=== PATIENT | female | born 1970 | race Caucasian/White ===

== ENCOUNTER → 2019-09-20 | Outpatient (CLI) | payer SELFPAY | PROVIDERS: Family Provider Nurse Practitioner; Visit Provider Podiatrist Foot & Ankle Surgery | DX: Z46.89 Encounter for fitting and adjustment of other specified devices (principal); M21.42 Flat foot [pes planus] (acquired), left foot; M21.41 Flat foot [pes planus] (acquired), right foot | CPT/HCPCS: L3030 ==

== ENCOUNTER → 2019-11-22 07:59 | Outpatient (BNVA) | payer BC, SELFPAY | PROVIDERS: Family Provider Nurse Practitioner; PCP Nurse Practitioner; Visit Provider Specialist | DX: G62.9 Polyneuropathy, unspecified (principal) | CPT/HCPCS: 99213 ==

== ENCOUNTER 2020-02-06 21:32 | Emergency (ER) | payer BC, SELFPAY ==
[2020-02-06 21:44] VITALS: BP 141/89; PULSE 80; RESP 16; TEMP 36.8; O2SAT 96; BMI 34.7
--- NOTE | 2020-02-06 21:47 | ED_ITS ---
HPI - Female Genitourinary General: Chief complaint: Urogenital-Female Stated complaint: poss uti Time Seen by Provider: 02/06/20 21:46 History of Present Illness: HPI Narrative: Patient comes in today for complaints of suprapubic, pelvic pain. Patient states that she was on Macrobid about 3 weeks ago for similar symptoms with good results. But about 3 days after stopping the antibiotic she started having recurrence of symptoms. Patient does have a history of urinary tract infections and renal calculi. Patient appears well. Patient appears in no pain. Patient states that she is not much discomfort and does not think it similar to her previous renal calculi events. Review of Systems General: Reports: 10 or more systems reviewed and unremarkable except in HPI and below : Reports: dysuria PFSH ED PFSH: Family History (Updated 12/19/19 @ 16:42 by Alba Licea LPN) Mother Thyroid condition Father Heart disease Other CAD (coronary artery disease) Cancer Diabetes Gout, unspecified Hypertension Stroke Social History Smoking and tobacco status: never smoked Smoking risk assessment/counseling performed?: No Alcohol intake: never Desire information about alcohol rehabilitation?: No Counseling given: No Desire information about substance/drug rehabilitation?: No Counseling given: No Caregiver/support person: No Lives independently: Yes Household members: spouse Marital status: Number of children: 1 Current occupational status: disabled History of recent travel: No Physical Exam Const: COMMON NORMALS: no acute distress and patient oriented x3 GENERAL APPEARANCE: cooperative HENMT: COMMON NORMALS: normocephalic and Normal external nose present HEAD & SCALP: normal to inspection and normocephalic NOSE: Normal external nose present MOUTH: Normal oral and palatal mucosa present Eye: GENERAL EYE: appearance normal, both eyes and all related structures Neck/C-Spine: COMMON NORMALS: full ROM Chest: COMMONS NORMALS: normal inspection of the chest Resp: COMMON NORMALS: normal respiratory effort EFFORT & INSPECTION: Yes able to speak in complete sentences Cardio: COMMON NORMALS: regular rate and regular rhythm RATE: regular rate RHYTHM: regular rhythm GI: COMMON NORMALS: negative for non-tender (mild tenderness in suprapubic area) : COMMON NORMALS: Yes no CVA tenderness BLADDER/KIDNEY EXAM: Yes no CVA tenderness Back/Pelvis: COMMON NORMALS: no CVA tenderness and thoracic and lumbar spine normal to inspection Extremity: COMMON NORMALS: normal to inspection Neuro: COMMON NORMALS: patient oriented x3 and moves all extremities Psych: COMMON NORMALS: mental status grossly normal and cooperative Skin: COMMON NORMALS: no rashes or lesions noted GENERAL SKIN EXAM: no rashes or lesions noted Course Vital Signs: Vital signs: Vital Signs Temperature 98.2 F 02/06/20 21:44 Pulse Rate 63 02/06/20 22:35 Respiratory Rate 16 02/06/20 22:35 Blood Pressure 112/65 02/06/20 22:35 Pulse Oximetry 96 02/06/20 22:35 MDM - Female MDM Narrative: Medical decision making narrative: Patient comes in today for complaints of urinary difficulty. On exam patient has some suprapubic abdominal pain, no significant CVA tenderness. Vital signs are normal. Respirations are even lungs are clear to auscultation. Patient appears well. No signs of serious injury or illness. Differential diagnosis includes but not limited to urinary tract infection, pyelonephritis, cystitis, renal calculi. Urinalysis was positive for large amounts white blood cells. Patient was started on Keflex 500 mg for urinary tract infection. Patient reports understanding of care plan and need for follow-up. Lab Data: Labs: Lab Results 02/06/20 Range/Units 21:50 Urine Color [place]acle (Yellow) Urine Appearance Cloudy (CLEAR) Urine pH TNP Ur Specific Gravit y TNP Urine Protein TNP Urine Glucose (UA) TNP Urine Ketones TNP Urine Blood TNP Urine Nitrate TNP Urine Bilirubin TNP Urine Urobilinogen TNP Ur Leukocyte Yasmeen ase TNP Urine RBC 0-4 H (0-2) /hpf Urine WBC Too numerous to c nt H (0-5) /hpf Ur Squamous Epith Cells 0-4 H (0-5) Ur Transition Epit h Cell 0-4 /hpf Urine Bacteria 3+ H (NONE) Discharge Plan Discharge Patient Disposition: Home, Self-Care Clinical Impression: Urinary tract infection Qualifiers: Urinary tract infection type: acute cystitis Hematuria presence: without hematuria Qualified Code(s): N30.00 - Acute cystitis without hematuria Condition: Stable Prescriptions: New cephalexin 500 mg capsule 500 mg PO TID 7 Days Qty: 21 RF: 0 No Action Ozempic 1 mg/dose (2 mg/1.5 mL) pen injector 1 mg SUBCUT .weekly RF: 0 levothyroxine 75 mcg capsule 75 mcg PO QDAY RF: 0 pregabalin [Lyrica] 150 mg capsule 150 mg PO TID RF: 0 metformin 750 mg tablet extended release 24 hr 750 mg PO BID RF: 0 cetirizine 10 mg capsule 10 mg PO QDAY RF: 0 diltiazem HCl [Cardizem] 120 mg tablet 120 mg PO DAILY RF: 0 flecainide 50 mg tablet 50 mg PO BID RF: 0 Eliquis 5 mg tablet 5 mg PO BID RF: 0 metoprolol tartrate 50 mg tablet 50 mg PO BID RF: 0 cyclobenzaprine 10 mg tablet 10 mg PO TID PRNRF: 0 ergocalciferol (vitamin D2) 50,000 unit capsule 50,000 unit PO ONCE RF: 0 omeprazole 20 mg capsule,delayed release(DR/EC) 20 mg PO QDAY RF: 0 tramadol 50 mg tablet 50 mg PO BID PRNRF: 0 zonisamide [Zonegran] 100 mg capsule 400 mg PO QDAY Qty: 120 RF: 11 trazodone 50 mg tablet 150 mg PO DAILY Qty: 90 RF: 11 Referrals: Reggie Bennett, [facility] [Primary Care Provider] - Discharge Diet: Usual diet Discharge Activity: Increase activity as tolerated Patient Instructions: Urinary Tract Infection in Women (ED) Activity Restrictions/Additional Instructions: Drink plenty of water with medication. Take antibiotics as directed for the next 7 days. Follow-up with primary care in 1 week for recheck of urine. Return to the ER for high fever, nausea and vomiting, or new concerns. 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
[2020-02-06 21:57] VITALS: BP 107/58; PULSE 64; RESP 18; O2SAT 97
[2020-02-06 22:13] LABS: Urine Appearance Cloudy (CLEAR); Urine Color Orange (Yellow)
[2020-02-06 22:14] LABS: Add Urine Microscopic? YES
[2020-02-06 22:23] LABS: Add Urine Culture? Yes; Bacteria Urine 3+; RBC Urine 0-4 /hpf (0-2); Squamous Epithelial Cell Urine 0-4 (0-5); Transitional Epi Cells Urine 0-4 /hpf; WBC Urine TOO NUMEROUS TO CNT /hpf (0-5)
[2020-02-06 22:35] VITALS: BP 112/65; PULSE 63; RESP 16; O2SAT 96
[2020-02-06] MEDS: cephALEXin 500 mg Capsule PO (22:56)
--- NOTE | 2020-02-06 23:00 | PC.NURSE ---
pt. care and report given to Israel Mondragon RN
== END 2020-02-06 22:59 | disposition home or self-care (01) ==
PROVIDERS: Emergency Provider Nurse Practitioner Family; PCP Nurse Practitioner
DX: N30.00 Acute cystitis without hematuria (principal); Z79.01 Long term (current) use of anticoagulants; Z79.84 Long term (current) use of oral hypoglycemic drugs
CPT/HCPCS: 12345; 81001; 87077; 87086; 87186; 99282; 99283

== ENCOUNTER 2020-03-18 13:15 | Emergency (ER) | payer BC, SELFPAY ==
[2020-03-18 13:20] VITALS: BMI 36.1
[2020-03-18 13:25] VITALS: BP 166/118; PULSE 62; RESP 18; TEMP 36.6; O2SAT 98
--- NOTE | 2020-03-18 13:55 | CTR_ITS ---
PROCEDURE INFORMATION: Exam: CT Head Without Contrast Exam date and time: 03/18/2020 2:06 PM Age: 50 years old Clinical indication: Pain; Patient HX: C/O R earache, headache and dizziness; Additional info: Headache TECHNIQUE: Imaging protocol: Computed tomography of the head without contrast. Radiation optimization: All CT scans at this facility use at least one of these dose optimization techniques: automated exposure control; mA and/or kV adjustment per patient size (includes targeted exams where dose is matched to clinical indication); or iterative reconstruction. COMPARISON: No relevant prior studies available. RADIATION DOSE METRICS: Total DLP (mGy-cm): 809.89 FINDINGS: Brain: Normal. No hemorrhage. Unremarkable white matter. No mass effect. Ventricles: No hydrocephalus or evidence of increased intracranial pressure. Bones/joints: Unremarkable. No acute fracture. Sinuses: Visualized sinuses are unremarkable. No fluid levels. Mastoid air cells: Visualized mastoid air cells are well aerated. Soft tissues: Unremarkable. CT/CT head wo con* [id number] IMPRESSION: No acute intracranial abnormality identified. Radiation Dose CTDIVOL = (mGy): DLP = 809.89 (mGy-cm)
--- NOTE | 2020-03-18 13:56 | ED_ITS ---
HPI - General Adult General: Chief complaint: General Medical Stated complaint: earache Time Seen by Provider: 03/18/20 13:25 History of Present Illness: HPI narrative: Patient had a phone office visit for an earache 2 days ago and was prescribed Augmentin. Since that time she malaise and generalized weakness, severe headache, and also some atypical chest pain. Onset (ago): day(s) Associated symptoms: Reports no associated symptoms Review of Systems General: Reports: 10 or more systems reviewed and unremarkable except in HPI and below PFSH ED PFSH: Medical History Adult hypothyroidism Atrial fibrillation Controlled type 2 diabetes mellitus with hyperglycemia, without long-term current use of insulin HTN (hypertension) Hyperlipidemia Surgical History H/O cystoscopy 2014 History of cholecystectomy History of colonoscopy Endoscopy 2016 History of hysterectomy Family History Mother Thyroid condition Father Heart disease Other CAD (coronary artery disease) Cancer Diabetes Gout, unspecified Hypertension Stroke Social History Smoking and tobacco status: never smoked Smoking risk assessment/counseling performed?: No Alcohol intake: never Desire information about alcohol rehabilitation?: No Counseling given: No Desire information about substance/drug rehabilitation?: No Counseling given: No Caregiver/support person: No Lives independently: Yes Household members: spouse Marital status: Number of children: 1 Current occupational status: disabled History of recent travel: No Physical Exam Const: COMMON NORMALS: no acute distress, healthy appearing and well nourished GENERAL APPEARANCE: cooperative and well developed HENMT: COMMON NORMALS: normocephalic and atraumatic HEAD & SCALP: normal to inspection, normocephalic and atraumatic Eye: GENERAL EYE: appearance normal, both eyes and all related structures Neck/C-Spine: COMMON NORMALS: full ROM, no lymphadenopathy and no meningeal signs GENERAL: Yes normal visual inspection CERVICAL SPINE: Yes cervical ROM normal and Yes normal cervical lordosis Chest: COMMONS NORMALS: normal inspection of the chest and normal palpation of entire chest wall Resp: COMMON NORMALS: normal respiratory effort, clear to auscultation bilaterally and percussion normal AUSCULTATION: clear to auscultation bilaterally PERCUSSION: percussion normal Cardio: COMMON NORMALS: regular rate, regular rhythm, S1 normal heart sound present and S2 normal heart sound present JUGULAR VENOUS DISTENTION: no JVD PALPATION: normal PMI RATE: regular rate RHYTHM: regular rhythm HEART SOUNDS: S1 normal heart sound present and S2 normal heart sound present GI: COMMON NORMALS: Soft to palpation and No hepatosplenomegaly present INSPECTION: Yes normal to inspection PALPATION: Yes Soft to palpation and Yes No hepatosplenomegaly present PERCUSSION: normal to percussion : COMMON NORMALS: Yes no CVA tenderness BLADDER/KIDNEY EXAM: Yes no CVA tenderness Back/Pelvis: COMMON NORMALS: no CVA tenderness, thoracic and lumbar spine normal to inspection and thoraco-lumbar ROM normal Extremity: COMMON NORMALS: normal to inspection, full ROM and capillary refill normal Neuro: MENINGEAL SIGNS: Yes no meningeal signs Skin: COMMON NORMALS: no rashes or lesions noted, no wounds and turgor normal GENERAL SKIN EXAM: no rashes or lesions noted, elasticity normal and turgor normal LESIONS: no lesions RASHES: no rashes TRAUMA: no lacerations or abrasions HAIR: normal NAILS: normal Course Vital Signs: Vital signs: Vital Signs Temperature 97.9 F 03/18/20 13:25 Pulse Rate 62 03/18/20 13:25 Respiratory Rate 18 03/18/20 13:25 Blood Pressure 166/118 03/18/20 13:25 Pulse Oximetry 98 03/18/20 13:25 [facility] - General Adult Lab Data: Labs: Lab Results 03/18/20 03/18/20 03/18/20 Range/Units 14:04 14:04 14:04 WBC 9.0 (4.0-10.0) 10^3/ uL RBC 4.30 (4.1-5.3) 10^6/u L Hgb 12.4 (11.5-15.3) g/dL Hct 39.6 (37.0-47.0) % MCV 92.1 (81-99) fL MCH 28.8 (28.0-34.0) pg MCHC 31.3 (30.0-36.0) g/dL RDW 13.3 (12.1-15.1) % Plt Count 259 (130-400) 10^3/c mm MPV 10.1 (7.4-10.4) fL Neut % (Auto) 52.1 % Lymph % (Auto) 38.4 % Marin % (Auto) 5.5 % Eos % (Auto) 3.1 % Baso % (Auto) 0.8 % Neut # (Auto) 4.7 (1.8-7.7) 10^3/u L Lymph # (Auto) 3.5 (0.8-4.8) 10^3/u L Marin # (Auto) 0.5 (0.2-0.9) 10^3/u L Eos # (Auto) 0.3 (0.0-0.8) 10^3/u L Baso # (Auto) 0.1 (0.0-0.1) 10^3/u L Nucleated RBC % (a uto) 0 % Nucleated RBCs # 0.0 /100WBC Lactate 0.8 (0.5-2.2) mmol/L Troponin T Baselin e 7 (0-10) ng/L Discharge Plan Discharge Prescriptions: No Action Ozempic 1 mg/dose (2 mg/1.5 mL) pen injector 1 mg SUBCUT .weekly RF: 0 levothyroxine 75 mcg capsule 75 mcg PO DAILY RF: 0 cetirizine 10 mg capsule 10 mg PO DAILY RF: 0 diltiazem HCl [Cardizem] 120 mg tablet 60 mg PO BID RF: 0 Eliquis 5 mg tablet 5 mg PO BID RF: 0 metoprolol tartrate 50 mg tablet 50 mg PO BID RF: 0 cyclobenzaprine 10 mg tablet 10 mg PO TID PRN (Reason: Muscle Spasm) RF: 0 omeprazole 20 mg capsule,delayed release(DR/EC) 20 mg PO DAILY RF: 0 amoxicillin-pot clavulanate [Augmentin] 875-125 mg Tablet 1 tab PO Q12H RF: 0 aspirin 325 mg Tablet 325 mg PO PRN RF: 0 Tylenol Extra Strength 500 mg Tablet 500 - 1,000 mg PO PRN RF: 0 potassium citrate 10 mEq (1,080 mg) tablet extended release 10 meq PO TID RF: 0 Vitamin D3 50 mcg (2,000 unit) Tablet 50 mcg PO DAILY RF: 0 trazodone 50 mg tablet 150 mg PO BEDTIME PRN (Reason: Sleep) RF: 0 Zonegran 100 mg capsule 400 mg PO DAILY RF: 0 Coding Level of Care Code 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
[2020-03-18 14:14] LABS: Basophils # 0.1 10^3/uL (0.0-0.1); Basophils % 0.8 %; Eosinophils # 0.3 10^3/uL (0.0-0.8); Eosinophils % 3.1 %; Hematocrit 39.6 % (37.0-47.0); Hemoglobin 12.4 g/dL (11.5-15.3); Lymphocytes # 3.5 10^3/uL (0.8-4.8); Lymphocytes % 38.4 %; Mean Corpuscular HGB Conc 31.3 g/dL (30.0-36.0); Mean Corpuscular Hemoglobin 28.8 pg (28.0-34.0); Mean Corpuscular Volume 92.1 fL (81-99); Mean Platelet Volume 10.1 fL (7.4-10.4); Monocytes # 0.5 10^3/uL (0.2-0.9); Monocytes % 5.5 %; Neutrophils # 4.7 10^3/uL (1.8-7.7); Neutrophils % 52.1 %; Nucleated Red Blood Cells % 0 %; Platelet Count 259 10^3/cmm (130-400); Red Cell Distribution Width 13.3 % (12.1-15.1)
--- NOTE | 2020-03-18 14:14 | PC.NURSE ---
TO CT SCAN PER CART
[2020-03-18 14:33] LABS: Lactate (Lactic Acid level) 0.8 mmol/L (0.5-2.2); Troponin(5th) Baseline 7 ng/L (0-10)
[2020-03-18 14:43] LABS: Alanine Aminotransferase 13 U/L (0-33); Albumin Level 3.9 g/dL (3.5-5.2); Alkaline Phosphatase 72 IU/L (35-105); Anion Gap 14.2 (5-19); Aspartate Amino Transferase 12 U/L (0-32); Blood Urea Nitrogen 25 mg/dL (6-20); Calcium 9.4 mg/dL (8.5-10.5); Carbon Dioxide 25 mmol/L (22-29); Chloride 105 mmol/L (98-107); Globulin 2.3 g/dL (1.3-4.6); Glomerular Filtration Rate 58.5 mL/min (90-130); Glucose 155 mg/dL (65-115); Magnesium 1.8 mg/dL (1.7-2.3); Osmolality Calculated 290 mOsm/kg (285-295); Phosphorus 3.7 mg/dL (2.5-4.5); Potassium 4.2 mmol/L (3.5-5.1); Sodium 140 mmol/L (136-145); Thyroid Stimulating Hormone 0.94 uIU/mL (0.27-4.20); Total Bilirubin 0.2 mg/dL (0.15-1.2); Total Protein 6.2 g/dL (6.6-8.7)
[2020-03-18 15:01] LABS: Add Urine Microscopic? NO
[2020-03-18 15:09] LABS: Bilirubin Urine Neg (NEGATIVE); Blood Urine Neg (Negative); Glucose Urine UA Norm (Normal); Ketones Urine Negative (Negative); Nitrate Urine Negative (Negative); Protein Urine Neg (Negative); Urine Appearance Clear (CLEAR); Urine Color Yellow (Yellow); pH Urine 5 (5-7)
[2020-03-18 15:10] LABS: Leukocyte Esterase Urine Negative (Negative); Urobilinogen Urine Norm (Negative)
[2020-03-18] MEDS: acetaminophen 500 mg Tablet 1000 MG PO (15:38)
[2020-03-18 16:16] LABS: Troponin 5 2HR 6.95 ng/L (0-10)
[2020-03-18 16:41] LABS: Troponin 5 2HR Delta -0.05 ABS# (0-10)
--- NOTE | 2020-03-18 19:56 | ECG_ITS ---
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 Measurements Intervals [place] Rate: 53 P: 19 MN: 177 QRS: 30 QRSD: 89 T: 37 QT: 409 QTc: 387 Interpretive Statements SINUS BRADYCARDIA WITH SINUS ARRHYTHMIA Compared to ECG 02/15/2019 17:46:30 Sinus rhythm no longer present Myocardial infarct finding no longer present Electronically Signed On 03-18-2020 15:16:24 CDT by Cezar Sanchez M.D. [id number]
== END 2020-03-18 16:43 | disposition home or self-care (01) ==
PROVIDERS: Emergency Provider Family Medicine; Family Provider Nurse Practitioner; PCP Nurse Practitioner Family
DX: H92.09 Otalgia, unspecified ear (principal); Z79.01 Long term (current) use of anticoagulants; Z79.82 Long term (current) use of aspirin; I48.91 Unspecified atrial fibrillation; E11.9 Type 2 diabetes mellitus without complications; I10 Essential (primary) hypertension; E78.5 Hyperlipidemia, unspecified
CPT/HCPCS: 12345; 36415; 70450; 80053; 81003; 83605; 83735; 84100; 84443; 84484; 85025; 93005; 99283

== ENCOUNTER → 2020-04-24 13:41 | Outpatient (BNVA) | payer BC, SELFPAY | PROVIDERS: Family Provider Nurse Practitioner; PCP Nurse Practitioner Family; Referring Provider Nurse Practitioner Family; Visit Provider Dermatology | DX: D22.9 Melanocytic nevi, unspecified (principal); L90.5 Scar conditions and fibrosis of skin; Z12.83 Encounter for screening for malignant neoplasm of skin | CPT/HCPCS: 99203 ==

== ENCOUNTER 2020-08-20 06:39 | Emergency (ER) | payer BC, SELFPAY ==
[2020-08-20 06:43] VITALS: BP 162/101; PULSE 68; RESP 15; TEMP 36.7; O2SAT 98; BMI 36.1
[2020-08-20 07:47] LABS: Blood Urine 2+ (Negative); Glucose Urine UA Norm (Normal); Ketones Urine Negative (Negative); Protein Urine 1+ (Negative); Specific Gravity, Urine 1.015 (1.005-1.030); Urine Appearance Clear (CLEAR); Urine Color Orange (Yellow); pH Urine 5 (5-7)
[2020-08-20 07:48] LABS: Add Urine Microscopic? YES; Bilirubin Urine 1+ (Negative); Leukocyte Esterase Urine Trace (Negative); Nitrate Urine Positive (Negative); Urobilinogen Urine 4 mg/dL (Negative)
[2020-08-20 07:52] LABS: Add Urine Culture? Yes; Bacteria Urine 1+ /hpf; RBC Urine 0-4 /hpf (0-2); WBC Urine 25-40 /hpf (0-5)
--- NOTE | 2020-08-20 07:53 | ED_ITS ---
HPI - Female Genitourinary General: Chief complaint: Urogenital-Female Stated complaint: lower abd pain/troubling urinating Time Seen by Provider: 08/20/20 06:47 History of Present Illness: HPI Narrative: 50-year-old female comes in complaining of dysuria urgency and frequency. She was treated last month for UTI and then again within the last week. She had a telehealth visit where she was prescribed a 5-day course of Bactrim and she is completed that and still having symptoms. She denies any flank pain she still has some dysuria initially had some hematuria that seem to resolved with the Bactrim. She not had any vomiting or diarrhea. MD elicited complaint: dysuria and UTI Pertinent past history: recurrent UTIs Onset (ago): day(s) Severity: moderate Female Urogenital Radiation: Non-Radiating Quality of pain: cramping Consistency: intermittent Vaginal discharge: none Vaginal bleeding: none Urinary symptoms: Dysuria, Frequency and Urgency Exacerbating factors: none Relieving factors: none Associated symptoms: Deny abdominal pain, short of breath, fevers/chills, headache(s), nausea, rash, seizures, syncope, vaginal discharge or weakness Review of Systems Const: Denies: fever(s), chills, body aches, change in appetite, fatigue or malaise ENMT: Denies: throat pain, ear or mastoid pain, nasal discharge or nasal congestion Card: Denies: syncope Resp: Denies: dyspnea, productive cough or non-productive cough GI: Denies: abdominal pain or nausea : Denies: vaginal discharge Skin/Breast: Denies: rash or pruritus Neuro: Denies: headache(s) [facility] ED PFSH: Medical History (Updated 08/20/20 @ 07:56 by Nico Sanchez DO) Adult hypothyroidism Atrial fibrillation Controlled type 2 diabetes mellitus with hyperglycemia, without long-term current use of insulin HTN (hypertension) Hyperlipidemia Surgical History H/O cystoscopy 2014 History of cholecystectomy History of colonoscopy Endoscopy 2016 History of hysterectomy Family History Mother Thyroid condition Father Heart disease Other CAD (coronary artery disease) Cancer Diabetes Gout, unspecified Hypertension Stroke Social History Smoking and tobacco status: never smoked Smoking risk assessment/counseling performed?: No Alcohol intake: never Desire information about alcohol rehabilitation?: No Counseling given: No Desire information about substance/drug rehabilitation?: No Counseling given: No Caregiver/support person: No Lives independently: Yes Household members: spouse Marital status: Number of children: 1 Current occupational status: disabled History of recent travel: No Physical Exam Const: COMMON NORMALS: no acute distress GENERAL APPEARANCE: cooperative and comfortable ORIENTATION/CONSCIOUSNESS: Yes awake, Yes oriented to person, Yes oriented to place and Yes oriented to time HENMT: COMMON NORMALS: normocephalic, atraumatic and hearing grossly normal bilaterally HEAD & SCALP: normocephalic and atraumatic Neck/C-Spine: COMMON NORMALS: no JVD Resp: COMMON NORMALS: normal respiratory effort, No retractions, No use of accessory muscles and clear to auscultation bilaterally AUSCULTATION: clear to auscultation bilaterally Cardio: COMMON NORMALS: no JVD, regular rate, regular rhythm and No murmurs present (Cardio) RATE: regular rate RHYTHM: regular rhythm GI: COMMON NORMALS: Soft to palpation and No hepatosplenomegaly present AUSCULTATION: Yes normoactive bowel sounds PALPATION: Yes Soft to palpation, No Tenderness to palpation present (GI), No Guarding due to palpation present (GI) and Yes No hepatosplenomegaly present Extremity: COMMON NORMALS: normal to inspection, capillary refill normal, no clubbing, cyanosis or edema, no calf tenderness and no pedal edema Neuro: SENSORIUM/ORIENTATION: Yes oriented to person, Yes oriented to place and Yes oriented to time Skin: COMMON NORMALS: no rashes or lesions noted GENERAL SKIN EXAM: no rashes or lesions noted Course Vital Signs: Vital signs: Vital Signs Temperature 98.1 F 08/20/20 06:43 Pulse Rate 68 08/20/20 06:43 Respiratory Rate 15 08/20/20 06:43 Blood Pressure 162/101 08/20/20 06:43 Pulse Oximetry 98 08/20/20 06:43 MDM - Female MDM Narrative: Medical decision making narrative: UA positive. Will culture. Started on Cipro for 5 days Lab Data: Labs: Lab Results 08/20/20 Range/Units 06:59 Urine Color [place] (Yellow) Urine Appearance Clear (CLEAR) Urine pH 5 (5-7) Ur Specific Gravit y 1.015 (1.005-1.030) Urine Protein 1+ H (Negative) Urine Glucose (UA) Norm (Normal) Urine Ketones Negative (Negative) Urine Blood 2+ H (Negative) Urine Nitrate Positive H (Negative) Urine Bilirubin 1+ H (Negative) Urine Urobilinogen 4 H (Negative) mg/dL Ur Leukocyte Yasmeen ase Trace H (Negative) Urine RBC 0-4 H (0-2) /hpf Urine WBC 25-40 H (0-5) /hpf Ur Squamous Epith Cells 5-10 H (0-5) /hpf Amorphous Sediment Not Reportable Urine Bacteria 1+ H (NONE) /hpf Discharge Plan Discharge Patient Disposition: Home Clinical Impression: Urinary tract infection Condition: Stable Prescriptions: New ciprofloxacin HCl 500 mg tablet 500 mg PO BID 7 Days Qty: 14 RF: 0 No Action levothyroxine 75 mcg capsule 75 mcg PO DAILY RF: 0 cetirizine 10 mg capsule 10 mg PO DAILY RF: 0 diltiazem HCl [Cardizem] 120 mg tablet 60 mg PO BID RF: 0 Eliquis 5 mg tablet 5 mg PO BID RF: 0 metoprolol tartrate 50 mg tablet 50 mg PO BID RF: 0 cyclobenzaprine 10 mg tablet 10 mg PO TID PRN (Reason: Muscle Spasm) RF: 0 omeprazole 20 mg capsule,delayed release(DR/EC) 20 mg PO DAILY RF: 0 Tylenol Extra Strength 500 mg Tablet 500 - 1,000 mg PO PRN RF: 0 potassium citrate 10 mEq (1,080 mg) tablet extended release 10 meq PO TID RF: 0 Vitamin D3 50 mcg (2,000 unit) Tablet 50 mcg PO DAILY RF: 0 Zonegran 100 mg capsule 400 mg PO DAILY RF: 0 Discharge Orders: Discharge Order (Routine); Ordered 08/20/20 Ordered By: Nico Sanchez Referrals: Zohra Leary NP [Primary Care Provider] - Discharge Diet: Usual diet Discharge Activity: Resume usual activity Coding Level of Care Code 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
[2020-08-20 08:06] VITALS: BP 186/98; PULSE 51; O2SAT 96
== END 2020-08-20 08:05 | disposition home or self-care (01) ==
PROVIDERS: Emergency Provider Family Medicine; PCP Nurse Practitioner Family
DX: N39.0 Urinary tract infection, site not specified (principal); Z79.01 Long term (current) use of anticoagulants; I48.91 Unspecified atrial fibrillation; E11.9 Type 2 diabetes mellitus without complications; I10 Essential (primary) hypertension; E78.5 Hyperlipidemia, unspecified
CPT/HCPCS: 12345; 81001; 87086; 99281; 99282

== ENCOUNTER 2020-09-09 03:42 | Observation (INO) | payer BC, SELFPAY ==
[2020-09-09] VITALS (47 sets, daily range): BP systolic 103–159; BP diastolic 62–104; PULSE 40–82; RESP 15–24; TEMP 36.5–37.2; O2SAT 92–100; BMI 34.2
--- NOTE | 2020-09-09 04:07 | XRR_ITS ---
PROCEDURE INFORMATION: Exam: XR Chest, 1 View Exam date and time: 09/09/2020 4:23 AM Age: 50 years old Clinical indication: Shortness of breath; Additional info: SOB TECHNIQUE: Imaging protocol: XR of the chest Views: 1 view. COMPARISON: CR Chest 2 views* [id number] 02/15/2019 12:17 PM FINDINGS: Lung volumes are somewhat low. Otherwise no focal right pulmonary consolidation is demonstrated on this single frontal image. Mild ill-defined opacification in left perihilar region is most compatible with atelectasis/infiltrate. No significant obscuration of the lateral costophrenic angles is demonstrated. No significant vascular congestion is demonstrated. Visualized cardiac silhouette size appears within normal limits. XR/XR chest 1V portable [id number] IMPRESSION: Mild ill-defined opacification in left perihilar region is most compatible with atelectasis/infiltrate.
[2020-09-09 04:13] LABS: Basophils % 0.4 %; Eosinophils # 0.1 10^3/uL (0.0-0.8); Eosinophils % 0.6 %; Hematocrit 39.5 % (37.0-47.0); Hemoglobin 12.5 g/dL (11.5-15.3); Lymphocytes # 1.4 10^3/uL (0.8-4.8); Lymphocytes % 17.2 %; Mean Corpuscular HGB Conc 31.6 g/dL (30.0-36.0); Mean Corpuscular Hemoglobin 28.7 pg (28.0-34.0); Mean Corpuscular Volume 90.6 fL (81-99); Mean Platelet Volume 10.4 fL (7.4-10.4); Monocytes # 0.4 10^3/uL (0.2-0.9); Monocytes % 4.6 %; Neutrophils # 6.16 10^3/uL (1.8-7.7); Neutrophils % 76.7 %; Nucleated Red Blood Cells % 0 %; Platelet Count 201 10^3/cmm (130-400); Red Blood Count 4.36 10^6/uL (4.1-5.3); Red Cell Distribution Width 13.8 % (12.1-15.1)
[2020-09-09 04:25] LABS: Lactate (Lactic Acid level) 1.9 mmol/L (0.5-2.2)
[2020-09-09 04:27] LABS: INR 1.28 (0.8-1.2)
[2020-09-09 04:28] LABS: Partial Thromboplastin Time 29.1 SECONDS (23.9-36.7); Troponin(5th) Baseline 11 ng/L (0-10)
[2020-09-09 04:35] LABS: Alanine Aminotransferase 16 U/L (0-33); Albumin Level 3.9 g/dL (3.5-5.2); Alkaline Phosphatase 95 IU/L (35-105); Anion Gap 13.5 (5-19); Aspartate Amino Transferase 14 U/L (0-32); Blood Urea Nitrogen 22 mg/dL (6-20); Calcium 8.9 mg/dL (8.5-10.5); Carbon Dioxide 25 mmol/L (22-29); Chloride 98 mmol/L (98-107); Creatine Phosphokinase 74 U/L (26-192); Globulin 2.7 g/dL (1.3-4.6); Glomerular Filtration Rate 43.2 mL/min (90-130); Glucose 327 mg/dL (65-115); Magnesium 1.8 mg/dL (1.7-2.3); NT Pro B Type Natriuretic Pept 134 pg/mL (0-125); Osmolality Calculated 290 mOsm/kg (285-295); Potassium 4.5 mmol/L (3.5-5.1); Sodium 132 mmol/L (136-145); Total Bilirubin 0.3 mg/dL (0.15-1.2); Total Protein 6.6 g/dL (6.6-8.7)
--- NOTE | 2020-09-09 05:15 | W.ED.CHESTPA ---
HPI - Chest Pain General: Chief Complaint: Chest Pain Stated Complaint: SOB Time Seen by Provider: 09/09/20 03:58 History of Present Illness: HPI narrative: 50-year-old female with a history of atrial fibrillation. She presents with shortness of breath and some chest discomfort developing over the last 2 days or so. She denies any fever or significant cough. She notes her legs are a bit more swollen than usual. She denies any coronary disease. She is anticoagulated. She also notes that her heart rate feels slow, and skips . She states that it races when she exerts herself. MD complaint: chest pain Pertinent past history: other Onset (ago): day(s) Timing of current episode: constant Prior episodes: Yes Onset: during rest Pain location: substernal Pain radiation: none Quality: heaviness Relieving factors: nothing Exacerbating factors: nothing Associated symptoms: Reports dyspnea, leg edema and palpitations; Deny diaphoresis, fever(s) or vomiting Review of Systems Const: Denies: fever(s) or diaphoresis Eyes: Denies: change in vision or blurry vision ENMT: Denies: odynophagia, swelling of lips/tongue, bleeding gums, dental pain, change in hearing, epistaxis, post nasal drip or sinus pain Card: Reports: palpitations Resp: Reports: dyspnea GI: Denies: vomiting : Denies: dysuria, urinary urgency or hematuria Musc: Denies: neck pain or joint warmth Skin/Breast: Denies: rash, pruritus or erythema Neuro: Denies: headache(s), dizziness or vertigo Psych: Denies: anxiety PFSH ED PFSH: Medical History (Updated 08/28/20 @ 00:00 by ) Adult hypothyroidism Atrial fibrillation Controlled type 2 diabetes mellitus with hyperglycemia, without long-term current use of insulin HTN (hypertension) Hyperlipidemia Surgical History H/O cystoscopy 2014 History of cholecystectomy History of colonoscopy Endoscopy 2016 History of hysterectomy Family History Mother Thyroid condition Father Heart disease Other CAD (coronary artery disease) Cancer Diabetes Gout, unspecified Hypertension Stroke Social History Smoking and tobacco status: never smoked Smoking risk assessment/counseling performed?: No Alcohol intake: never Desire information about alcohol rehabilitation?: No Counseling given: No Desire information about substance/drug rehabilitation?: No Counseling given: No Caregiver/support person: No Lives independently: Yes Household members: spouse Marital status: Number of children: 1 Current occupational status: disabled History of recent travel: No Physical Exam Const: GENERAL APPEARANCE: well developed ORIENTATION/CONSCIOUSNESS: Yes oriented to person, Yes oriented to place and Yes oriented to time HENMT: COMMON NORMALS: normocephalic, external ears normal and Normal external nose present HEAD & SCALP: normocephalic FACE & SINUS: normal facial exam NOSE: Normal external nose present and No nasal discharge present EXTERNAL EAR: Yes external ears normal Eye: COMMON NORMALS: Equal, round and reactive pupils present, EOMs intact bilaterally and conjunctivae normal EYELID: eyelids normal CONJUNCTIVA: Yes conjunctivae normal PUPIL: Yes Equal, round and reactive pupils present Neck/C-Spine: COMMON NORMALS: full ROM GENERAL: No tracheal deviation CERVICAL SPINE: Yes normal cervical lordosis and No Cervical spine tenderness Chest: COMMONS NORMALS: normal inspection of the chest CHEST: No tenderness Resp: COMMON NORMALS: clear to auscultation bilaterally EFFORT & INSPECTION: No tachypneic, No respiratory distress, No retractions, No uses accessory muscles and No tracheal deviation AUSCULTATION: clear to auscultation bilaterally, no rhonchi, no wheezes and lung sounds not diminished Cardio: COMMON NORMALS: regular rhythm RHYTHM: regular rhythm HEART SOUNDS: no murmurs PERIPHERAL PULSES: radial pulses present GI: INSPECTION: No abdominal distension AUSCULTATION: No Hyperactive bowel sounds present and No Hypoactive bowel sounds present PALPATION: No Guarding due to palpation present (GI) and No Rigid due to palpation PERCUSSION: no dullness to percussion and no tympanic to percussion : COMMON NORMALS: Yes no CVA tenderness BLADDER/KIDNEY EXAM: Yes no CVA tenderness Back/Pelvis: COMMON NORMALS: no CVA tenderness Neuro: SENSORIUM/ORIENTATION: Yes oriented to person, Yes oriented to place and Yes oriented to time Psych: COMMON NORMALS: mental status grossly normal Course Consultations: Consultation #1: anthony Time: 07:28 Vital Signs: Vital signs: Vital Signs Temperature 97.7 F 09/09/20 04:01 Pulse Rate 54 L 09/09/20 07:26 Respiratory Rate 18 09/09/20 07:26 Blood Pressure 133/77 09/09/20 07:26 Pulse Oximetry 96 09/09/20 07:26 MDM - Chest Pain MDM Narrative: Medical decision making narrative: 50-year-old female with a history of atrial fibrillation on 2 different antiarrhythmics. She presents with generalized weakness, and significant shortness of breath. No history of fever. Her creatinine is up at 1.3. Her baseline is 1. Her heart rate has been 42-52. She in the beginning was mildly hypotensive, but improved after fluid. Her saturations have been adequate on room air. She has a left lower lobe infiltrate on chest x-ray. Her COVID-19 rapid test is pending. She will go to the ICU. If her Covid antigen is positive, she will go to the viral ICU. Lab Data: Labs: Lab Results 09/09/20 09/09/20 09/09/20 Range/Units 03:59 03:59 03:59 WBC 8.0 (4.0-10.0) 10^3/ uL RBC 4.36 (4.1-5.3) 10^6/u L Hgb 12.5 (11.5-15.3) g/dL Hct 39.5 (37.0-47.0) % MCV 90.6 (81-99) fL MCH 28.7 (28.0-34.0) pg MCHC 31.6 (30.0-36.0) g/dL RDW 13.8 (12.1-15.1) % Plt Count 201 (130-400) 10^3/c mm MPV 10.4 (7.4-10.4) fL Neut % (Auto) 76.7 % Lymph % (Auto) 17.2 % Costilla % (Auto) 4.6 % Eos % (Auto) 0.6 % Baso % (Auto) 0.4 % Neut # (Auto) 6.16 (1.8-7.7) 10^3/u L Lymph # (Auto) 1.4 (0.8-4.8) 10^3/u L Cost[place] # (Auto) 0.4 (0.2-0.9) 10^3/u L Eos # (Auto) 0.1 (0.0-0.8) 10^3/u L Baso # (Auto) 0.0 (0.0-0.1) 10^3/u L Nucleated RBC % (a uto) 0 % Nucleated RBCs # 0.0 /100WBC PT 16.50 H (12.1-14.9) SECO NDS INR 1.28 H (0.8-1.2) APTT 29.1 (23.9-36.7) SECO NDS Sodium 132 L (136-145) mmol/L Potassium 4.5 (3.5-5.1) mmol/L Chloride 98 (98-107) mmol/L Carbon Dioxide 25 (22-29) mmol/L Anion Gap 13.5 (5-19) BUN 22 H (6-20) mg/dL Creatinine 1.3 H (0.5-0.9) mg/dL GFR Calculation 43.2 L (90-130) mL/min Glucose 327 H (65-115) mg/dL Calculated Osmolal ity 290 (285-295) mOsm/k g Lactate (0.5-2.2) mmol/L Calcium 8.9 (8.5-10.5) mg/dL Phosphorus 3.0 (2.5-4.5) mg/dL Magnesium 1.8 (1.7-2.3) mg/dL Total Bilirubin 0.3 (0.15-1.2) mg/dL AST 14 (0-32) U/L ALT 16 (0-33) U/L Alkaline Phosphata se 95 (35-105) IU/L Creatine Kinase 74 (26-192) U/L Troponin T Baselin e (0-10) ng/L Troponin T 120 Min taty (0-10) ng/L Delta Troponin T (0-10) ABS# NT-Pro-B Natriuret Pep 134 H (0-125) pg/mL Total Protein 6.6 (6.6-8.7) g/dL Albumin 3.9 (3.5-5.2) g/dL Globulin 2.7 (1.3-4.6) g/dL Urine Color (Yellow) Urine Appearance (CLEAR) Urine pH (5-7) Ur Specific Gravit y (1.005-1.030) Urine Protein (Negative) Urine Glucose (UA) (Normal) Urine Ketones (Negative) Urine Blood (Negative) Urine Nitrate (Negative) Urine Bilirubin (Negative) Urine Urobilinogen (Negative) mg/dL Ur Leukocyte Yasmeen ase (Negative) 09/09/20 09/09/20 09/09/20 Range/Units 03:59 03:59 06:05 WBC (4.0-10.0) 10^3/ uL RBC (4.1-5.3) 10^6/u L Hgb (11.5-15.3) g/dL Hct (37.0-47.0) % MCV (81-99) fL MCH (28.0-34.0) pg MCHC (30.0-36.0) g/dL RDW (12.1-15.1) % Plt Count (130-400) 10^3/c mm MPV (7.4-10.4) fL Neut % (Auto) % Lymph % (Auto) % Costilla % (Auto) % Eos % (Auto) % Baso % (Auto) % Neut # (Auto) (1.8-7.7) 10^3/u L Lymph # (Auto) (0.8-4.8) 10^3/u L Costilla # (Auto) (0.2-0.9) 10^3/u L Eos # (Auto) (0.0-0.8) 10^3/u L Baso # (Auto) (0.0-0.1) 10^3/u L Nucleated RBC % (a uto) % Nucleated RBCs # /100WBC PT (12.1-14.9) SECO NDS INR (0.8-1.2) APTT (23.9-36.7) SECO NDS Sodium (136-145) mmol/L Potassium (3.5-5.1) mmol/L Chloride (98-107) mmol/L Carbon Dioxide (22-29) mmol/L Anion Gap (5-19) BUN (6-20) mg/dL Creatinine (0.5-0.9) mg/dL GFR Calculation (90-130) mL/min Glucose (65-115) mg/dL Calculated Osmolal ity (285-295) mOsm/k g Lactate 1.9 (0.5-2.2) mmol/L Calcium (8.5-10.5) mg/dL Phosphorus (2.5-4.5) mg/dL Magnesium (1.7-2.3) mg/dL Total Bilirubin (0.15-1.2) mg/dL AST (0-32) U/L ALT (0-33) U/L Alkaline Phosphata se (35-105) IU/L Creatine Kinase (26-192) U/L Troponin T Baselin e 11 H (0-10) ng/L Troponin T 120 Min taty 10.30 H (0-10) ng/L Delta Troponin T -0.70 L (0-10) ABS# NT-Pro-B Natriuret Pep (0-125) pg/mL Total Protein (6.6-8.7) g/dL Albumin (3.5-5.2) g/dL Globulin (1.3-4.6) g/dL Urine Color (Yellow) Urine Appearance (CLEAR) Urine pH (5-7) Ur Specific Gravit y (1.005-1.030) Urine Protein (Negative) Urine Glucose (UA) (Normal) Urine Ketones (Negative) Urine Blood (Negative) Urine Nitrate (Negative) Urine Bilirubin (Negative) Urine Urobilinogen (Negative) mg/dL Ur Leukocyte Yasmeen ase (Negative) 09/09/20 Range/Units 06:13 WBC (4.0-10.0) 10^3/ uL RBC (4.1-5.3) 10^6/u L Hgb (11.5-15.3) g/dL Hct (37.0-47.0) % MCV (81-99) fL MCH (28.0-34.0) pg MCHC (30.0-36.0) g/dL RDW (12.1-15.1) % Plt Count (130-400) 10^3/c mm MPV (7.4-10.4) fL Neut % (Auto) % Lymph % (Auto) % Cost[place] % (Auto) % Eos % (Auto) % Baso % (Auto) % Neut # (Auto) (1.8-7.7) 10^3/u L Lymph # (Auto) (0.8-4.8) 10^3/u L Cost[place] # (Auto) (0.2-0.9) 10^3/u L Eos # (Auto) (0.0-0.8) 10^3/u L Baso # (Auto) (0.0-0.1) 10^3/u L Nucleated RBC % (a uto) % Nucleated RBCs # /100WBC PT (12.1-14.9) SECO NDS INR (0.8-1.2) APTT (23.9-36.7) SECO NDS Sodium (136-145) mmol/L Potassium (3.5-5.1) mmol/L Chloride (98-107) mmol/L Carbon Dioxide (22-29) mmol/L Anion Gap (5-19) BUN (6-20) mg/dL Creatinine (0.5-0.9) mg/dL GFR Calculation (90-130) mL/min Glucose (65-115) mg/dL Calculated Osmolal ity (285-295) mOsm/k g Lactate (0.5-2.2) mmol/L Calcium (8.5-10.5) mg/dL Phosphorus (2.5-4.5) mg/dL Magnesium (1.7-2.3) mg/dL Total Bilirubin (0.15-1.2) mg/dL AST (0-32) U/L ALT (0-33) U/L Alkaline Phosphata se (35-105) IU/L Creatine Kinase (26-192) U/L Troponin T Baselin e (0-10) ng/L Troponin T 120 Min taty (0-10) ng/L Delta Troponin T (0-10) ABS# NT-Pro-B Natriuret Pep (0-125) pg/mL Total Protein (6.6-8.7) g/dL Albumin (3.5-5.2) g/dL Globulin (1.3-4.6) g/dL Urine Color Dark yellow (Yellow) Urine Appearance Clear (CLEAR) Urine pH 5 (5-7) Ur Specific Gravit y 1.020 (1.005-1.030) Urine Protein Neg (Negative) Urine Glucose (UA) Norm (Normal) Urine Ketones Negative (Negative) Urine Blood Neg (Negative) Urine Nitrate Negative (Negative) Urine Bilirubin Neg (Negative) Urine Urobilinogen Norm (Negative) mg/dL Ur Leukocyte Yasmeen ase Negative (Negative) Discharge Plan Discharge Prescriptions: No Action levothyroxine 75 mcg capsule 75 mcg PO DAILY RF: 0 cetirizine 10 mg capsule 10 mg PO DAILY RF: 0 cyclobenzaprine 10 mg tablet 10 mg PO TID PRN (Reason: Muscle Spasm) RF: 0 omeprazole 20 mg capsule,delayed release(DR/EC) 20 mg PO DAILY RF: 0 metoprolol tartrate 50 mg tablet 50 mg PO BID Qty: 30 RF: 0 Eliquis 5 mg tablet 5 mg PO BID Qty: 60 RF: 0 diltiazem HCl [Cardizem] 120 mg tablet 60 mg PO BID Qty: 60 RF: 0 Tylenol Extra Strength 500 mg Tablet 500 - 1,000 mg PO PRN RF: 0 potassium citrate 10 mEq (1,080 mg) tablet extended release 10 meq PO TID RF: 0 Vitamin D3 50 mcg (2,000 unit) Tablet 50 mcg PO DAILY RF: 0 Zonegran 100 mg capsule 400 mg PO DAILY RF: 0 Coding Level of Care Code ED Stem Roller Operator for Chg Fwd Exam Comprehensive
--- NOTE | 2020-09-09 06:07 | ECG_ITS ---
[facility] Test Date: 2020-09-09 Pat Name: Nyasia Elkins Department: Room: Gender: Female News Director: : 1970 Requested By: Sharad Mehta Order Number: [id number] Kandi MD: Rosa Isela Chapman M.D. Measurements Intervals Russell Rate: 42 P: 35 NC: 176 QRS: 53 QRSD: 86 T: 51 QT: 485 QTc: 408 Interpretive Statements SINUS BRADYCARDIA Compared to ECG 03/18/2020 14:19:46 Sinus arrhythmia no longer present Electronically Signed On 09-10-2020 21:13:06 [employer] TEAM MEMBER by Rosa Isela Chapman M.D. [email or web address]
[2020-09-09 06:24] LABS: Add Urine Microscopic? NO
[2020-09-09 06:49] LABS: Bilirubin Urine Neg (Negative); Blood Urine Neg (Negative); Glucose Urine UA Norm (Normal); Ketones Urine Negative (Negative); Leukocyte Esterase Urine Negative (Negative); Nitrate Urine Negative (Negative); Protein Urine Neg (Negative); Urine Appearance Clear (CLEAR); Urine Color Dark Yellow (Yellow); Urobilinogen Urine Norm (Negative); pH Urine 5 (5-7)
[2020-09-09] MEDS: azithromycin 500 MG in sodium chloride 0.9% 250 ML 250 MG IV (07:19)
[2020-09-09] MEDS: sodium chloride 0.9% 1,000 ML 999 ML IV (07:19)
[2020-09-09] MEDS: cefTRIAXone 1,000 MG in sodium chloride 0.9% (plus) 50 ML 100 MG IV (07:19)
--- NOTE | 2020-09-09 07:27 | PC.NURSE ---
0700- Received report assumed care. No changes noted from report. Pt stable. Alert and oriented.
[2020-09-09 07:43] LABS: SARS Covid-2 Antigen Positive (Negative)
--- NOTE | 2020-09-09 07:55 | P.HP_ITS ---
Providers/Chief Complaint Primary Care Provider: Zohra Leary NP Chief Complaint: SOB History of Present Illness Nyasia Elkins is a 50 year old female presents to emergency department after she nearly passed out. Reports that for the last 3 days she has been more tired and having dry cough and some dyspnea on exertion. She has been working Thursday night and reports that she was sleeping whole day Thursday. She was not eating much yesterday. Reports some left precordial 2 out of 10 nonradiating pressure-like discomfort without associated nausea, diaphoresis or shortness of breath at rest. Denies any alleviating or aggravating factors. She follows with Dr. Chapman for atrial fibrillation and denies previous history of coronary artery disease. She is on metoprolol and diltiazem for long period of time and never had issues until today when she was found to have bradycardia with heart rate in the 50s. Reports her baseline heart rate is in the 80s. In ER she was tested positive for COVID-19 and had evidence of pneumonia on chest x-ray involving left perihilar region. She is anticoagulated with Eliquis and was saturating 96% on room air in ER. Her troponin was slightly elevated likely due to kidney disease and showed no concerning delta. EKG showed sinus bradycardia with no specific ST-T changes. Reports that she frequently gets lower extremity swelling if she is driving car or on her feet for prolonged period of time. Review of Systems Const: Denies: fever(s) or chills Eyes: Denies: change in vision ENMT: Denies: throat pain or change in hearing Card: Reports: chest pain; Denies: edema or lightheadedness Resp: Denies: dyspnea or productive cough GI: Denies: abdominal pain, nausea, vomiting, dysphagia, diarrhea, constipation, hematochezia or melena : Denies: difficulty voiding Musc: Denies: joint pain or joint swelling Skin/Breast: Denies: rash or erythema Neuro: Reports: headache(s) (Very mild frontal and back of her head); Denies: weakness in extremities Psych: Denies: depression Endo: Denies: excessive sweating Christopher/Lymph: Denies: easy bleeding or tender lymph nodes All/Imm: Denies: throat swelling Medications/Allergies Home Medications Medication Instructions Recorded Confirmed Last Taken Type cetirizine 10 mg capsule 10 mg PO DAILY 10/14/19 04/24/20 03/18/20 History cyclobenzaprine 10 mg tablet 10 mg PO TID PRN 10/14/19 04/24/20 Unknown History levothyroxine 75 mcg capsule 75 mcg PO DAILY 10/14/19 04/24/20 03/18/20 History omeprazole 20 mg capsule,delayed 20 mg PO DAILY 10/14/19 04/24/20 Unknown History release Zonegran 400 mg PO DAILY 03/18/20 04/24/20 03/17/20 History acetaminophen [Tylenol Extra 500 - 1,000 mg PO PRN 03/18/20 04/24/20 Unknown History Strength] cholecalciferol (vitamin D3) 50 mcg PO DAILY 03/18/20 04/24/20 Unknown History [Vitamin D3] potassium citrate 10 meq PO TID 03/18/20 04/24/20 Unknown History apixaban 5 mg tablet 5 mg PO BID #60 tab 08/24/20 Unknown Rx diltiazem HCl 120 mg tablet 60 mg PO BID #60 tab 08/24/20 Unknown Rx metoprolol tartrate 50 mg tablet 50 mg PO BID #30 tab 08/24/20 Unknown Rx Allergies Allergy/AdvReac Type Severity Reaction Status Date / Time iodine Allergy Unknown Unknown Verified 08/20/20 06:47 tizanidine Allergy Unknown Unknown Verified 08/20/20 06:47 fluoxetine [From Prozac] Allergy rash Verified 08/20/20 06:47 povidone-iodine Allergy rash Verified 08/20/20 06:47 [From Betadine] soap [From Betadine] Allergy rash Verified 08/20/20 06:47 PFSH Acute PFSH: Medical History (Updated 09/09/20 @ 08:08 by Sarwat Low MD) Adult hypothyroidism Afib Atrial fibrillation Controlled type 2 diabetes mellitus with hyperglycemia, without long-term current use of insulin HTN (hypertension) Hyperlipidemia Hypothyroidism Obesity (BMI 30.0-34.9) Type 2 diabetes mellitus Surgical History H/O cystoscopy 2014 History of cholecystectomy History of colonoscopy Endoscopy 2016 History of hysterectomy Family History Mother Thyroid condition Father Heart disease Other CAD (coronary artery disease) Cancer Diabetes Gout, unspecified Hypertension Stroke Social History Smoking and tobacco status: never smoked Smoking risk assessment/counseling performed?: No Alcohol intake: never Desire information about alcohol rehabilitation?: No Counseling given: No Desire information about substance/drug rehabilitation?: No Counseling given: No Caregiver/support person: No Lives independently: Yes Household members: spouse Marital status: Number of children: 1 Current occupational status: disabled History of recent travel: No Vitals/I&O/Wt Last Vital Signs Temp 97.7 F 09/09/20 04:01 Pulse 54 L 09/09/20 07:26 Resp 18 09/09/20 07:26 BP 133/77 09/09/20 07:26 Pulse Ox 96 09/09/20 07:26 Weight last 48 hrs Weight 111.13 kg Physical Exam Const: COMMON NORMALS: no acute distress, patient oriented x3 and alert HENMT: COMMON NORMALS: normocephalic and atraumatic HEAD & SCALP: normocephalic and atraumatic Eye: COMMON NORMALS: EOMs intact bilaterally, conjunctivae normal and no scleral icterus CONJUNCTIVA: Yes conjunctivae normal Neck/C-Spine: COMMON NORMALS: no lymphadenopathy and no meningeal signs Lymph: LYMPHATIC: no lymphadenopathy noted Chest: COMMONS NORMALS: normal palpation of entire chest wall Resp: COMMON NORMALS: No use of accessory muscles and clear to auscultation bilaterally AUSCULTATION: clear to auscultation bilaterally Cardio: COMMON NORMALS: regular rate, regular rhythm and No murmurs present (Cardio) RATE: regular rate RHYTHM: regular rhythm OTHER: No lower extremity edema GI: COMMON NORMALS: Soft to palpation and non-tender PALPATION: Yes Soft to palpation RECTAL EXAM: deferred : COMMON NORMALS: Yes no CVA tenderness BLADDER/KIDNEY EXAM: Yes no CVA tenderness Back/Pelvis: COMMON NORMALS: no CVA tenderness and thoracic and lumbar spine normal to inspection (She had very mild discomfort on palpation of thoracic p araspinal region) Extremity: COMMON NORMALS: normal to inspection and capillary refill normal Neuro: COMMON NORMALS: patient oriented x3 and no focal motor deficits SENSORIUM/ORIENTATION: Yes alert MENINGEAL SIGNS: Yes no meningeal signs Psych: COMMON NORMALS: mental status grossly normal, Normal thought process present and cooperative THOUGHT PROCESS: Normal thought process present Skin: COMMON NORMALS: no rashes or lesions noted GENERAL SKIN EXAM: no rashes or lesions noted Data : 09/09/20 03:59 09/09/20 03:59 Micro: Microbiology 09/09/20 07:24 Blood Culture - Preliminary Blood SPECIMEN COLLECTED A&P Assessment and plan (1) Pre-syncope: Likely related to dehydration and bradycardia Status: Acute (2) Sinus bradycardia: Appears to be related to medications and possibly COVID-19 infection Status: Acute (3) COVID-19 virus infection: Status: Acute (4) Community acquired pneumonia: Viral and/or bacterial. Status: Acute (5) Hypothyroidism: Status: Acute (6) Obesity (BMI 30.0-34.9): Status: Acute (7) Dehydration with hyponatremia: Status: Acute (8) Acute renal insufficiency: Status: Acute (9) Atypical chest pain: This is likely musculoskeletal secondary to cough. Does not meet criteria for non-ST elevation DC. Status: Acute Additional A&P Information PLAN: IV hydration with normal saline with close monitoring of cardiorespiratory status. Hold brian blocking agents and gradually restart if heart rate starts going up. Start patient on dexamethasone, ceftriaxone and azithromycin. Will not initiate remdesivir at this point. We will monitor closely in vital ICU. Obtain echocardiogram for further evaluation of chest pain and bradycardia. Consider outpatient follow-up with Dr. Chapman upon discharge. Attestations Medical Necessity Statement*: Patient with sinus bradycardia and COVID-19 infection and pneumonia presenting with presyncopal episodes and complaining of chest pain requires close ICU monitoring and treatment. I expect patient will require more than 2 midnights. Coding Level of Care Code Acute Talent Acquisition Administrator for [facility] Fwd Diagnoses Pre-syncope R55 Sinus bradycardia R00.1 COVID-19 virus infection U07.1 Community acquired pneumonia J18.9 Hypothyroidism E03.9 Obesity (BMI 30.0-34.9) E66.9 Dehydration with hyponatremia E86.0; E87.1 Acute renal insufficiency N28.9 Atypical chest pain R07.89
[2020-09-09] MEDS: sodium chloride 0.9% 1,000 ML 75 ML IV (08:59)
[2020-09-09] MEDS: sodium chloride 0.9% 1,000 ML 100 ML IV (09:30)
--- NOTE | 2020-09-09 10:00 | USCV_ITS ---
Nyasia Elkins Age: 50 Gender: F : 1970 Exam Date: 09/09/2020 15:33 Ordering Phys: Sarwat Low MD Technologist: Caryn Turcios [place]am [place] [facility] [place]: Bradycardia, chest pain BP: 103 / 68 HR: 56 Rhythm: Sinus bradycardia Technical Quality: Fair MEASUREMENTS (Male / Female) Normal Values 2D ECHO LV Diastolic Diameter PLAX 3.5 cm 4.2 - 5.9 / 3.9 - 5.3 cm LV Systolic Diameter PLAX 2.5 cm LV Chamber Size 3.5 cm IVS Diastolic Thickness 1.2 cm 0.6 - 1.0 / 0.6 - 0.9 cm IVS Systolic Thickness 1.7 cm LVPW Diastolic Thickness 1.0 cm 0.6 - 1.0 / 0.6 - 0.9 cm LVPW Systolic Thickness 1.2 cm RV Chamber Size 3.0 cm LVOT Diameter 1.9 cm LV Ejection Fraction 2D Teich 57.4 % LA Diameter 3.3 cm LA Width 2.8 cm LA Height 4.1 cm RA Width 2.3 cm RA Height 3.9 cm Aorta at Sinotubular Diameter 2.6 cm M-MODE LV Diastolic Diameter MM 3.9 cm 4.2 - 5.9 / 3.9 - 5.3 cm LV Systolic Diameter MM 2.2 cm LV Ejection Fraction MM Teich 75.5 % IVS Diastolic Thickness MM 1.9 cm 0.6 - 1.0 / 0.6 - 0.9 cm IVS Systolic Thickness MM 2.1 cm LVPW Diastolic Thickness MM 1.4 cm 0.6 - 1.0 / 0.6 - 0.9 cm LVPW Systolic Thickness MM 1.8 cm Aortic Annulus Diameter 3.0 cm LA Ao Ratio MM 1.3 MV E Point Septal Separation 0.3 cm DOPPLER AV Peak Velocity 137.0 cm/s LVOT Peak Velocity 134.0 cm/s AV Area Cont Eq vti 3.0 cm squared AV Area Cont Eq pk 2.8 cm squared MV Area PHT 3.0 cm squared Mitral E to A Ratio 1.2 MV E' Velocity 55.5 cm/s Mitral E to MV E' Ratio 10.4 Mitral E to LV E' Lateral Ratio 9.1 Mitral E to LV E' Septal Ratio 12.2 TV Peak E Velocity 71.0 cm/s Right Atrial Pressure 3.0 mmHg PV Peak Velocity 80.0 cm/s RV Acceleration Time 0.1 s RV Ejection Time 0.3 s RV AcT/ET 0.3 FINDINGS Left Ventricle Normal left ventricular size, systolic function and wall thickness, with no regional wall motion abnormalities. Left ventricular ejection fraction is estimated at 72 %. Normal diastolic function. Right Ventricle Normal right ventricular size and systolic function. Normal pulmonary artery pressure. Right Atrium Left Atrium Normal left atrial size. Mitral Valve Structurally normal mitral valve. No mitral valve stenosis. Trace mitral valve regurgitation. Aortic Valve Structurally normal trileaflet aortic valve. No aortic valve stenosis. No aortic valve regurgitation. Tricuspid Valve Structurally normal tricuspid valve. No tricuspid valve stenosis. Trace tricuspid valve regurgitation. Pulmonic Valve Structurally normal pulmonic valve. No pulmonary valve stenosis. Trace pulmonary valve regurgitation. Pericardium No pericardial effusion. Aorta Normal-sized aortic root. Normal-sized inferior vena cava with normal respiratory variation. CONCLUSIONS 1. Normal left ventricular size, systolic function and wall thickness, with no regional wall motion abnormalities. Left ventricular ejection fraction is estimated at 72 %. Normal diastolic function. 2. Normal right ventricular size and systolic function. 3. No significant valvular abnormality. 4. Right atrial pressure estimated at 3 m mercury. 5. No pericardial effusion. 6. When compared to echocardiogram dated 02/17/20 1 9, there has been no significant change. Rosa Isela Chapman MD (Electronically Signed) Final Date: 10 September 2020 18:17 S
--- NOTE | 2020-09-09 10:07 | ECG_ITS ---
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 Measurements Intervals [place] Rate: 45 P: 35 ID: [id number] QRS: 56 QRSD: 85 T: 55 QT: 468 QTc: 406 Interpretive Statements SINUS BRADYCARDIA Compared to ECG 03/18/2020 14:19:46 Sinus arrhythmia no longer present Electronically Signed On 09-10-2020 21:13:48 DIRECTOR OF PUPIL PERSONNEL PROGRAM by Rosa Isela Chapman M.D. [email or web address] adult care [id number] f
[2020-09-09] MEDS: levothyroxine 150 mcg Tablet 75 MCG PO (11:31)
[2020-09-09] MEDS: pantoprazole DR 40 mg Tablet PO (11:39)
[2020-09-09] MEDS: apixaban 5 mg Tablet PO ×2 (11:40→17:08)
[2020-09-09] MEDS: dexamethasone 4 mg/mL INJ 6 MG IVP (11:40)
[2020-09-09 13:51] LABS: Glucose Point of Care 229 mg/dL (70-110)
[2020-09-09 17:03] LABS: Glucose Point of Care 271 mg/dL (70-110)
[2020-09-09] MEDS: potassium chloride ER 20 mEq Tablet 10 MEQ PO ×2 (17:06→21:07)
[2020-09-09 21:03] LABS: Glucose Point of Care 302 mg/dL (70-110)
[2020-09-09 23:07] LABS: Troponin 5 6HR 6.61 ng/L (0-10)
[2020-09-10] VITALS (12 sets, daily range): BP systolic 150–202; BP diastolic 78–125; PULSE 52–79; RESP 18–28; TEMP 36.7–37.1; O2SAT 91–96; BMI 34.2
[2020-09-10 04:27] LABS: Hematocrit 37.9 % (37.0-47.0); Lymphocytes # 0.9 10^3/uL (0.8-4.8); Lymphocytes % 18.4 %; Mean Corpuscular HGB Conc 31.7 g/dL (30.0-36.0); Mean Corpuscular Hemoglobin 28.3 pg (28.0-34.0); Mean Corpuscular Volume 89.4 fL (81-99); Mean Platelet Volume 10.7 fL (7.4-10.4); Monocytes # 0.2 10^3/uL (0.2-0.9); Monocytes % 3.9 %; Neutrophils # 3.79 10^3/uL (1.8-7.7); Neutrophils % 77.3 %; Nucleated Red Blood Cells % 0 %; Platelet Count 176 10^3/cmm (130-400); Red Blood Count 4.24 10^6/uL (4.1-5.3); Red Cell Distribution Width 13.3 % (12.1-15.1); White Blood Count 4.9 10^3/uL (4.0-10.0)
[2020-09-10] MEDS: sodium chloride 0.9% 1,000 ML 75 ML IV (04:33)
[2020-09-10 04:48] LABS: Alanine Aminotransferase 15 U/L (0-33); Albumin Level 3.6 g/dL (3.5-5.2); Alkaline Phosphatase 80 IU/L (35-105); Anion Gap 13.5 (5-19); Aspartate Amino Transferase 10 U/L (0-32); Blood Urea Nitrogen 20 mg/dL (6-20); Calcium 8.6 mg/dL (8.5-10.5); Carbon Dioxide 23 mmol/L (22-29); Chloride 106 mmol/L (98-107); Globulin 2.5 g/dL (1.3-4.6); Glucose 270 mg/dL (65-115); Magnesium 1.8 mg/dL (1.7-2.3); Osmolality Calculated 298 mOsm/kg (285-295); Potassium 4.5 mmol/L (3.5-5.1); Sodium 138 mmol/L (136-145); Total Bilirubin 0.2 mg/dL (0.15-1.2); Total Protein 6.1 g/dL (6.6-8.7)
[2020-09-10] MEDS: azithromycin 500 MG in sodium chloride 0.9% 250 ML 250 MG IV (05:39)
[2020-09-10] MEDS: cefTRIAXone 1,000 MG in sodium chloride 0.9% (plus) 50 ML 100 MG IV (07:58)
[2020-09-10] MEDS: dexamethasone 4 mg/mL INJ 6 MG IVP (09:41)
[2020-09-10] MEDS: apixaban 5 mg Tablet PO ×2 (09:43→17:19)
[2020-09-10] MEDS: potassium chloride ER 20 mEq Tablet 10 MEQ PO ×3 (09:43→21:18)
[2020-09-10] MEDS: pantoprazole DR 40 mg Tablet PO (09:43)
[2020-09-10] MEDS: levothyroxine 150 mcg Tablet 75 MCG PO (09:44)
[2020-09-10] MEDS: hyDRALAzine 20 mg/mL INJ 1 mL 10 MG IVP (11:50)
--- NOTE | 2020-09-10 12:39 | P.PN_ITS ---
Subjective Subjective: Interval history: No respiratory distress. No fever, chils. Noted to be hypertensive. Medications: Reviewed: Yes Vitals/I&O/Wt Last Vital Signs Temp 98.2 F 09/10/20 04:00 Pulse 69 09/10/20 09:05 Resp 18 09/10/20 09:05 BP 173/85 09/10/20 04:39 Pulse Ox 96 09/10/20 09:05 09/09/20 09/10/20 09/10/20 22:59 06:59 14:59 Intake Total 1920 / 4280 300 / 4580 120 / 120 Output Total 700 / 2700 1300 / 4000 300 / 300 Balance 1220 / 1580 -1000 / 580 -180 / -180 Weight last 48 hrs Weight 111.13 kg Weight 111.13 kg Physical Exam Const: COMMON NORMALS: no acute distress, patient oriented x3 and alert HENMT: COMMON NORMALS: normocephalic and atraumatic HEAD & SCALP: normocephalic and atraumatic Eye: COMMON NORMALS: EOMs intact bilaterally, conjunctivae normal and no scleral icterus CONJUNCTIVA: Yes conjunctivae normal Neck/C-Spine: COMMON NORMALS: no lymphadenopathy and no meningeal signs Lymph: LYMPHATIC: no lymphadenopathy noted Chest: COMMONS NORMALS: normal palpation of entire chest wall Resp: COMMON NORMALS: No use of accessory muscles and clear to auscultation bilaterally AUSCULTATION: clear to auscultation bilaterally Cardio: COMMON NORMALS: regular rate, regular rhythm and No murmurs present (Cardio) RATE: regular rate RHYTHM: regular rhythm OTHER: No lower extremity edema GI: COMMON NORMALS: Soft to palpation and non-tender PALPATION: Yes Soft to palpation RECTAL EXAM: deferred : COMMON NORMALS: Yes no CVA tenderness BLADDER/KIDNEY EXAM: Yes no CVA tenderness Back/Pelvis: COMMON NORMALS: no CVA tenderness and thoracic and lumbar spine n ormal to inspection (She had very mild discomfort on palpation of thoracic paraspinal region) Extremity: COMMON NORMALS: normal to inspection and capillary refill normal Neuro: COMMON NORMALS: patient oriented x3 and no focal motor deficits SENSORIUM/ORIENTATION: Yes alert MENINGEAL SIGNS: Yes no meningeal signs Psych: COMMON NORMALS: mental status grossly normal, Normal thought process present and cooperative THOUGHT PROCESS: Normal thought process present Skin: COMMON NORMALS: no rashes or lesions noted GENERAL SKIN EXAM: no rashes or lesions noted Data : 09/10/20 03:30 09/10/20 03:30 Micro: Microbiology 09/09/20 07:24 Blood Culture - Preliminary Blood NEGATIVE TO DATE 09/09/20 22:00 Blood Culture - Preliminary Blood SPECIMEN COLLECTED A&P Assessment and plan (1) Pre-syncope: Likely related to dehydration and bradycardia Status: Acute (2) Sinus bradycardia: Appears to be related to medications and possibly COVID-19 infection Status: Acute (3) COVID-19 virus infection: Status: Acute (4) Community acquired pneumonia: Viral and/or bacterial. Status: Acute (5) Hypothyroidism: Status: Acute (6) Obesity (BMI 30.0-34.9): Status: Acute (7) Dehydration with hyponatremia: Status: Acute (8) Acute renal insufficiency: Status: Acute (9) Atypical chest pain: This is likely musculoskeletal secondary to cough. Does not meet criteria for non-ST elevation OR. Status: Acute Additional A&P Information PLAN: Continue to hold av-brian blocking agents Started on hydralazine 25 mg PO Q8hr Imdur 30 mg PO daily added Bp improving No fever, respiratory distress Will stop decadron - making patient anxious and hyperglycemic Follow up on echo D/w Cardiology Attestations Medical Necessity Statement*: will require continued hospitalization for management of bradycardia, hypertension and chest pain Time Spent in Patient Care: Greater than 35 minutes (>than 50% of time spent in counselling and/or direct pt care on unit) . Coding Level of Care Code Acute Armature [employer] for [facility] Fwd Diagnoses Pre-syncope R55 Sinus bradycardia R00.1 COVID-19 virus infection U07.1 Community acquired pneumonia J18.9 Hypothyroidism E03.9 Obesity (BMI 30.0-34.9) E66.9 Dehydration with hyponatremia E86.0; E87.1 Acute renal insufficiency N28.9 Atypical chest pain R07.89
[2020-09-10] MEDS: isosorbide mononitrate ER 30 mg Tablet PO (13:51)
[2020-09-10] MEDS: hyDRALAzine 25 mg Tablet PO ×2 (14:14→21:18)
[2020-09-10 15:12] LABS: Coronavirus Test Green County DETECTED
--- NOTE | 2020-09-10 18:09 | PC.NURSE ---
patient has been intermittently hypertensive this shift. Updated physician throughout the day of patients hypertension with orders received, noted, and implemented. Patient has not had any complaints of feelings of hypertension or headache. Patient did have infrequent one time episode of chest pain at 1315 of which patient was not symptomatic and denied any nausea or diaphoresis. Patient stated her pain was a 2 dull achy pain that was prominent with inspiration and located central chest radiating through to back. No changes noted on patients telemetry. Dr. Vang notified and orders for anginal medication to be administered. Patient was given IV Hydralzine for HTN of which patient stated she felt better. Dr. Vang updated throughout the day of patients BP. Continue to monitor.
[2020-09-10 21:03] LABS: Glucose Point of Care 374 mg/dL (70-110)
[2020-09-11] VITALS (60 sets, daily range): BP systolic 122–204; BP diastolic 60–122; PULSE 40–87; RESP 7–30; TEMP 36.6–36.9; O2SAT 93–99; BMI 34.2
[2020-09-11] MEDS: azithromycin 500 MG in sodium chloride 0.9% 250 ML 250 MG IV (06:21)
[2020-09-11 07:42] LABS: Glucose Point of Care 188 mg/dL (70-110)
[2020-09-11] MEDS: cefTRIAXone 1,000 MG in sodium chloride 0.9% (plus) 50 ML 100 MG IV (07:45)
[2020-09-11] MEDS: hyDRALAzine 25 mg Tablet PO ×3 (08:57→21:05)
[2020-09-11] MEDS: levothyroxine 150 mcg Tablet 75 MCG PO (08:57)
[2020-09-11] MEDS: pantoprazole DR 40 mg Tablet PO (08:58)
[2020-09-11] MEDS: isosorbide mononitrate ER 30 mg Tablet PO (08:58)
[2020-09-11] MEDS: apixaban 5 mg Tablet PO ×2 (08:58→17:28)
[2020-09-11] MEDS: potassium chloride ER 20 mEq Tablet 10 MEQ PO ×3 (08:58→21:04)
[2020-09-11 11:44] LABS: Glucose Point of Care 231 mg/dL (70-110)
[2020-09-11] MEDS: acetaminophen 325 mg Tablet 650 MG PO (12:37)
[2020-09-11 17:21] LABS: Glucose Point of Care 236 mg/dL (70-110)
[2020-09-11 17:21] LABS: Glucose Point of Care 373 mg/dL (70-110)
[2020-09-11 17:21] LABS: Glucose Point of Care 288 mg/dL (70-110)
[2020-09-11 17:24] LABS: Glucose Point of Care 174 mg/dL (70-110)
--- NOTE | 2020-09-11 17:30 | P.PN_ITS ---
Subjective Subjective: Interval history: patient denies any chest pain, shortness of breath, palpitation this, fever, nausea, vomiting overnight. Medications: Reviewed: Yes Vitals/I&O/Wt Last Vital Signs Temp 98 F 09/11/20 20:00 Pulse 57 L 09/11/20 21:55 Resp 16 09/11/20 20:00 BP 134/67 09/11/20 20:00 Pulse Ox 95 09/11/20 20:00 09/11/20 09/11/20 09/11/20 06:59 14:59 22:59 Intake Total 480 / 2266.25 1050 / 1050 300 / 1350 Output Total 1000 / 3850 900 / 900 250 / 1150 Balance -520 / -1583.75 150 / 150 50 / 200 Weight last 48 hrs Weight 111.13 kg Weight 111.13 kg Physical Exam Const: COMMON NORMALS: no acute distress, patient oriented x3 and alert HENMT: COMMON NORMALS: normocephalic and atraumatic HEAD & SCALP: normocephalic and atraumatic Eye: COMMON NORMALS: EOMs intact bilaterally, conjunctivae normal and no scleral icterus CONJUNCTIVA: Yes conjunctivae normal Neck/C-Spine: COMMON NORMALS: no lymphadenopathy and no meningeal signs Lymph: LYMPHATIC: no lymphadenopathy noted Chest: COMMONS NORMALS: normal palpation of entire chest wall Resp: COMMON NORMALS: No use of accessory muscles and clear to auscultation bilaterally AUSCULTATION: clear to auscultation bilaterally Cardio: COMMON NORMALS: regular rate, regular rhythm and No murmurs present (Cardio) RATE: regular rate RHYTHM: regular rhythm OTHER: No lower extremity edema GI: COMMON NORMALS: Soft to palpation and non-tender PALPATION: Yes Soft to palpation RECTAL EXAM: deferred : COMMON NORMALS: Yes no CVA tenderness BLADDER/KIDNEY EXAM: Yes no CVA tenderness Back/Pelvis: COMMON NORMALS: no CVA tenderness and thoracic and lumbar spine normal to inspection (She had very mild discomfort on palpation of thoracic paraspinal region) Extremity: COMMON NORMALS: normal to inspection and capillary refill normal Neuro: COMMON NORMALS: patient oriented x3 and no focal motor deficits SENSORIUM/ORIENTATION: Yes alert MENINGEAL SIGNS: Yes no meningeal signs Psych: COMMON NORMALS: mental status grossly normal, Normal thought process present and cooperative THOUGHT PROCESS: Normal thought process present Skin: COMMON NORMALS: no rashes or lesions noted GENERAL SKIN EXAM: no rashes or lesions noted Data : 09/10/20 03:30 09/10/20 03:30 Micro: Microbiology 09/09/20 22:00 Blood Culture - Preliminary Blood NEGATIVE TO DATE A&P Assessment and plan (1) Pre-syncope: Likely related to dehydration and bradycardia Status: Acute (2) Sinus bradycardia: Appears to be related to medications and possibly COVID-19 infection Status: Acute (3) COVID-19 virus infection: Status: Acute (4) Community acquired pneumonia: Viral and/or bacterial. Status: Acute (5) Hypothyroidism: Status: Acute (6) Obesity (BMI 30.0-34.9): Status: Acute (7) Dehydration with hyponatremia: Status: Acute (8) Acute renal insufficiency: Status: Acute (9) Atypical chest pain: This is likely musculoskeletal secondary to cough. Does not meet criteria for non-ST elevation [place]. Status: Acute Additional A&P Information PLAN: Continue to hold av-brian blocking agents Continue hydralazine 25 mg PO Q8hr Imdur 30 mg PO daily added No further chest pain- may consider stress test prior to discharge Bp improving , intermittent sinus sabina Follow up on echo Repeat cbc/cmp in am Attestations 2 Medical Necessity Statement*: will require continued hospitalization for management of bradycardia, hypertension, chest pain. Time Spent in Patient Care: Greater than 35 minutes (>than 50% of time spent in counselling and/or direct pt care on unit) . 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
[2020-09-11 20:43] LABS: Glucose Point of Care 224 mg/dL (70-110)
[2020-09-12] VITALS (12 sets, daily range): BP systolic 127–167; BP diastolic 75–92; PULSE 54–89; RESP 12–31; TEMP 36.8–36.9; O2SAT 91–97; BMI 34.2
[2020-09-12] MEDS: acetaminophen 325 mg Tablet 650 MG PO (02:58)
[2020-09-12] MEDS: azithromycin 500 MG in sodium chloride 0.9% 250 ML 250 MG IV (05:08)
[2020-09-12 07:29] LABS: Glucose Point of Care 144 mg/dL (70-110)
[2020-09-12] MEDS: cefTRIAXone 1,000 MG in sodium chloride 0.9% (plus) 50 ML 100 MG IV (07:41)
[2020-09-12] MEDS: apixaban 5 mg Tablet PO (08:51)
[2020-09-12] MEDS: levothyroxine 150 mcg Tablet 75 MCG PO (08:52)
[2020-09-12] MEDS: isosorbide mononitrate ER 30 mg Tablet PO (08:52)
[2020-09-12] MEDS: potassium chloride ER 20 mEq Tablet 10 MEQ PO (08:52)
[2020-09-12] MEDS: hyDRALAzine 25 mg Tablet PO (08:52)
[2020-09-12] MEDS: pantoprazole DR 40 mg Tablet PO (08:52)
[2020-09-12 11:29] LABS: Glucose Point of Care 152 mg/dL (70-110)
--- NOTE | 2020-09-12 11:32 | PC.NURSE ---
Patient ambulated approximately 300 feet this morning under her own power. Heart Rate got to 107 at its highest point. Patient had no issues and tolerated the walk just fine.
--- NOTE | 2020-09-12 16:33 | P.DS_ITS ---
Discharge Providers Date of Admission: 09/09/20 07:27 Date of Discharge: September 12, 2020 Attending Provider at Admission: Sarwat Low MD Attending Provider at Discharge: Deanna Vang Primary Care Provider: Zohra Leary NP Diagnoses at Discharge Discharge Diagnosis (1) Pre-syncope: Status: Acute (2) Sinus bradycardia: Status: Acute (3) COVID-19 virus infection: Status: Acute (4) Community acquired pneumonia: Status: Acute (5) Hypothyroidism: Status: Acute (6) Obesity (BMI 30.0-34.9): Status: Acute (7) Dehydration with hyponatremia: Status: Resolved (8) Acute renal insufficiency: Status: Resolved (9) Atypical chest pain: Status: Resolved Reason for Visit Reason for Visit: SOB Hospital Course Hospital Course 50 year old female presents to emergency department after she nearly passed out. Reports that for the last 3 days she has been more tired and having dry cough and some dyspnea on exertion. She has been working Thursday night and reports that she was sleeping whole day Thursday. She was not eating much yesterday. Reports some left precordial 2 out of 10 nonradiating pressure-like discomfort w ithout associated nausea, diaphoresis or shortness of breath at rest. Denies any alleviating or aggravating factors. She follows with Dr. Chapman for atrial fibrillation and denies previous history of coronary artery disease. She is on metoprolol and diltiazem for long period of time and never had issues until today when she was found to have bradycardia with heart rate in the 50s. Reports her baseline heart rate is in the 80s. In ER she was tested positive for COVID-19 and had evidence of pneumonia on chest x-ray involving left perihilar region. She is anticoagulated with Eliquis and was saturating 96% on room air in ER. Her troponin was slightly elevated likely due to kidney disease and showed no concerning delta. EKG showed sinus bradycardia with no specific ST-T changes. Reports that she frequently gets lower extremity swelling if she is driving car or on her feet for prolonged period of time. Upon admission to the hospital patients bradycardia improved. Was not renewed on AV brian blocking drugs. Was noted to be hypertensive however and thus was started on hydralazing 25 mg PO Q8hr in addition to Imdur 30 mg po daily after which her BP improved. ECHO was performed which showed pEF. D/w patient that she may likely need to resume low dose b-megha due to p. atrial fibrillation. Advised to monitor at home and d/w Cardiology on follow up visit. In addition she was initially started on decadron however her dyspnea with exertion was unlikely due to COVID -19. This was leading patient to feel anxious and exacerbate her hyperglycemia and thus was stopped. Could not entirely rule out underlying bacterial component and thus was started on Ceftriaxone and azithromycin. This was transitioned to PO ceftin at the time of discharge. Was not hypoxic and did not require supplemental o2. Did not qualify for o2 on day of discharge. Physical Exam Const: COMMON NORMALS: no acute distress, patient oriented x3 and alert HENMT: COMMON NORMALS: normocephalic and atraumatic HEAD & SCALP: normocephalic and atraumatic Eye: COMMON NORMALS: EOMs intact bilaterally, conjunctivae normal and no scleral icterus CONJUNCTIVA: Yes conjunctivae normal Neck/C-Spine: COMMON NORMALS: no lymphadenopathy and no meningeal signs Lymph: LYMPHATIC: no lymphadenopathy noted Chest: COMMONS NORMALS: normal palpation of entire chest wall Resp: COMMON NORMALS: No use of accessory muscles and clear to auscultation bilaterally AUSCULTATION: clear to auscultation bilaterally Cardio: COMMON NORMALS: regular rate, regular rhythm and No murmurs present (Cardio) RATE: regular rate RHYTHM: regular rhythm OTHER: No lower extremity edema GI: COMMON NORMALS: Soft to palpation and non-tender PALPATION: Yes Soft to palpation RECTAL EXAM: deferred : COMMON NORMALS: Yes no CVA tenderness BLADDER/KIDNEY EXAM: Yes no CVA tenderness Back/Pelvis: COMMON NORMALS: no CVA tenderness and thoracic and lumbar spine normal to inspection (She had very mild discomfort on palpation of thoracic paraspinal region) Extremity: COMMON NORMALS: normal to inspection and capillary refill normal Neuro: COMMON NORMALS: patient oriented x3 and no focal motor deficits SENSORIUM/ORIENTATION: Yes alert MENINGEAL SIGNS: Yes no meningeal signs Psych: COMMON NORMALS: mental status grossly normal, Normal thought process present and cooperative THOUGHT PROCESS: Normal thought process present Skin: COMMON NORMALS: no rashes or lesions noted GENERAL SKIN EXAM: no rashes or lesions noted Discharge Data Data Completed and Pending: Completed Studies During Hospitalization Category Date Time Status XR chest 1V luis daniel ble [id number] Stat Exams 09/09/20 04:07 Completed CV echo complete* [id number] Routine Ultrasound 09/09/20 10:00 Completed Vitals: Last Vital Signs Temp 98.4 F 09/12/20 11:33 Pulse 55 L 09/12/20 11:33 Resp 14 09/12/20 11:33 BP 160/85 09/12/20 11:33 Pulse Ox 97 09/12/20 11:33 Discharge Plan Discharge Patient Disposition: Home Condition: Stable Prescriptions: New zonisamide 100 mg Capsule 400 mg PO DAILY Qty: 30 RF: 0 isosorbide mononitrate 30 mg Tablet Extended Release 24 Hr 30 mg PO DAILY Qty: 30 RF: 0 hydralazine 25 mg Tablet 25 mg PO TID Qty: 90 RF: 0 cefuroxime axetil 500 mg tablet 500 mg PO BID 5 Days Qty: 10 RF: 0 Continued levothyroxine 75 mcg capsule 75 mcg PO DAILY@0800 RF: 0 cetirizine 10 mg capsule 10 mg PO DAILY@0800 RF: 0 cyclobenzaprine 10 mg tablet 10 mg PO TID PRN (Reason: Muscle Spasm) RF: 0 omeprazole 20 mg capsule,delayed release(DR/EC) 20 mg PO DAILY@0800 RF: 0 acetaminophen [Tylenol Extra Strength] 500 mg Tablet 500 - 1,000 mg PO PRN RF: 0 potassium citrate 10 mEq (1,080 mg) tablet extended release 10 meq PO TID@08,, RF: 0 cholecalciferol (vitamin D3) [Vitamin D3] 50 mcg (2,000 unit) Tablet 50 mcg PO DAILY@0800 RF: 0 pregabalin 50 mg capsule 50 mg PO BID@0800,1999 RF: 0 Probiotic 1 tab PO DAILY@0800 RF: 0 cranberry 1 tab PO DAILY@0800 RF: 0 Eliquis 5 mg tablet 5 mg PO BID@0800,2100 RF: 0 Discontinued diltiazem HCl [Cardizem] 120 mg tablet 60 mg PO BID@0800,2100 RF: 0 metoprolol tartrate 50 mg tablet 50 mg PO Q12H RF: 0 Discharge Orders: Discharge Order (Routine); Ordered 09/12/20 Ordered By: Deanna Vang Referrals: Zohra Leary NP [Primary Care Provider] - 1 week Rosa Isela Chapman MD [Physician] - 1-3 days (For management of atrial fibrillation, possible arrangement of stress test) Discharge Diet: Diabetic Discharge Activity: Increase activity as tolerated Activity Restrictions/Additional Instructions: Monitor blood pressure and heart rate at home. Call cardiology office or return to emergency room have blood pressure persistently above 180 or heart rate decreasing below 50. Also monitor for any chest pain fever or respiratory distress. Discharge Attestations Time Spent in Discharge Care*: greater than 30 min Specific Discharge Activities: educating patient, discussing with pcp/other providers, discussing with rn case manager hospice/social workers/dc planners, documenting/other paperwork and evaluating patient/reviewing data Status at Discharge: Cognitive status at discharge: cognitively intact , Behavioral status at discharge: cooperative , Functional status at discharge: independent ambulation Overall status at discharge: patient is back to baseline Quality Metrics Clinical Quality Measures During this hospital stay, did patient experience: None Coding Level 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
== END 2020-09-12 12:27 | disposition home or self-care (01) ==
LOC: ER 03:58 → ICU 09:04
PROVIDERS: Admitting Provider Internal Medicine; Emergency Provider Emergency Medicine; PCP Nurse Practitioner Family; Visit Provider Hospitalist
DX: U07.1 COVID-19 (principal); R55 Syncope and collapse; R00.1 Bradycardia, unspecified; J18.9 Pneumonia, unspecified organism; E03.9 Hypothyroidism, unspecified; E66.9 Obesity, unspecified; Z68.34 Body mass index [BMI] 34.0-34.9, adult; I48.91 Unspecified atrial fibrillation; I10 Essential (primary) hypertension; E78.5 Hyperlipidemia, unspecified; E11.9 Type 2 diabetes mellitus without complications; N28.9 Disorder of kidney and ureter, unspecified; E87.1 Hypo-osmolality and hyponatremia; E86.0 Dehydration
CPT/HCPCS: 12345; 36415; 36416; 71045; 80053; 81003; 82550; 82962; 83605; 83735; 83880; 84100; 84484; 85025; 85610; 85730; 87040; 87426; 87635; 93005; 93306; 96365; 96366; 96367; 96372; 96375; 99283; 99285; G0378; J0360; J0456; J0696; J1100; J1815; J7030; J7050

== ENCOUNTER → 2021-12-23 11:18 | Outpatient (BNVA) | payer MEDICAID, SELFPAY | PROVIDERS: PCP Family Medicine; Visit Provider Family Medicine | DX: I10 Essential (primary) hypertension (principal); E03.9 Hypothyroidism, unspecified; E11.65 Type 2 diabetes mellitus with hyperglycemia; E08.40 Diabetes mellitus due to underlying condition with diabetic neuropathy, unspecified; M10.9 Gout, unspecified; N20.0 Calculus of kidney | CPT/HCPCS: 80053; 80061; 83036; 84439; 84443; 85025 ==

== ENCOUNTER 2022-04-17 01:56 | Observation (INO) | payer MEDICAID, SELFPAY ==
[2022-04-17] VITALS (17 sets, daily range): BP systolic 97–181; BP diastolic 54–127; PULSE 53–128; RESP 15–23; TEMP 36.6–36.9; O2SAT 95–98; BMI 36.2
--- NOTE | 2022-04-17 02:04 | XRR_ITS ---
PROCEDURE INFORMATION: Exam: XR Chest Exam date and time: 04/17/2022 2:16 AM Age: 52 years old Clinical indication: Chest pressure; Prior surgery; Surgery type: Gb; Patient HX: C/O chest pain. History of afib. ; Additional info: Cp TECHNIQUE: Imaging protocol: Radiologic exam of the chest. Views: 1 view. COMPARISON: CR XR chest 1V portable [id number] 09/09/2020 5:02 AM FINDINGS: Lungs: No focal airspace disease. Pleural spaces: Unremarkable. No pleural effusion. No pneumothorax. Heart/Mediastinum: Cardiomediastinal silhouette is within normal limits. Bones/joints: Unremarkable. XR/XR chest 1V portable [id number] IMPRESSION: No acute cardiopulmonary abnormality.
--- NOTE | 2022-04-17 02:04 | ECG_ITS ---
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 Measurements Intervals [place] Rate: 115 P: ND: QRS: 28 QRSD: 79 T: 32 QT: 317 QTc: 439 Interpretive Statements ATRIAL FIBRILLATION WITH RAPID VENTRICULAR RESPONSE MODERATE ST DEPRESSION [0.05+ mV ST DEPRESSION] Compared to ECG 09/09/2020 06:14:40 ST (T wave) deviation now present Sinus bradycardia no longer present Electronically Signed On 04-17-2022 21:28:07 CDT by Last Fulton M.D. [id number]
--- NOTE | 2022-04-17 02:05 | ED_ITS ---
HPI - Chest Pain General: Chief Complaint: Chest Pain Stated Complaint: cp,irregular hr Time Seen by Provider: 04/17/22 02:00 Source: patient Mode of arrival: ambulatory Limitations: no limitations History of Present Illness: 52-year-old female states that she has a history of A. fib she states she has not been taking her meds she states that tonight she started having chest pain as a sharp type chest pain along with increased rate her heart rate here is in the 150s currently. She denies any worsening proving factors denies any shortness of breath denies any cough or fever. Associated symptoms: Reports palpitations; Deny abdominal pain, dyspnea, fever(s), nausea or vomiting Review of Systems Const: Denies: fever(s), chills, body aches or change in appetite Eyes: Denies: blurry vision or eye discomfort ENMT: Denies: throat pain or dental pain Card: Reports: chest pain, palpitations and irregular heart rhythm Resp: Denies: dyspnea GI: Denies: abdominal pain, nausea, vomiting or diarrhea : Denies: dysuria Musc: Denies: neck pain or back pain Skin/Breast: Denies: rash Neuro: Denies: headache(s) Psych: Denies: depression Christopher/Lymph: Denies: easy bruising All/Imm: Denies: urticaria PFSH ED PFSH: Medical History Adult hypothyroidism Afib Atrial fibrillation Controlled type 2 diabetes mellitus with hyperglycemia, without long-term current use of insulin Gout, unspecified HTN (hypertension) Hyperlipidemia Hypothyroidism Obesity (BMI 30.0-34.9) Renal calculi Type 2 diabetes mellitus Surgical History H/O cystoscopy 2014 History of cholecystectomy History of colonoscopy Endoscopy 2016 History of hysterectomy Family History Mother Thyroid condition Father Heart disease Other CAD (coronary artery disease) Cancer Diabetes Gout, unspecified Hypertension Stroke Social History Smoking and tobacco status: never smoked Smoking risk assessment/counseling performed?: No Alcohol intake: never Desire information about alcohol rehabilitation?: No Counseling given: No Desire information about substance/drug rehabilitation?: No Counseling given: No Caregiver/support person: No Lives independently: Yes Household members: spouse Marital status: Number of children: 1 Current occupational status: disabled History of recent travel: No Female Reproductive History: Date of last menstrual period: 08/21/99 Physical Exam Const: COMMON NORMALS: patient oriented x3 HENMT: COMMON NORMALS: normocephalic and atraumatic HEAD & SCALP: normocephalic and atraumatic Eye: COMMON NORMALS: Equal, round and reactive pupils present and EOMs intact bilaterally PUPIL: Yes Equal, round and reactive pupils present Neck/C-Spine: COMMON NORMALS: full ROM and supple Chest: COMMONS NORMALS: normal inspection of the chest and normal palpation of entire chest wall Resp: COMMON NORMALS: normal respiratory effort, No retractions, No use of accessory muscles and clear to auscultation bilaterally AUSCULTATION: clear to auscultation bilaterally Cardio: COMMON NORMALS: No murmurs present (Cardio) RATE: tachycardic RHYTHM: abnormal rhythm irregularly irregular GI: COMMON NORMALS: Normal to inspection, nondistended, normoactive bowel sounds present, Soft to palpation, non-tender and no masses PALPATION: Yes Soft to palpation Extremity: COMMON NORMALS: normal to inspection and full ROM Neuro: COMMON NORMALS: patient oriented x3, moves all extremities and no focal motor deficits Psych: COMMON NORMALS: mental status grossly normal, Normal thought process present and cooperative THOUGHT PROCESS: Normal thought process present Skin: COMMON NORMALS: no rashes or lesions noted and no wounds GENERAL SKIN EXAM: no rashes or lesions noted Course Vital Signs: Vital signs: Vital Signs Pulse Rate 91 04/17/22 03:01 Respiratory Rate 23 H 04/17/22 03:01 Blood Pressure 103/83 04/17/22 03:01 Pulse Oximetry 95 04/17/22 03:01 Oxygen Delivery Me thod 04/17/22 02:09 MDM - Chest Pain Medical Decision Making Patient presents here with chest pain and was found to be in A. fib with RVR her initial troponin here is negative patient had to be started on a Cardizem drip for rate control spoke to hospitalist will admit to cardiac stepdown she been stable while here. Lab Data : 04/17/22 02:12 04/17/22 02:12 Laboratory Results WBC 10.0 10^3/uL (4.0-10.0) 04/17/22 02:12 RBC 4.75 10^6/uL (4.1-5.3) 04/17/22 02:12 Hgb 13.9 g/dL (11.5-15.3) 04/17/22 02:12 Hct 43.2 % (37.0-47.0) 04/17/22 02:12 MCV 90.9 fl (81-99) 04/17/22 02:12 MCH 29.3 pg (28.0-34.0) 04/17/22 02:12 MCHC 32.2 g/dL (30.0-36.0) 04/17/22 02:12 RDW 13.9 % (12.1-15.1) 04/17/22 02:12 Plt Count 222 10^3/cmm (130-400) 04/17/22 02:12 MPV 10.4 fL (7.4-10.4) 04/17/22 02:12 Neut % (Auto) 53.8 % 04/17/22 02:12 Lymph % (Auto) 35.4 % 04/17/22 02:12 [place] % (Auto) 5.9 % 04/17/22 02:12 Eos % (Auto) 3.8 % 04/17/22 02:12 Baso % (Auto) 0.8 % 04/17/22 02:12 Neut # (Auto) 5.41 10^3/uL (1.8-7.7) 04/17/22 02:12 Lymph # (Auto) 3.6 10^3/uL (0.8-4.8) 04/17/22 02:12 [place] # (Auto) 0.6 10^3/uL (0.2-0.9) 04/17/22 02:12 Eos # (Auto) 0.4 10^3/uL (0.0-0.8) 04/17/22 02:12 Baso # (Auto) 0.1 10^3/uL (0.0-0.1) 04/17/22 02:12 Nucleated RBC % (auto) 0 % 04/17/22 02:12 Nucleated RBCs # 0.0 /100WBC 04/17/22 02:12 PT 13.90 SECONDS (12.1-14.9) 04/17/22 02:12 INR 1.04 (0.8-1.2) 04/17/22 02:12 Sodium 142 mmol/L (136-145) 04/17/22 02:12 Potassium 3.7 mmol/L (3.5-5.1) 04/17/22 02:12 Chloride 107 mmol/L (98-107) 04/17/22 02:12 Carbon Dioxide 22 mmol/L (22-29) 04/17/22 02:12 Anion Gap 16.7 (5-19) 04/17/22 02:12 BUN 26 mg/dL (6-20) H 04/17/22 02:12 Creatinine 1.7 mg/dL (0.5-0.9) H 04/17/22 02:12 GFR Calculation 31.4 mL/min (90-130) L 04/17/22 02:12 Glucose 175 mg/dL (65-115) H 04/17/22 02:12 Calculated Osmolality 303 mOsm/kg (285-295) H 04/17/22 02:12 Calcium 9.4 mg/dL (8.5-10.5) 04/17/22 02:12 Total Bilirubin 0.3 mg/dL (0.15-1.2) 04/17/22 02:12 AST 68 U/L (0-32) H 04/17/22 02:12 ALT 56 U/L (0-33) H 04/17/22 02:12 Alkaline Phosphatase 110 IU/L (35-105) H 04/17/22 02:12 Troponin T Baseline 14 ng/L (0-10) H 04/17/22 02:12 NT-Pro-B Natriuret Pep 74 pg/mL (0-125) 04/17/22 02:12 Total Protein 6.6 g/dL (6.6-8.7) 04/17/22 02:12 Albumin 4.1 g/dL (3.5-5.2) 04/17/22 02:12 Globulin 2.5 g/dL (1.3-4.6) 04/17/22 02:12 EKG Data EKG 1: I personally reviewed and interpreted this EKG as follows: EKG interpretation date: 04/17/22 EKG interpretation time: 02:04 Interpretation: afib with rvr hr [address] or t wave abnormalities qrs 79 qtc 385 Critical Care Time Critical Care Time: Critical Care Time: Yes Total Critical Care Time: 35 Attestation: The high probability of a clinically significant, sudden or life threatening deterioration of the patient's cv system(s) required my full and direct attention, intervention and personal management. The critical care time is as shown. 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
[2022-04-17 02:17] LABS: Basophils # 0.1 10^3/uL (0.0-0.1); Basophils % 0.8 %; Eosinophils # 0.4 10^3/uL (0.0-0.8); Eosinophils % 3.8 %; Hematocrit 43.2 % (37.0-47.0); Hemoglobin 13.9 g/dL (11.5-15.3); Lymphocytes # 3.6 10^3/uL (0.8-4.8); Lymphocytes % 35.4 %; Mean Corpuscular HGB Conc 32.2 g/dL (30.0-36.0); Mean Corpuscular Hemoglobin 29.3 pg (28.0-34.0); Mean Corpuscular Volume 90.9 fl (81-99); Mean Platelet Volume 10.4 fL (7.4-10.4); Monocytes # 0.6 10^3/uL (0.2-0.9); Monocytes % 5.9 %; Neutrophils # 5.41 10^3/uL (1.8-7.7); Neutrophils % 53.8 %; Nucleated Red Blood Cells % 0 %; Platelet Count 222 10^3/cmm (130-400); Red Blood Count 4.75 10^6/uL (4.1-5.3); Red Cell Distribution Width 13.9 % (12.1-15.1)
[2022-04-17] MEDS: dilTIAZem 5 mg/mL SDV 5 mL 20 MG IVP (02:27)
[2022-04-17 02:40] LABS: INR 1.04 (0.8-1.2)
[2022-04-17] MEDS: sodium chloride 0.9% 500 ML 999 ML IV (02:43)
[2022-04-17 02:51] LABS: Alanine Aminotransferase 56 U/L (0-33); Albumin Level 4.1 g/dL (3.5-5.2); Alkaline Phosphatase 110 IU/L (35-105); Aspartate Amino Transferase 68 U/L (0-32); Blood Urea Nitrogen 26 mg/dL (6-20); Calcium 9.4 mg/dL (8.5-10.5); Carbon Dioxide 22 mmol/L (22-29); Chloride 107 mmol/L (98-107); Globulin 2.5 g/dL (1.3-4.6); Glomerular Filtration Rate 31.4 mL/min (90-130); Glucose 175 mg/dL (65-115); Osmolality Calculated 303 mOsm/kg (285-295); Sodium 142 mmol/L (136-145); Total Bilirubin 0.3 mg/dL (0.15-1.2); Total Protein 6.6 g/dL (6.6-8.7); Troponin(5th) Baseline 14 ng/L (0-10)
[2022-04-17 02:56] LABS: Anion Gap 16.7 (5-19); Potassium 3.7 mmol/L (3.5-5.1)
[2022-04-17 03:01] LABS: NT Pro B Type Natriuretic Pept 74 pg/mL (0-125)
--- NOTE | 2022-04-17 04:04 | ECG_ITS ---
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 Measurements Intervals [place] Rate: 97 P: LA: QRS: 22 QRSD: 88 T: 29 QT: 346 QTc: 441 Interpretive Statements ATRIAL FIBRILLATION ABNORMAL RHYTHM ECG Compared to ECG 09/09/2020 06:14:40 Sinus bradycardia no longer present Electronically Signed On 04-17-2022 21:35:29 CDT by Last Fulton M.D. [id number]
[2022-04-17 04:24] LABS: Troponin 5 2HR 16.42 ng/L (0-10)
[2022-04-17 04:28] LABS: Troponin 5 2HR Delta 2.42 ABS# (0-10)
--- NOTE | 2022-04-17 06:24 | P.HP_ITS ---
Providers/Chief Complaint Admitting Physician: Yuliana Danielle MD Primary Care Provider: Tc Camacho DO Chief Complaint: cp,irregular hr History of Present Illness Nyasia Elkins is a 52 year old female with a past medical history of atrial fibrillation, hypothyroidism, hypertension, who has been off medications since she was unable to afford them. She presents today with complaints of palpitations and chest pain that started last night. Upon presentation to the ER she was found to be in A. fib with RVR with heart rate in the 150s. She received Cardizem push and was thereafter started on a drip. Reports that chest pain is improved since heart rate has been better controlled. Currently she is A. fib with heart rate at 97/min. Denies any recent dyspnea palpitations syncope. Review of Systems General: Reports: 10 or more systems reviewed and unremarkable except in HPI and below Const: Denies: fever(s), chills or body aches Eyes: Denies: change in vision, blurry vision or photophobia ENMT: Reports: hoarseness; Denies: throat pain, enlarged tonsils, odynophagia or nasal congestion Card: Denies: chest pain, palpitations, irregular heart rhythm, edema, swell ing of feet/ankles, lightheadedness, pre-syncope, dyspnea on exertion or orthopnea Resp: Denies: dyspnea, productive cough, non-productive cough, wheezing, stridor, pain on inspiration, change in phlegm color, hemoptysis or chest congestion GI: Denies: abdominal pain, nausea, vomiting, hematemesis, coffee ground emesis, dysphagia, heartburn, diarrhea, constipation, GI cramping, change in stool character, hematochezia or melena : Denies: flank pain, difficulty voiding, dysuria, urinary frequency, urinary urgency, urinary hesitancy or hematuria Musc: Denies: neck pain, back pain, extremity pain, joint swelling, joint warmth or deformity Neuro: Denies: headache(s), numbness in extremities, weakness in extremities, sensory changes, difficulty walking, frequent falls, dizziness, vertigo, behavioral changes, Slurred speech present or seizure-like activity Psych: Denies: anxiety, depression, suicidal ideation or homicidal ideation Endo: Denies: polyuria, polydipsia, tired all the time, cold intolerance or hot flashes Christopher/Lymph: Denies: easy bruising or easy bleeding Medications/Allergies Home Medications Medication Instructions Recorded Confirmed Last Taken Type levothyroxine 75 mcg tablet 75 mcg PO DAILY #90 tabs 12/23/21 01/20/22 Unknown Rx lisinopril 40 mg tablet 40 mg PO DAILY #90 tabs 12/23/21 01/20/22 Unknown Rx potassium citrate 10 mEq (1,080 10 meq PO TID #90 tabs 12/23/21 01/20/22 Unknown Rx mg) tablet,extended release pregabalin 50 mg capsule (Lyrica) 50 mg PO BID #60 caps 12/23/21 01/20/22 Unknown Rx glipizide 10 mg tablet 10 mg PO BID #60 tabs 01/20/22 01/20/22 Unknown Rx aspirin 81 mg capsule 81 mg PO DAILY 04/17/22 04/17/22 Unknown History loratadine 10 mg tablet 10 mg PO DAILY 04/17/22 04/17/22 Unknown History magnesium 200 mg tablet 400 mg PO DAILY 04/17/22 04/17/22 Unknown History Allergies Allergy/AdvReac Type Severity Reaction Status Date / Time iodine Allergy Unknown Unknown Verified 01/20/22 14:09 tizanidine Allergy Unknown Unknown Verified 01/20/22 14:09 fluoxetine [From Prozac] Allergy rash Verified 01/20/22 14:09 povidone-iodine Allergy rash Verified 01/20/22 14:09 [From Betadine] soap [From Betadine] Allergy rash Verified 01/20/22 14:09 PFSH Acute PFSH: Medical History Adult hypothyroidism Afib Atrial fibrillation Controlled type 2 diabetes mellitus with hyperglycemia, without long-term current use of insulin Gout, unspecified HTN (hypertension) Hyperlipidemia Hypothyroidism Obesity (BMI 30.0-34.9) Renal calculi Type 2 diabetes mellitus Surgical History H/O cystoscopy 2014 History of cholecystectomy History of colonoscopy Endoscopy 2016 History of hysterectomy Family History Mother Thyroid condition Father Heart disease Other CAD (coronary artery disease) Cancer Diabetes Gout, unspecified Hypertension Stroke Social History Smoking and tobacco status: never smoked Smoking risk assessment/counseling performed?: No Alcohol intake: never Desire information about alcohol rehabilitation?: No Counseling given: No Desire information about substance/drug rehabilitation?: No Counseling given: No Caregiver/support person: No Lives independently: Yes Household members: spouse Marital status: Number of children: 1 Current occupational status: disabled History of recent travel: No Female Reproductive History: Date of last menstrual period: 08/21/99 Vitals/I&O/Wt Last Vital Signs Pulse 87 04/17/22 05:34 Resp 20 H 04/17/22 04:23 BP 97/70 04/17/22 04:23 Pulse Ox 97 04/17/22 05:34 O2 Del Method 04/17/22 05:34 04/16/22 04/16/22 04/17/22 14:59 22:59 06:59 Intake Total 550 / 550 Balance 550 / 550 Weight last 48 hrs Weight 117.934 kg Physical Exam Narrative: General: No acute distress, AO x3 HEENT: PERRLA, pupils bilaterally equal and reactive, pallors not present Chest: Normal vesicular breath sounds, no added sounds, equal good air entry bilaterally CVS: S1-S2 regular, no murmurs, no tachycardia, no gallops, no rubs Abdomen: Soft, nontender, no organomegaly, bowel sounds present Neuro: No focal deficits, no facial deformity, AO x3, power 5/5 in all limbs Data : 04/17/22 02:12 04/17/22 02:12 A&P Assessment and plan (1) Atrial fibrillation with RVR: Presenting today with A. fib with RVR with heart rate 150bpm currently on a Cardizem infusion which we will continue, at the time of assessment heart rate is at 97/min, irregular. Patient has previously been noted to have paroxysmal A. fib for which she was on metoprolol 25 twice daily however patient has not recently been taking these medications. Also previously on anticoagulation but is not currently taking it. Will resume metoprolol 25 mg p.o. twice daily today. Monitor closely on telemetry, patient does have a past history of sinus bradycardia with heart rate going down to 50s. hours echo from 08/2020 with normal left ventricular size and systolic function. LVEF at 72%. Status: Acute Plan This documentation was created by Sojern automatic pinsetter adjuster software. Every effort was made to ensure accuracy of automatic pinsetter adjuster. Any obvious errors or omissions should be clarified with the author of the document. Attestations Medical Necessity Statement*: Anticipate less than 2 midnight admission for management of A. fib with RVR Coding Level of Care Code Acute Solvent Plant Operator for Chg Fwd Diagnoses Atrial fibrillation with RVR I48.91
[2022-04-17 06:37] LABS: Glucose Point of Care 171 mg/dL (70-110)
--- NOTE | 2022-04-17 07:33 | PC.NURSE ---
Pt converted to sinus rhythm. Cardizem drip stopped at 0615. Dr. Danielle notified.
--- NOTE | 2022-04-17 08:04 | ECG_ITS ---
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 Measurements Intervals [place] Rate: 51 P: 31 SC: 167 QRS: 42 QRSD: 85 T: 46 QT: 446 QTc: 413 Interpretive Statements SINUS BRADYCARDIA Compared to ECG 04/17/2022 03:58:03 Atrial fibrillation no longer present Electronically Signed On 04-17-2022 21:36:15 CDT by Last Fulton M.D. [email or web address] flower [email or web address] [email or web address]/store/[id number]
[2022-04-17] MEDS: insulin lispro 100 unit/1 mL SUBCUT ×4 (08:16→21:18)
[2022-04-17 09:16] LABS: Troponin 5 6HR 16.04 ng/L (0-10)
[2022-04-17 09:44] LABS: Troponin 5 6HR Delta 2.04 ng/L (0-12)
[2022-04-17] MEDS: pantoprazole DR 40 mg Tablet PO (09:57)
[2022-04-17] MEDS: pregabalin 50 mg Capsule PO (09:57)
[2022-04-17] MEDS: levothyroxine 75 mcg Tablet PO (09:57)
[2022-04-17] MEDS: apixaban 5 mg Tablet PO ×2 (09:57→20:34)
--- NOTE | 2022-04-17 10:59 | US_ITS ---
WS: [id number] RENAL ULTRASOUND HISTORY: divya COMPARISON: None available. TECHNIQUE: 2-D and color Doppler imaging of the kidney submitted. Right kidney: 8.8 cm x 4.0 cm x 5.5 cm. Normal echogenicity with no hydronephrosis or mass. Left kidney: 9.1 cm x 4.0 cm x 4.7 cm. Normal echogenicity with no hydronephrosis or mass. Aorta: Normal. Urinary Bladder: Normal distention. US/US renal BI* [id number] IMPRESSION: Normal renal ultrasound.
[2022-04-17 11:34] LABS: Glucose Point of Care 147 mg/dL (70-110)
[2022-04-17] MEDS: sodium chloride 0.9% 1,000 ML 75 ML IV (11:40)
[2022-04-17 12:19] LABS: Iron 49 ug/dL (37-145); Percent Saturation 18.9 % (20-50); Thyroid Stimulating Hormone 3.32 uIU/mL (0.27-4.20); Total Iron Binding Capacity 258 mcg/dl; Unsaturated Iron Binding 209 ug/dL (112-347); Vitamin B12 583 pg/mL (232-1245)
[2022-04-17 12:21] LABS: Folate Level 16.8 ng/mL (4.8-37.3)
--- NOTE | 2022-04-17 15:46 | PM.MISC ---
Miscellaneous Note Purpose of Documentation: Cross coverage note Note: Patient reevaluated in the morning today. Laying comfortably in bed. Back in normal sinus rhythm. Having heart rate running in high 50s to low 60s. Remains asymptomatic. Denies any nausea, vomiting, headache. States she is feeling sleepy as she did not sleep well last night. Does complain of feeling sleepy during the day and nighttime at home as well. Has never had a sleep study. Plan: IV fluid with normal saline 75 cc/h. Check urine lites, urine creatinine, urinalysis, urine eosinophils. Renal ultrasound. Strict input output charting, daily weights. Check iron panel, lipid panel, A1c. Patient would benefit with sleep study as an outpatient. Given EDELMIRA will decrease dose of Lyrica to 25 mg twice daily. Started on Eliquis 5 mg twice daily. We will confirm with patient regarding anticoagulation. Nyasia Elkins is being changed to inpatient status as stay will now exceed 2 midnights. Ongoing hospital care is necessary for acute kidney injury most likely secondary dehydration
[2022-04-17 16:23] LABS: Glucose Point of Care 190 mg/dL (70-110)
[2022-04-17 17:42] LABS: Add Urine Microscopic? NO; Charge for UA Resulting for Rev
[2022-04-17 17:54] LABS: Bilirubin Urine Neg (Negative); Blood Urine Neg (Negative); Glucose Urine UA Norm (Normal); Ketones Urine Negative (Negative); Leukocyte Esterase Urine Negative (Negative); Nitrate Urine Negative (Negative); Protein Urine Neg (Negative); Urine Appearance Clear (CLEAR); Urine Color Yellow (Yellow); Urobilinogen Urine Norm (Negative); pH Urine 5 (5-7)
[2022-04-17 18:18] LABS: Potassium, Radom Urine 42 mmol/L; Urine Random Chloride 76 mmol/L; Urine Random Sodium 100 mmol/L
[2022-04-17 18:57] LABS: Blood Urea Nitrogen 25 mg/dL (6-20); Calcium 8.6 mg/dL (8.5-10.5); Carbon Dioxide 23 mmol/L (22-29); Chloride 106 mmol/L (98-107); Glucose 156 mg/dL (65-115); Osmolality Calculated 298 mOsm/kg (285-295); Sodium 140 mmol/L (136-145)
[2022-04-17 18:58] LABS: Anion Gap 15.1 (5-19); Potassium 4.1 mmol/L (3.5-5.1)
[2022-04-17] MEDS: pregabalin 25 mg Capsule PO (19:17)
--- NOTE | 2022-04-17 20:01 | PC.NURSE ---
i reported low pulse 59 to nurse
[2022-04-17 20:26] LABS: Glucose Point of Care 204 mg/dL (70-110)
[2022-04-18] VITALS (8 sets, daily range): BP systolic 116–154; BP diastolic 72–85; PULSE 47–67; RESP 17–25; TEMP 36.6–36.8; O2SAT 96–99
[2022-04-18] MEDS: sodium chloride 0.9% 1,000 ML 75 ML IV (00:24)
[2022-04-18 00:48] LABS: Urine Creatinine 190 mg/dL (28-217)
--- NOTE | 2022-04-18 04:16 | PC.NURSE ---
i reported low pulse 47 to nurse
[2022-04-18 06:00] LABS: Basophils # 0.1 10^3/uL (0.0-0.1); Basophils % 0.7 %; Eosinophils # 0.4 10^3/uL (0.0-0.8); Eosinophils % 5.9 %; Hematocrit 33.3 % (37.0-47.0); Hemoglobin 11.1 g/dL (11.5-15.3); Lymphocytes # 2.8 10^3/uL (0.8-4.8); Lymphocytes % 40.1 %; Mean Corpuscular HGB Conc 33.3 g/dL (30.0-36.0); Mean Corpuscular Hemoglobin 29.5 pg (28.0-34.0); Mean Corpuscular Volume 88.6 fl (81-99); Mean Platelet Volume 10.6 fL (7.4-10.4); Monocytes # 0.4 10^3/uL (0.2-0.9); Monocytes % 5.4 %; Neutrophils # 3.39 10^3/uL (1.8-7.7); Neutrophils % 47.9 %; Nucleated Red Blood Cells % 0 %; Platelet Count 180 10^3/cmm (130-400); Red Blood Count 3.76 10^6/uL (4.1-5.3); Red Cell Distribution Width 13.6 % (12.1-15.1); White Blood Count 7.1 10^3/uL (4.0-10.0)
[2022-04-18 06:11] LABS: Estmated Average Glucose 174; Hemoglobin A1C 7.7 % (4.0-6.0)
[2022-04-18 06:19] LABS: Glucose Point of Care 123 mg/dL (70-110)
[2022-04-18 06:23] LABS: Alanine Aminotransferase 44 U/L (0-33); Albumin Level 3.2 g/dL (3.5-5.2); Alkaline Phosphatase 84 IU/L (35-105); Anion Gap 11.2 (5-19); Aspartate Amino Transferase 46 U/L (0-32); Blood Urea Nitrogen 24 mg/dL (6-20); Calcium 8.4 mg/dL (8.5-10.5); Carbon Dioxide 24 mmol/L (22-29); Chloride 111 mmol/L (98-107); Globulin 2.4 g/dL (1.3-4.6); Glucose 133 mg/dL (65-115); Osmolality Calculated 300 mOsm/kg (285-295); Potassium 4.2 mmol/L (3.5-5.1); Sodium 142 mmol/L (136-145); Total Bilirubin 0.3 mg/dL (0.15-1.2); Total Protein 5.6 g/dL (6.6-8.7)
[2022-04-18 06:25] LABS: Chol HDL Ratio 4.67 mg/dL (0.0-4.40); Cholesterol 154 mg/dL (0-200); HDL Cholesterol 33 mg/dL (60-100); LDL Cholesterol Calculated 102 mg/dL (50-129); Triglycerides 95 mg/dL (0-150); VLDL Cholestrol Calculation 19 mg/dL (0-30)
[2022-04-18] MEDS: apixaban 5 mg Tablet PO (09:03)
[2022-04-18] MEDS: pregabalin 25 mg Capsule PO (09:03)
[2022-04-18] MEDS: levothyroxine 75 mcg Tablet PO (09:04)
[2022-04-18] MEDS: pantoprazole DR 40 mg Tablet PO (09:04)
--- NOTE | 2022-04-18 10:24 | PC.CHAP ---
Pastoral Care Encounter/Spiritual Assessment Type of Contact [] Declined product safety technician visit [] Patient/Family/Request visit [] Outpatient visit [] Follow-up visit [] Physician referral [] Code/Alert [x] Routine visit [] Staff referral [] Actively dying [x] Patient sleeping [] Family support [] [] Out of room [] Palliative care [] [] Receiving care in room [] Pre-surgical visit [] Trauma [] Long length of stay [] ICU visit [] Other: Relational/Emotional Strength [] Patient feels connected with others/family/visitors/staff [] Distress [] Loneliness/isolation [] Abandonment Spirituality of Patient [] Person of Nancy [] Attends Yarsanism of their Nancy [] Believes in Prayer [] Reads Bible or Anabaptism materials [] There are Spiritual issues to be addressed Acquisition Manager Interventions [] Prayer [] Active listening [] Non-anxious presence [] Spiritual/emotional support [] Crisis/trauma care [] Spiritual counseling [] Bereavement support [] Provided bereavement packet [] Provided Bible/devotional materials [] Provided toy/stuffed animal, coloring book to patient or family member [] Provided Communion [] Anointing/[place] [] Salvation [] Completed spiritual assessment [] Other: Impact on Illness or Injury [] Angry [] Fearful [] Anxious [] Often cries [] Exhaustion [] Unable to work [] Unable to attend evangelical [] Unable to walk/stand [] Unable to read [] Unable to drive [] Unable to eat/drink [] Unable to sleep [] Unable to be with family [] Patient intubated [] Other: Summary Time spent with patient
--- NOTE | 2022-04-18 10:56 | P.DS_ITS ---
Discharge Providers Date of Admission: 04/17/22 03:03 Date of Discharge: April 18, 2022 Attending Provider at Admission: Yuliana Danielle MD Attending Provider at Discharge: Patrick Ozuna MD Primary Care Provider: Tc Camacho DO Diagnoses at Discharge Discharge Diagnosis (1) Atrial fibrillation with RVR: Status: Acute Reason for Visit Reason for Visit: cp,irregular hr Hospital Course Hospital Course Nyasia Elkins is a 52 year old female with a past medical history of atrial fibrillation, hypothyroidism, hypertension, who has been off medications since she was unable to afford them.? She presents today with complaints of palpitations and chest pain that started last night.? Upon presentation to the ER she was found to be in A. fib with RVR with heart rate in the 150s.? She received Cardizem push and was thereafter started on a drip. After being on Cardizem drip patient converted to normal sinus rhythm but had bradycardia with heart rate running in 50s. Patient did not have any dizziness, nausea vomiting, headache. During hospitalization patient was initially found to be in acute kidney injury secondary dehydration. Later patient stated that she is taking a new pill for losing weight which makes her eat and drink less. She is started on IV fluids and by the next day her creatinine came back to her baseline. She has been discharged hemodynamically stable condition with advised to drink at least 2 to 3 L of fluid daily. She is being sent home on metoprolol 12.5 mg twice daily as needed for heart rate of more than 100 bpm. Given history of paroxysmal A. fib she is being sent home with an event monitor. Further need of anticoagulation for stroke prevention was also discussed in detail with the patient and patient's family at bedside and they were both agreeable. She is been discharged on Eliquis 5 mg twice daily. Physical Exam Narrative: General: No acute distress, AO x3 HEENT: PERRLA, pupils bilaterally equal and reactive, pallors not present Chest: Normal vesicular breath sounds, no added sounds, equal good air entry bilaterally CVS: S1-S2 regular, no murmurs, no tachycardia, no gallops, no rubs Abdomen: Soft, nontender, no organomegaly, bowel sounds present Neuro: No focal deficits, no facial deformity, AO x3, power 5/5 in all limbs Discharge Data Studies Completed and Pending Completed Studies During Hospitalization Category Date Time Status XR chest 1V portable [id number] Stat Exams 04/17/22 02:04 Completed US renal BI* [id number] Routine Ultrasound 04/17/22 10:59 Completed Radiology Impressions Chest X-Ray 04/17/22 02:04 IMPRESSION: No acute cardiopulmonary abnormality. Renal Ultrasound 04/17/22 10:59 IMPRESSION: Normal renal ultrasound. Laboratory Results WBC 7.1 10^3/uL (4.0-10.0) 04/18/22 05:41 RBC 3.76 10^6/uL (4.1-5.3) L 04/18/22 05:41 Hgb 11.1 g/dL (11.5-15.3) L 04/18/22 05:41 Hct 33.3 % (37.0-47.0) L 04/18/22 05:41 MCV 88.6 fl (81-99) 04/18/22 05:41 MCH 29.5 pg (28.0-34.0) 04/18/22 05:41 MCHC 33.3 g/dL (30.0-36.0) 04/18/22 05:41 RDW 13.6 % (12.1-15.1) 04/18/22 05:41 Plt Count 180 10^3/cmm (130-400) 04/18/22 05:41 MPV 10.6 fL (7.4-10.4) H 04/18/22 05:41 Neut % (Auto) 47.9 % 04/18/22 05:41 Lymph % (Auto) 40.1 % 04/18/22 05:41 O'Brien % (Auto) 5.4 % 04/18/22 05:41 Eos % (Auto) 5.9 % 04/18/22 05:41 Baso % (Auto) 0.7 % 04/18/22 05:41 Neut # (Auto) 3.39 10^3/uL (1.8-7.7) 04/18/22 05:41 Lymph # (Auto) 2.8 10^3/uL (0.8-4.8) 04/18/22 05:41 O'Brien # (Auto) 0.4 10^3/uL (0.2-0.9) 04/18/22 05:41 Eos # (Auto) 0.4 10^3/uL (0.0-0.8) 04/18/22 05:41 Baso # (Auto) 0.1 10^3/uL (0.0-0.1) 04/18/22 05:41 Nucleated RBC % (auto) 0 % 04/18/22 05:41 Nucleated RBCs # 0.0 /100WBC 04/18/22 05:41 PT 13.90 SECONDS (12.1-14.9) 04/17/22 02:12 INR 1.04 (0.8-1.2) 04/17/22 02:12 Sodium 142 mmol/L (136-145) 04/18/22 05:41 Potassium 4.2 mmol/L (3.5-5.1) 04/18/22 05:41 Chloride 111 mmol/L (98-107) H 04/18/22 05:41 Carbon Dioxide 24 mmol/L (22-29) 04/18/22 05:41 Anion Gap 11.2 (5-19) 04/18/22 05:41 BUN 24 mg/dL (6-20) H 04/18/22 05:41 Creatinine 1.1 mg/dL (0.5-0.9) H 04/18/22 05:41 GFR Calculation 52.0 mL/min (90-130) L 04/18/22 05:41 Glucose 133 mg/dL (65-115) H 04/18/22 05:41 POC Glucose 123 mg/dL (70-110) H 04/18/22 06:08 Estimat Average Glucose 174 04/18/22 05:41 Hemoglobin A1c 7.7 % (4.0-6.0) H 04/18/22 05:41 Calculated Osmolality 300 mOsm/kg (285-295) H 04/18/22 05:41 Calcium 8.4 mg/dL (8.5-10.5) L 04/18/22 05:41 Iron 49 ug/dL (37-145) 04/17/22 08:20 Iron Cancelled 04/17/22 08:20 TIBC 258 mcg/dl 04/17/22 08:20 TIBC Cancelled 04/17/22 08:20 % Saturation 18.9 % (20-50) L 04/17/22 08:20 % Saturation Cancelled 04/17/22 08:20 Unsat Iron Binding 209 ug/dL (112-347) 04/17/22 08:20 Unsat Iron Binding Cancelled 04/17/22 08:20 Total Bilirubin 0.3 mg/dL (0.15-1.2) 04/18/22 05:41 AST 46 U/L (0-32) H 04/18/22 05:41 ALT 44 U/L (0-33) H 04/18/22 05:41 Alkaline Phosphatase 84 IU/L (35-105) 04/18/22 05:41 Troponin T Baseline 14 ng/L (0-10) H 04/17/22 02:12 Troponin T 120 Minute 16.42 ng/L (0-10) H 04/17/22 04:00 Delta Troponin T 2.42 ABS# (0-10) 04/17/22 04:00 Troponin T Hi Sens 6Hr 16.04 ng/L (0-10) H 04/17/22 08:20 Troponin T Hi Sens 6Hr Delta 2.04 ng/L (0-12) 04/17/22 08:20 NT-Pro-B Natriuret Pep 74 pg/mL (0-125) 04/17/22 02:12 Total Protein 5.6 g/dL (6.6-8.7) L 04/18/22 05:41 Albumin 3.2 g/dL (3.5-5.2) L 04/18/22 05:41 Globulin 2.4 g/dL (1.3-4.6) 04/18/22 05:41 Triglycerides 95 mg/dL (0-150) 04/18/22 05:41 Cholesterol 154 mg/dL (0-200) 04/18/22 05:41 LDL Cholesterol, Calc 102 mg/dL (50-129) 04/18/22 05:41 Total VLDL Cholesterol 19 mg/dL (0-30) 04/18/22 05:41 HDL Cholesterol 33 mg/dL (60-100) L 04/18/22 05:41 Cholesterol/HDL Ratio 4.67 mg/dL (0.0-4.40) H 04/18/22 05:41 Vitamin B12 583 pg/mL (232-1245) 04/17/22 08:20 Folate 16.8 ng/mL (4.8-37.3) 04/17/22 02:12 TSH 3.32 uIU/mL (0.27-4.20) 04/17/22 08:20 Urine Color Yellow (Yellow) 04/17/22 17:20 Urine Appearance Clear (CLEAR) 04/17/22 17:20 Urine pH 5 (5-7) 04/17/22 17:20 Ur Specific [place] 1.020 (1.005-1.030) 04/17/22 17:20 Urine Protein Neg (Negative) 04/17/22 17:20 Urine Glucose (UA) Norm (Normal) 04/17/22 17:20 Urine Ketones Negative (Negative) 04/17/22 17:20 Urine Blood Neg (Negative) 04/17/22 17:20 Urine Nitrate Negative (Negative) 04/17/22 17:20 Urine Bilirubin Neg (Negative) 04/17/22 17:20 Urine Urobilinogen Norm mg/dL (Negative) 04/17/22 17:20 Ur Leukocyte Esterase Negative (Negative) 04/17/22 17:20 Ur Random Sodium 100 mmol/L 04/17/22 17:20 Ur Random Potassium 42 mmol/L 04/17/22 17:20 Ur Random Chloride 76 mmol/L 04/17/22 17:20 Urine Creatinine 190 mg/dL () 04/17/22 17:20 Vitals Last Vital Signs Temp 98.3 F 04/18/22 08:00 Pulse 67 04/18/22 09:15 Resp 25 H 04/18/22 08:00 BP 154/85 04/18/22 08:00 Pulse Ox 96 04/18/22 09:15 O2 Del Method 04/18/22 09:15 Discharge Plan Discharge Patient Disposition: Home Condition: Stable Prescriptions: New metoprolol tartrate 25 mg tablet 12.5 mg PO BID PRN (Reason: HR more than 100 bpm) Qty: 30 0RF Eliquis 5 mg Tablet 5 mg PO BID@0900,2100 Qty: 60 0RF Continued levothyroxine 75 mcg tablet 75 mcg PO DAILY Qty: 90 1RF lisinopril 40 mg tablet 40 mg PO DAILY Qty: 90 1RF potassium citrate 10 mEq (1,080 mg) tablet extended release 10 meq PO TID Qty: 90 2RF pregabalin [Lyrica] 50 mg capsule 50 mg PO BID Qty: 60 2RF glipizide 10 mg tablet 10 mg PO BID Qty: 60 2RF loratadine 10 mg Tablet 10 mg PO DAILY magnesium 200 mg Tablet 400 mg PO DAILY aspirin 81 mg Capsule 81 mg PO DAILY Discharge Orders: Discharge Order (Routine); Ordered 04/18/22 Ordered By: Patrick Ozuna Other Ambulatory Orders: MCT/Event Monitor 21 Days (Routine) Timeframe: 1 Week Facility: [facility] - Location: Radiology Ordered By: Patrick Ozuna Referrals: Tc Camacho DO [Primary Care Provider] - Rosa Isela Chapman MD [Physician] - 1 month Discharge Diet: Cardiac and Diabetic Discharge Activity: Resume usual activity and Increase activity as tolerated Patient Instructions: Opioid Safety Activity Restrictions/Additional Instructions: Patient will benefit from outpatient stress test for ischemic work-up. Take metoprolol 12.5 mg twice daily on as-needed basis for heart rate of more than 100 bpm. Eliquis is a blood thinner. Takes 1 tablet morning, 1 tablet evening going forward as discussed in detail. Please follow-up with quality systems engineer within next 1 month on set appointment Discharge Attestations Time Spent in Discharge Care*: greater than 30 min Specific Discharge Activities: educating patient, educating and/or supporting family/caregiver, discussing with shoe parts caser/social workers/dc planners, documenting/other paperwork and evaluating patient/reviewing data Status at Discharge: Cognitive status at discharge: cognitively intact , Behavioral status at discharge: cooperative , Functional status at discharge: independent ambulation , Overall status at discharge: patient is back to baseline Quality Metrics Clinical Quality Measures [ No reported AMI, CVA or VTE this stay] Coding Level of Care Code Acute Chg FW DC note Diagnoses Atrial fibrillation with RVR I48.91
--- NOTE | 2022-04-18 10:56 | PC.NURSE ---
pt refused to be attached back to tele monitor after her shower she stated the doctor in room and told her she is going home today.
--- NOTE | 2022-04-18 10:59 | USCV_ITS ---
Nyasia Elkins Age: 52 Gender: F : 1970 Exam Date: 04/18/2022 13:00 Ordering Phys: Patrick zOuna MD Technologist: Corbin Quinonez Exam Location: [facility] [place] Indication: chest pain BP: 115 / 75 HR: 58 Rhythm: Sinus Technical Quality: Adequate MEASUREMENTS (Male / Female) Normal Values 2D ECHO LV Diastolic Diameter PLAX 3.1 cm 4.2 - 5.9 / 3.9 - 5.3 cm LV Systolic Diameter PLAX 2.0 cm IVS Diastolic Thickness 0.9 cm 0.6 - 1.0 / 0.6 - 0.9 cm IVS Systolic Thickness 1.0 cm LVPW Diastolic Thickness 0.9 cm 0.6 - 1.0 / 0.6 - 0.9 cm LVPW Systolic Thickness 0.9 cm LVOT Diameter 2.1 cm LV Ejection Fraction 2D Teich 56.1 % LV Ejection Fraction MOD 2C 55.8 % LV Ejection Fraction 2C AL 55.7 % LA Diameter 3.5 cm M-MODE Aortic Annulus Diameter 3.5 cm LA Ao Ratio MM 1.0 MV E Point Septal Separation 0.8 cm DOPPLER AV Peak Velocity 135.0 cm/s LVOT Peak Velocity 102.0 cm/s AV Area Cont Eq vti 3.2 cm squared AV Area Cont Eq pk 2.5 cm squared MV Area PHT 5.0 cm squared Mitral E to A Ratio 1.3 MV E' Velocity 49.0 cm/s Mitral E to MV E' Ratio 8.9 Mitral E to LV E' Lateral Ratio 7.8 Mitral E to LV E' Septal Ratio 10.5 TR Peak Velocity 151.7 cm/s TR Peak Gradient 9.2 mmHg Right Atrial Pressure 3.0 mmHg Pulmonary Artery Systolic Pressu 12.2 mmHg PV Peak Velocity 100.0 cm/s FINDINGS Left Ventricle Normal left ventricular size, systolic function and wall thickness, with no regional wall motion abnormalities. Normal left ventricular wall thickness. Normal diastolic filling pattern. Left ventricular ejection fraction is estimated at 55 %. Right Ventricle The right ventricle is normal in size and function. Right Atrium The right atrium is normal in size. Left Atrium The left atrium is normal in size. Mitral Valve Structurally normal mitral valve without significant stenosis or prolapse. There is no mitral regurgitation. Aortic Valve Structurally normal aortic valve without significant sclerosis or stenosis. There is no aortic regurgitation. Tricuspid Valve Structurally normal tricuspid valve without significant stenosis or regurgitation. Pulmonary artery systolic pressure is normal. Pulmonic Valve Structurally normal pulmonic valve without significant stenosis. There is no pulmonic regurgitation. Pericardium Normal pericardium without effusion. Aorta Normal ascending aorta dimension. IVC The inferior vena cava pulmonary and hepatic veins appear normal. CONCLUSIONS Normal transthoracic echocardiogram. Dr. Cezar Sanchez MD (Electronically Signed) Final Date: 19 April 2022 08:59 S
[2022-04-18 11:52] LABS: Glucose Point of Care 243 mg/dL (70-110)
--- NOTE | 2022-04-18 17:20 | PC.SOCIAL ---
Social Service per patient care nurse Myles request patient provided w/ [facility] financial assistance application and information on how to apply for CINDY. Patient reports that someone has already called her to start the CINDY application.
== END 2022-04-18 14:40 | disposition home or self-care (01) ==
LOC: ER 03:04 → MEDSURG 07:51
PROVIDERS: Admitting Provider Student in an Organized Health Care Education/Training Program; Emergency Provider Emergency Medicine; PCP Family Medicine; Visit Provider Student in an Organized Health Care Education/Training Program
DX: I48.91 Unspecified atrial fibrillation (principal); E03.9 Hypothyroidism, unspecified; I10 Essential (primary) hypertension; Z79.82 Long term (current) use of aspirin; E78.5 Hyperlipidemia, unspecified; E11.9 Type 2 diabetes mellitus without complications; Z79.4 Long term (current) use of insulin; E66.9 Obesity, unspecified; Z68.36 Body mass index [BMI] 36.0-36.9, adult
CPT/HCPCS: 36415; 36416; 71045; 76770; 80048; 80053; 80061; 81003; 82436; 82570; 82607; 82746; 82962; 83036; 83540; 83550; 83880; 84133; 84300; 84443; 84484; 85025; 85610; 86403; 87449; 93005; 93306; 94760; 96372; 96374; 99285; G0378; J1815; J3490; J7030; J7040

== ENCOUNTER → 2022-04-29 12:14 | Outpatient (BNVA) | payer BC, SELFPAY | PROVIDERS: PCP Family Medicine; Visit Provider Family Medicine | DX: N17.9 Acute kidney failure, unspecified (principal); E08.40 Diabetes mellitus due to underlying condition with diabetic neuropathy, unspecified | CPT/HCPCS: 80048 ==

== ENCOUNTER 2022-07-28 14:00 | Outpatient (CLI) | payer BC, MEDICAID, SELFPAY | END 2022-07-28 14:01 | disposition home or self-care (01) | LOC: SLEEP 07-29 12:51 | PROVIDERS: PCP Family Medicine; Visit Provider Internal Medicine Cardiovascular Disease | DX: R06.00 Dyspnea, unspecified (principal); G47.10 Hypersomnia, unspecified | CPT/HCPCS: G0399 ==

== ENCOUNTER 2022-07-29 08:19 | Emergency (ER) | payer BC, MEDICAID, SELFPAY ==
[2022-07-29] VITALS (7 sets, daily range): BP systolic 104–154; BP diastolic 65–100; PULSE 63–91; RESP 16–18; TEMP 36; O2SAT 95–98
--- NOTE | 2022-07-29 08:36 | ECG_ITS ---
[facility] Test Date: 2022-07-29 Pat Name: Nyasia Elkins Department: Room: Gender: Female Legal Intern: : 1970 Requested By: Tyson Field Order Number: [id number] Kandi MD: Last Fulton M.D. Measurements Intervals [place] Rate: 81 P: 29 TX: 153 QRS: 30 QRSD: 85 T: 40 QT: 360 QTc: 420 Interpretive Statements SINUS RHYTHM INTERPRETATION BASED ON A DEFAULT AGE OF 40 YEARS Compared to ECG 04/17/2022 08:06:38 Sinus bradycardia no longer present Electronically Signed On 07-29-2022 20:57:53 BAND LINING BANDER by Last Fulton M.D. [email or web address] [id number] f
--- NOTE | 2022-07-29 08:37 | XRR_ITS ---
PROCEDURE INFORMATION: Exam: XR Chest Exam date and time: 07/29/2022 9:49 AM Age: 52 years old Clinical indication: Angina pectoris and right-sided; Prior surgery; Surgery type: Cholecystecomty hysterectomy; Patient HX: Chest pain that started this morning in the center of chest along sternum. PT states that it radiated down her RT arm just for a little bit but that her hands and feet have been swollen for 2 days; Additional info: Cp TECHNIQUE: Imaging protocol: Radiologic exam of the chest. Views: 1 view. COMPARISON: CR (CHEST, ) 04/17/2022 2:16 AM FINDINGS: Lungs: The lung parenchyma is clear. Pleural spaces: No pneumothorax. No pleural effusion. Heart/Mediastinum: The cardiomediastinal silhouette is within normal limits. Bones/joints: Unremarkable. XR/XR chest 1V portable [id number] IMPRESSION: No acute cardiopulmonary abnormality.
--- NOTE | 2022-07-29 09:03 | W.ED.CHESTPA ---
Documented by User: ANNETTE Barone 07/30/22 07:19 HPI - Chest Pain General: Chief Complaint: Chest Pain Stated Complaint: heart racing,low back pain Time Seen by Provider: 07/29/22 08:37 History of Present Illness: Patient is a 52-year-old female comes to the ED with chest pain. Past medical history of A. fib, type 2 diabetes, hypertension and hyperlipidemia. Her chest pain started at around 330 this morning while she was up and moving around. Chest pain improves with rest. She is also complaining of having a fever last night with dysuria and bladder tenderness and pain. She also endorses increased urine frequency. Denies any nausea or vomiting. Associated symptoms: Reports fever(s); Deny abdominal pain, dyspnea, nausea, palpitations or vomiting Review of Systems Const: Reports: fever(s); Denies: chills or fatigue Eyes: Denies: change in vision or eye discomfort ENMT: Denies: throat pain, odynophagia, nasal discharge or nasal congestion Card: Reports: chest pain; Denies: palpitations, edema, swelling of feet/ankles, dyspnea on exertion or orthopnea Resp: Denies: dyspnea, productive cough or non-productive cough GI: Denies: abdominal pain, nausea, vomiting, diarrhea, constipation or hematochezia : Reports: dysuria and other (Bladder pain/tenderness); Denies: flank pain or hematuria Musc: Denies: neck pain, back pain or extremity swelling Skin/Breast: Denies: rash or new lesions Neuro: Denies: headache(s), numbness in extremities or weakness in extremities PFS ED PFSH: Medical History Adult hypothyroidism Afib Arthritis Atrial fibrillation Controlled type 2 diabetes mellitus with hyperglycemia, without long-term current use of insulin Gout, unspecified HTN (hypertension) Hyperlipidemia Hypothyroidism Myalgia Obesity (BMI 30.0-34.9) PVD (peripheral vascular disease) Renal calculi Type 2 diabetes mellitus Ureterolithiasis Surgical History H/O cystoscopy 2014 History of cholecystectomy History of colonoscopy Endoscopy 2016 History of hysterectomy S/P cystoscopy with ureteral stent placement Family History Mother Thyroid condition Father Heart disease Other CAD (coronary artery disease) Cancer Diabetes Gout, unspecified Hypertension Stroke Social History Smoking and tobacco status: never smoked Smoking risk assessment/counseling performed?: No Alcohol intake: never Desire information about alcohol rehabilitation?: No Counseling given: No Desire information about substance/drug rehabilitation?: No Counseling given: No Caregiver/support person: No Lives independently: Yes Household members: spouse Marital status: Number of children: 1 Current occupational status: disabled History of recent travel: No Female Reproductive History: Date of last menstrual period: 08/21/99 Spontaneous abortions: No Physical Exam Const: COMMON NORMALS: patient oriented x3 and alert HENMT: COMMON NORMALS: normocephalic HEAD & SCALP: normocephalic MOUTH: Normal oral and palatal mucosa present THROAT: posterior oropharynx normal and uvula midline Neck/C-Spine: COMMON NORMALS: supple GENERAL: Yes normal visual inspection Resp: COMMON NORMALS: normal respiratory effort, No retractions, No use of accessory muscles and clear to auscultation bilaterally AUSCULTATION: clear to auscultation bilaterally Cardio: COMMON NORMALS: regular rate, regular rhythm, S1 normal heart sound present, S2 normal heart sound present, No gallops present (Cardio), No clicks present (Cardio), No murmurs present (Cardio) and Peripheral pulses 2+ throughout RATE: regular rate RHYTHM: regular rhythm HEART SOUNDS: S1 normal heart sound present and S2 normal heart sound present PERIPHERAL PULSES: Peripheral pulses 2+ throughout GI: COMMON NORMALS: Normal to inspection, nondistended, normoactive bowel sounds present, Soft to palpation, non-tender and no masses PALPATION: Yes Soft to palpation and Yes Bladder palpation abnormal : COMMON NORMALS: Yes no CVA tenderness BLADDER/KIDNEY EXAM: Yes no CVA tenderness and Yes Bladder palpation abnormal Bladder abnormal details: tender Back/Pelvis: COMMON NORMALS: no CVA tenderness Neuro: COMMON NORMALS: patient oriented x3 SENSORIUM/ORIENTATION: Yes alert GAIT: Yes Normal gait present Skin: GENERAL SKIN EXAM: dry skin Course Vital Signs: Vital signs: Vital Signs Temperature 96.8 F L 07/29/22 08:28 Pulse Rate 63 07/29/22 12:04 Respiratory Rate 17 07/29/22 09:41 Blood Pressure 105/65 07/29/22 12:04 Pulse Oximetry 98 07/29/22 12:04 Oxygen Delivery Me thod 07/29/22 11:37 MDM - Chest Pain Medical Decision Making Patient is a 52-year-old female comes to the ED with chest pain. Chest pain occurred earlier this morning while up and ambulating. Chest pain improves when resting. She is also complaining of having a fever, dysuria and bladder tenderness. Vitals are stable. Patient appears nontoxic in no acute distress or pain. She has some palpable bladder tenderness but rest of exam is benign. White blood cell count 13.7. CMP unremarkable. UA shows UTI. Troponins negative. EKG showed normal sinus rhythm with no ST segment elevation or depression seen. Chest x-ray shows no acute findings. Patient was diagnosed with UTI and noncardiac chest pain. She was given a dose of IV antibiotics here in the ED and was discharged home. She was sent home with a prescription for antibiotic and told to follow-up with her PCP within the next week for reevaluation. Strict return to ED precautions given. Patient understood and agreed with plan. Lab Data I reviewed the patient's lab results. : 07/29/22 09:25 07/29/22 09:25 Radiology Impressions Chest X-Ray 07/29/22 08:37 IMPRESSION: No acute cardiopulmonary abnormality. Laboratory Results WBC 13.7 10^3/uL (4.0-10.0) H 07/29/22 09:25 RBC 4.58 10^6/uL (4.1-5.3) 07/29/22 09:25 Hgb 13.2 g/dL (11.5-15.3) 07/29/22 09:25 Hct 41.2 % (37.0-47.0) 07/29/22 09:25 MCV 90.0 fl (81-99) 07/29/22 09:25 MCH 28.8 pg (28.0-34.0) 07/29/22 09:25 MCHC 32.0 g/dL (30.0-36.0) 07/29/22 09:25 RDW 13.1 % (12.1-15.1) 07/29/22 09:25 Plt Count 157 10^3/cmm (130-400) 07/29/22 09:25 MPV 10.0 fL (7.4-10.4) 07/29/22 09:25 Neut % (Auto) 85.4 % 07/29/22 09:25 Lymph % (Auto) 6.6 % 07/29/22 09:25 Fountain % (Auto) 6.3 % 07/29/22 09:25 Eos % (Auto) 0.7 % 07/29/22 09:25 Baso % (Auto) 0.4 % 07/29/22 09:25 Neut # (Auto) 11.74 10^3/uL (1.8-7.7) H 07/29/22 09:25 Lymph # (Auto) 0.9 10^3/uL (0.8-4.8) 07/29/22 09:25 [place] # (Auto) 0.9 10^3/uL (0.2-0.9) 07/29/22 09:25 Eos # (Auto) 0.1 10^3/uL (0.0-0.8) 07/29/22 09:25 Baso # (Auto) 0.1 10^3/uL (0.0-0.1) 07/29/22 09:25 Nucleated RBC % (auto) 0 % 07/29/22 09:25 Nucleated RBCs # 0.0 /100WBC 07/29/22 09:25 Sodium 136 mmol/L (136-145) 07/29/22 09:25 Potassium 3.9 mmol/L (3.5-5.1) 07/29/22 09:25 Chloride 101 mmol/L (98-107) 07/29/22 09:25 Carbon Dioxide 25 mmol/L (22-29) 07/29/22 09:25 Anion Gap 13.9 (5-19) 07/29/22 09:25 BUN 20 mg/dL (6-20) 07/29/22 09:25 Creatinine 1.2 mg/dL (0.5-0.9) H 07/29/22 09:25 GFR Calculation 47.0 mL/min (90-130) L 07/29/22 09:25 Glucose 136 mg/dL (65-115) H 07/29/22 09:25 Calculated Osmolality 287 mOsm/kg (285-295) 07/29/22 09:25 Calcium 9.1 mg/dL (8.5-10.5) 07/29/22 09:25 Total Bilirubin 0.5 mg/dL (0.15-1.2) 07/29/22 09:25 AST 23 U/L (0-32) 07/29/22 09:25 ALT 36 U/L (0-33) H 07/29/22 09:25 Alkaline Phosphatase 107 U/L (35-105) H 07/29/22 09:25 Troponin T Baseline 16 ng/L (0-10) H 07/29/22 09:25 Troponin T 120 Minute 12.36 ng/L (0-10) H 07/29/22 10:58 Delta Troponin T -3.64 ABS# (0-10) L 07/29/22 10:58 NT-Pro-B Natriuret Pep 173 pg/mL (0-125) H 07/29/22 09:25 Total Protein 6.5 g/dL (6.6-8.7) L 07/29/22 09:25 Albumin 3.7 g/dL (3.5-5.2) 07/29/22 09:25 Globulin 2.8 g/dL (1.3-4.6) 07/29/22 09:25 Lipase 8 U/L (13-60) L 07/29/22 09:25 Urine Color Yellow (Yellow) 07/29/22 Unknown Urine Appearance Clear (CLEAR) 07/29/22 Unknown Urine pH 5 (5-7) 07/29/22 Unknown Ur Specific [place] 1.015 (1.005-1.030) 07/29/22 Unknown Urine Protein 1+ (Negative) H 07/29/22 Unknown Urine Glucose (UA) Norm (Normal) 07/29/22 Unknown Urine Ketones Negative (Negative) 07/29/22 Unknown Urine Blood 3+ (Negative) H 07/29/22 Unknown Urine Nitrate Positive (Negative) H 07/29/22 Unknown Urine Bilirubin Neg (Negative) 07/29/22 Unknown Urine Urobilinogen Norm mg/dL (Negative) 07/29/22 Unknown Ur Leukocyte Esterase 2+ (Negative) H 07/29/22 Unknown Urine RBC 10-15 /hpf (0-2) H 07/29/22 Unknown Urine WBC 25-40 /hpf (0-5) H 07/29/22 Unknown Ur Squamous Epith Cells 5-10 /hpf (0-5) H 07/29/22 Unknown Amorphous Sediment Not Reportable 07/29/22 Unknown Urine Bacteria 3+ /hpf (NONE) H 07/29/22 Unknown EKG Data EKG 1: EKG interpretation date: 07/29/22 Interpretation: Sinus rhythm, 64 bpm, no ST segment elevation or depression seen. Discharge Plan Discharge Patient Disposition: Home Clinical Impression: Non-cardiac chest pain UTI (urinary tract infection) Qualifiers: Urinary tract infection type: acute cystitis Hematuria presence: with hematuria Qualified Code(s): N30.01 - Acute cystitis with hematuria Condition: Stable Prescriptions: New cefdinir 300 mg capsule 300 mg PO BID 10 Days Qty: 20 0RF No Action pregabalin 100 mg capsule 100 mg PO BID Qty: 60 2RF Eliquis 5 mg tablet 5 mg PO BID@0900,2100 Qty: 60 2RF baclofen 10 mg tablet 10 mg PO TID Qty: 30 0RF lidocaine [Aspercreme (lidocaine)] 4 % adhesive patch,medicated 1 patch topical DAILY MDD 1 patch PRN (Reason: pain) Qty: 30 5RF Rx Instructions: May leave patch on skin for no more than 12 hrs Flonase Allergy Relief 50 mcg/actuation [place],Suspension 2 spray INTRANASAL DAILY Rx Instructions: administer into each nostril glipizide 10 mg tablet 10 mg PO BID levothyroxine 75 mcg tablet 75 mcg PO QAM potassium citrate 10 mEq (1,080 mg) tablet extended release 10 meq PO TID lisinopril 40 mg tablet 40 mg PO QAM loratadine 10 mg Tablet 10 mg PO QAM magnesium 200 mg Tablet 400 mg PO DAILY metoprolol tartrate 25 mg tablet 12.5 mg PO BID PRN (Reason: HR more than 100 bpm) Qty: 30 0RF Discharge Orders: Discharge ED (Routine); Ordered 07/29/22 Ordered By: Tyson Field Referrals: Tc Camacho DO [Primary Care Provider] - Discharge Diet: Regular Discharge Activity: Increase activity as tolerated Patient Instructions: Urinary Tract Infection in Women (DC), Noncardiac Chest Pain (ED) Activity Restrictions/Additional Instructions: Follow-up with medical provider as directed in the next 3 to 5 days for reevaluation. Take medications as prescribed. Take [id number] Tylenol per bottle instruction to help with pain. Return to the ER or your medical provider if condition worsens. Please read and understand discharge instructions. Thank you for choosing [facility] for your healthcare needs today. Please realize this is an emergency room and that we are providing you with a medical screening exam and this may not be complete and all inclusive of all the testing and or work up that you may need to determine your ailment or severity of your illness. It is very important that you follow up as instructed or that you return to the Emergency Department should you have concerns or if your condition changes or worsens in any way. Stand Alone Forms: Work/School Release Coding Level of Care Code ED International Bank Manager for Chg Fwd Exam Comprehensive Documented by User: Nico Sanchez DO 07/30/22 14:06 HPI - Chest Pain General: Chief Complaint: Chest Pain Stated Complaint: heart racing,low back pain Time Seen by Provider: 07/29/22 08:37 [facility] ED PFSH: Medical History Adult hypothyroidism Afib Arthritis Atrial fibrillation Controlled type 2 diabetes mellitus with hyperglycemia, without long-term current use of insulin Gout, unspecified HTN (hypertension) Hyperlipidemia Hypothyroidism Myalgia Obesity (BMI 30.0-34.9) PVD (peripheral vascular disease) Renal calculi Type 2 diabetes mellitus Ureterolithiasis Surgical History H/O cystoscopy 2014 History of cholecystectomy History of colonoscopy Endoscopy 2016 History of hysterectomy S/P cystoscopy with ureteral stent placement Family History Mother Thyroid condition Father Heart disease Other CAD (coronary artery disease) Cancer Diabetes Gout, unspecified Hypertension Stroke Social History Smoking and tobacco status: never smoked Smoking risk assessment/counseling performed?: No Alcohol intake: never Desire information about alcohol rehabilitation?: No Counseling given: No Desire information about substance/drug rehabilitation?: No Counseling given: No Caregiver/support person: No Lives independently: Yes Household members: spouse Marital status: Number of children: 1 Current occupational status: disabled History of recent travel: No Course Vital Signs: Vital signs: Vital Signs Temperature 96.8 F L 07/29/22 08:28 Pulse Rate 63 07/29/22 12:04 Respiratory Rate 17 07/29/22 09:41 Blood Pressure 105/65 07/29/22 12:04 Pulse Oximetry 98 07/29/22 12:04 Oxygen Delivery Me thod 07/29/22 11:37 MDM - Chest Pain Medical Decision Making Patient is a 52-year-old female comes to the ED with chest pain. Chest pain occurred earlier this morning while up and ambulating. Chest pain improves when resting. She is also complaining of having a fever, dysuria and bladder tenderness. Vitals are stable. Patient appears nontoxic in no acute distress or pain. She has some palpable bladder tenderness but rest of exam is benign. White blood cell count 13.7. CMP unremarkable. UA shows UTI. Troponins negative. EKG showed normal sinus rhythm with no ST segment elevation or depression seen. Chest x-ray shows no acute findings. Patient was diagnosed with UTI and noncardiac chest pain. She was given a dose of IV antibiotics here in the ED and was discharged home. She was sent home with a prescription for antibiotic and told to follow-up with her PCP within the next week for reevaluation. Strict return to ED precautions given. Patient understood and agreed with plan. Chart reviewed and patient discussed with midlevel. Agree with assessment and plan. Lab Data : 07/29/22 09:25 07/29/22 09:25 Radiology Impressions Chest X-Ray 07/29/22 08:37 IMPRESSION: No acute cardiopulmonary abnormality. Laboratory Results WBC 13.7 10^3/uL (4.0-10.0) H 07/29/22 09:25 RBC 4.58 10^6/uL (4.1-5.3) 07/29/22 09:25 Hgb 13.2 g/dL (11.5-15.3) 07/29/22 09:25 Hct 41.2 % (37.0-47.0) 07/29/22 09:25 MCV 90.0 fl (81-99) 07/29/22 09:25 MCH 28.8 pg (28.0-34.0) 07/29/22 09:25 MCHC 32.0 g/dL (30.0-36.0) 07/29/22 09:25 RDW 13.1 % (12.1-15.1) 07/29/22 09:25 Plt Count 157 10^3/cmm (130-400) 07/29/22 09:25 MPV 10.0 fL (7.4-10.4) 07/29/22 09:25 Neut % (Auto) 85.4 % 07/29/22 09:25 Lymph % (Auto) 6.6 % 07/29/22 09:25 [place] % (Auto) 6.3 % 07/29/22 09:25 Eos % (Auto) 0.7 % 07/29/22 09:25 Baso % (Auto) 0.4 % 07/29/22 09:25 Neut # (Auto) 11.74 10^3/uL (1.8-7.7) H 07/29/22 09:25 Lymph # (Auto) 0.9 10^3/uL (0.8-4.8) 07/29/22 09:25 F[place] # (Auto) 0.9 10^3/uL (0.2-0.9) 07/29/22 09:25 Eos # (Auto) 0.1 10^3/uL (0.0-0.8) 07/29/22 09:25 Baso # (Auto) 0.1 10^3/uL (0.0-0.1) 07/29/22 09:25 Nucleated RBC % (auto) 0 % 07/29/22 09:25 Nucleated RBCs # 0.0 /100WBC 07/29/22 09:25 Sodium 136 mmol/L (136-145) 07/29/22 09:25 Potassium 3.9 mmol/L (3.5-5.1) 07/29/22 09:25 Chloride 101 mmol/L (98-107) 07/29/22 09:25 Carbon Dioxide 25 mmol/L (22-29) 07/29/22 09:25 Anion Gap 13.9 (5-19) 07/29/22 09:25 BUN 20 mg/dL (6-20) 07/29/22 09:25 Creatinine 1.2 mg/dL (0.5-0.9) H 07/29/22 09:25 GFR Calculation 47.0 mL/min (90-130) L 07/29/22 09:25 Glucose 136 mg/dL (65-115) H 07/29/22 09:25 Calculated Osmolality 287 mOsm/kg (285-295) 07/29/22 09:25 Calcium 9.1 mg/dL (8.5-10.5) 07/29/22 09:25 Total Bilirubin 0.5 mg/dL (0.15-1.2) 07/29/22 09:25 AST 23 U/L (0-32) 07/29/22 09:25 ALT 36 U/L (0-33) H 07/29/22 09:25 Alkaline Phosphatase 107 U/L (35-105) H 07/29/22 09:25 Troponin T Baseline 16 ng/L (0-10) H 07/29/22 09:25 Troponin T 120 Minute 12.36 ng/L (0-10) H 07/29/22 10:58 Delta Troponin T -3.64 ABS# (0-10) L 07/29/22 10:58 NT-Pro-B Natriuret Pep 173 pg/mL (0-125) H 07/29/22 09:25 Total Protein 6.5 g/dL (6.6-8.7) L 07/29/22 09:25 Albumin 3.7 g/dL (3.5-5.2) 07/29/22 09:25 Globulin 2.8 g/dL (1.3-4.6) 07/29/22 09:25 Lipase 8 U/L (13-60) L 07/29/22 09:25 Urine Color Yellow (Yellow) 07/29/22 Unknown Urine Appearance Clear (CLEAR) 07/29/22 Unknown Urine pH 5 (5-7) 07/29/22 Unknown Ur Specific [place] 1.015 (1.005-1.030) 07/29/22 Unknown Urine Protein 1+ (Negative) H 07/29/22 Unknown Urine Glucose (UA) Norm (Normal) 07/29/22 Unknown Urine Ketones Negative (Negative) 07/29/22 Unknown Urine Blood 3+ (Negative) H 07/29/22 Unknown Urine Nitrate Positive (Negative) H 07/29/22 Unknown Urine Bilirubin Neg (Negative) 07/29/22 Unknown Urine Urobilinogen Norm mg/dL (Negative) 07/29/22 Unknown Ur Leukocyte Esterase 2+ (Negative) H 07/29/22 Unknown Urine RBC 10-15 /hpf (0-2) H 07/29/22 Unknown Urine WBC 25-40 /hpf (0-5) H 07/29/22 Unknown Ur Squamous Epith Cells 5-10 /hpf (0-5) H 07/29/22 Unknown Amorphous Sediment Not Reportable 07/29/22 Unknown Urine Bacteria 3+ /hpf (NONE) H 07/29/22 Unknown Discharge Plan Discharge Patient Disposition: Home Clinical Impression: Non-cardiac chest pain UTI (urinary tract infection) Qualifiers: Urinary tract infection type: acute cystitis Hematuria presence: with hematuria Qualified Code(s): N30.01 - Acute cystitis with hematuria Condition: Stable Prescriptions: New cefdinir 300 mg capsule 300 mg PO BID 10 Days Qty: 20 0RF No Action pregabalin 100 mg capsule 100 mg PO BID Qty: 60 2RF Eliquis 5 mg tablet 5 mg PO BID@0900,2100 Qty: 60 2RF baclofen 10 mg tablet 10 mg PO TID Qty: 30 0RF lidocaine [Aspercreme (lidocaine)] 4 % adhesive patch,medicated 1 patch topical DAILY MDD 1 patch PRN (Reason: pain) Qty: 30 5RF Rx Instructions: May leave patch on skin for no more than 12 hrs Flonase Allergy Relief 50 mcg/actuation [place],Suspension 2 spray INTRANASAL DAILY Rx Instructions: administer into each nostril glipizide 10 mg tablet 10 mg PO BID levothyroxine 75 mcg tablet 75 mcg PO QAM potassium citrate 10 mEq (1,080 mg) tablet extended release 10 meq PO TID lisinopril 40 mg tablet 40 mg PO QAM loratadine 10 mg Tablet 10 mg PO QAM magnesium 200 mg Tablet 400 mg PO DAILY metoprolol tartrate 25 mg tablet 12.5 mg PO BID PRN (Reason: HR more than 100 bpm) Qty: 30 0RF Discharge Orders: Discharge ED (Routine); Ordered 07/29/22 Ordered By: Tyson Field Referrals: Tc Camacho DO [Primary Care Provider] - Discharge Diet: Regular Discharge Activity: Increase activity as tolerated Patient Instructions: Urinary Tract Infection in Women (DC), Noncardiac Chest Pain (ED) Activity Restrictions/Additional Instructions: Follow-up with medical provider as directed in the next 3 to 5 days for reevaluation. Take medications as prescribed. Take [id number] Tylenol per bottle instruction to help with pain. Return to the ER or your medical provider if condition worsens. Please read and understand discharge instructions. Thank you for choosing [facility] for your healthcare needs today. Please realize this is an emergency room and that we are providing you with a medical screening exam and this may not be complete and all inclusive of all the testing and or work up that you may need to determine your ailment or severity of your illness. It is very important that you follow up as instructed or that you return to the Emergency Department should you have concerns or if your condition changes or worsens in any way. Stand Alone Forms: Work/School Release Coding Level of Care Code ED International Bank Manager for Neeru Okeefe Exam Comprehensive
[2022-07-29 09:37] LABS: Basophils # 0.1 10^3/uL (0.0-0.1); Basophils % 0.4 %; Eosinophils # 0.1 10^3/uL (0.0-0.8); Eosinophils % 0.7 %; Hematocrit 41.2 % (37.0-47.0); Hemoglobin 13.2 g/dL (11.5-15.3); Lymphocytes # 0.9 10^3/uL (0.8-4.8); Lymphocytes % 6.6 %; Mean Corpuscular Hemoglobin 28.8 pg (28.0-34.0); Monocytes # 0.9 10^3/uL (0.2-0.9); Monocytes % 6.3 %; Neutrophils # 11.74 10^3/uL (1.8-7.7); Neutrophils % 85.4 %; Nucleated Red Blood Cells % 0 %; Platelet Count 157 10^3/cmm (130-400); Red Blood Count 4.58 10^6/uL (4.1-5.3); Red Cell Distribution Width 13.1 % (12.1-15.1); White Blood Count 13.7 10^3/uL (4.0-10.0)
[2022-07-29] MEDS: morphine 4 mg/mL SDV 1 mL IVP (09:37)
[2022-07-29 09:38] LABS: Blood Urine 3+ (Negative); Glucose Urine UA Norm (Normal); Ketones Urine Negative (Negative); Protein Urine 1+ (Negative); Specific Gravity, Urine 1.015 (1.005-1.030); Urine Appearance Clear (CLEAR); Urine Color Yellow (Yellow); pH Urine 5 (5-7)
[2022-07-29 09:39] LABS: Add Urine Culture? Yes; Add Urine Microscopic? YES; Bacteria Urine 3+ /hpf; Bilirubin Urine Neg (Negative); Leukocyte Esterase Urine 2+ (Negative); Nitrate Urine Positive (Negative); Urobilinogen Urine Norm (Negative); WBC Urine 25-40 /hpf (0-5)
[2022-07-29 09:56] LABS: Troponin(5th) Baseline 16 ng/L (0-10)
[2022-07-29 10:08] LABS: Alanine Aminotransferase 36 U/L (0-33); Albumin Level 3.7 g/dL (3.5-5.2); Alkaline Phosphatase 107 U/L (35-105); Anion Gap 13.9 (5-19); Aspartate Amino Transferase 23 U/L (0-32); Blood Urea Nitrogen 20 mg/dL (6-20); Calcium 9.1 mg/dL (8.5-10.5); Carbon Dioxide 25 mmol/L (22-29); Chloride 101 mmol/L (98-107); Globulin 2.8 g/dL (1.3-4.6); Glucose 136 mg/dL (65-115); Lipase 8 U/L (13-60); NT Pro B Type Natriuretic Pept 173 pg/mL (0-125); Osmolality Calculated 287 mOsm/kg (285-295); Potassium 3.9 mmol/L (3.5-5.1); Sodium 136 mmol/L (136-145); Total Bilirubin 0.5 mg/dL (0.15-1.2); Total Protein 6.5 g/dL (6.6-8.7)
--- NOTE | 2022-07-29 10:37 | ECG_ITS ---
[facility] Test Date: 2022-07-29 Pat Name: Nyasia Elkins Department: Room: Gender: Female Contact Center Consultant: : 1970 Requested By: Tyson Field Order Number: [id number] Kandi MD: Last Fulton M.D. Measurements Intervals [place] Rate: 64 P: 38 RI: 161 QRS: 47 QRSD: 84 T: 47 QT: 404 QTc: 420 Interpretive Statements SINUS RHYTHM Poor R wav eprogression Compared to ECG 04/17/2022 08:06:38 Sinus bradycardia no longer present Electronically Signed On 07-29-2022 21:06:19 SHALE PLANER OPERATOR by Last Fulton M.D. [id number]
[2022-07-29] MEDS: aspirin 81 mg Chew Tablet 324 MG PO (10:39)
[2022-07-29] MEDS: cefTRIAXone 1,000 MG in sodium chloride 0.9% (plus) 50 ML 100 MG IV (10:40)
[2022-07-29 11:27] LABS: Troponin 5 2HR 12.36 ng/L (0-10)
[2022-07-29 11:29] LABS: Troponin 5 2HR Delta -3.64 ABS# (0-10)
== END 2022-07-29 11:55 | disposition home or self-care (01) ==
PROVIDERS: Emergency Provider Physician Assistant; PCP Family Medicine
DX: R07.89 Other chest pain (principal); N30.01 Acute cystitis with hematuria; Z79.01 Long term (current) use of anticoagulants; Z79.84 Long term (current) use of oral hypoglycemic drugs; E11.9 Type 2 diabetes mellitus without complications; I10 Essential (primary) hypertension; E78.5 Hyperlipidemia, unspecified
CPT/HCPCS: 71045; 80053; 81001; 83690; 83880; 84484; 85025; 87077; 87086; 87186; 93005; 96365; 96375; 99285; J0696; J2270

== ENCOUNTER 2022-09-04 08:24 | Outpatient (CLI) | payer BC, MEDICAID, SELFPAY ==
--- NOTE | 2022-09-04 08:36 | MM_ITS ---
WS: [id number] BILATERAL SCREENING DIGITAL TOMOSYNTHESIS MAMMOGRAM WITH CAD HISTORY: Breast CA screening COMPARISON: 01/25/2019 and 11/18/2016 Bilateral CC and MLO views with tomosynthesis and synthetic mammography submitted. Computer aided det ection analyzed. Breast composition: There are scattered areas of fibroglandular density. No suspicious masses, microc alcifications or architectural distortion. Benign intramammary lymph nodes within each breast. MM/[place] [id number] IMPRESSION: BI-RADS: 2-Benign FOLLOW UP: 1 Year Follow-up
== END 2022-09-04 08:25 | disposition home or self-care (01) ==
PROVIDERS: PCP Family Medicine; Visit Provider Family Medicine
DX: Z12.31 Encounter for screening mammogram for malignant neoplasm of breast (principal)
CPT/HCPCS: 77063; 77067

== ENCOUNTER → 2022-09-08 08:48 | Outpatient (BNVA) | payer BC, MEDICAID, SELFPAY | PROVIDERS: PCP Family Medicine; Visit Provider Family Medicine | DX: E03.9 Hypothyroidism, unspecified (principal); E11.65 Type 2 diabetes mellitus with hyperglycemia; E78.5 Hyperlipidemia, unspecified; I10 Essential (primary) hypertension; G47.33 Obstructive sleep apnea (adult) (pediatric) | CPT/HCPCS: 80053; 80061; 84439; 84443 ==

== ENCOUNTER → 2022-11-20 11:28 | Outpatient (BNVA) | payer BC, MEDICAID, SELFPAY | PROVIDERS: PCP Family Medicine; Visit Provider Family Medicine | DX: E03.9 Hypothyroidism, unspecified (principal); E11.65 Type 2 diabetes mellitus with hyperglycemia; G47.33 Obstructive sleep apnea (adult) (pediatric); R30.0 Dysuria; M25.50 Pain in unspecified joint | CPT/HCPCS: 80053; 81000; 83036; 84439; 84443; 85027; 85651; 86038; 86431 ==

== ENCOUNTER 2023-02-23 12:24 | Emergency (ER) | payer BC, MEDICAID, SELFPAY ==
[2023-02-23 12:52] VITALS: BP 208/99; PULSE 52; RESP 16; TEMP 36.9; O2SAT 96; BMI 37.6
--- NOTE | 2023-02-23 13:40 | CT_ITS ---
WS: [id number] CT ABDOMEN PELVIS TECHNIQUE: Noncontrast CT of the abdomen and pelvis with coronal and sagittal reformatted images. CLINICAL INFORMATION: right sided/right flank pain COMPARISON: DLP: 1208.[address] scans at [facility] use at least one of these dose optimization techniques: automated e xposure control; mA and/or kV adjustment per patient size (includes targeted exams where dose is matc hed to clinical indication); or iterative reconstruction. FINDINGS: Lung bases are well aerated. Slight subpleural nodularity LEFT lower lobe. Calcified granulomas LEFT lower lobe. Mild diffuse fatty infiltration liver. Hepatomegaly. Cholecystectomy clips. Splenic granulomas. Fatty atrophy of the pancreas. Normal GE junction. Adrenal glands are normal. No hydronephrosis in either kidney. Bilateral calyceal tip calculi. No obstructing renal or ureteral calculi. Pelvic phleboliths. Normal caliber abdominal aorta. Normal sigmoid colon. Normal appendix in the RIGHT lower quadrant. No evidence of acute appendicitis. Small fat-containing umbilical hernia. Disc space narrowing worse L4 -L5 and L5-S1 vacuum disc phenomenon. CT/CT abdomen pelvis con [id number] IMPRESSION: 1. Normal appendix. No evidence of acute appendicitis. 2. Hepatomegaly with Diffuse fatty infiltration liver 3. Bilateral nonobstructing calyceal tip calculi. No obstructing renal or uret eral calculi. 4. No hydronephrosis in either kidney.
--- NOTE | 2023-02-23 13:42 | ED_ITS ---
HPI - Back Pain/Injury General: Chief Complaint: Back Pain/Injury Stated Complaint: side pain/back pain Time Seen by Provider: 02/23/23 13:27 Source: patient Mode of arrival: ambulatory Limitations: no limitations History of Present Illness: This 53-year-old female with a history of kidney stones presents to the ER with right-sided low back pain that radiates into the right groin. It started last night. It is associated with dysuria. Patient stated that she had to get up every hour to urinate. She has nausea but no vomiting. Patient has no fever, chest pain, shortness of breath or any other systemic symptoms. She has a history of kidney stones and is worried that this might be a stone. Associated symptoms: Deny chills or dysuria Review of Systems Const: Denies: chills, body aches or change in appetite Eyes: Denies: change in vision or eye discharge ENMT: Denies: throat pain, dental pain or nasal discharge Card: Denies: chest pain or lightheadedness GI: Reports: other (Right groin pain) : Denies: dysuria Musc: Reports: back pain (right side); Denies: neck pain Neuro: Denies: headache(s) or weakness in extremities Psych: Denies: depression Christopher/Lymph: Denies: easy bruising All/Imm: Denies: urticaria, tongue swelling or facial swelling PFSH ED PFSH: Medical History Adult hypothyroidism Afib Arthritis Atrial fibrillation Controlled type 2 diabetes mellitus with hyperglycemia, without long-term current use of insulin Gout, unspecified HTN (hypertension) Hyperlipidemia Hypothyroidism Myalgia Obesity (BMI 30.0-34.9) SUSAN (obstructive sleep apnea) PVD (peripheral vascular disease) Renal calculi Type 2 diabetes mellitus Ureterolithiasis Surgical History H/O cystoscopy 2014 History of cholecystectomy History of colonoscopy Endoscopy 2016 History of hysterectomy S/P cystoscopy with ureteral stent placement Family History Mother Thyroid condition Father Heart disease Other CAD (coronary artery disease) Cancer Diabetes Gout, unspecified Hypertension Stroke Social History Smoking and tobacco status: never smoked Smoking risk assessment/counseling performed?: No Alcohol intake: never Desire information about alcohol rehabilitation?: No Counseling given: No Substance/Drug Use: never Desire information about substance/drug rehabilitation?: No Counseling given: No Caregiver/support person: No Lives independently: Yes Household members: spouse Marital status: Number of children: 1 Current occupational status: disabled Female Reproductive History: Spontaneous abortions: No Physical Exam Const: COMMON NORMALS: no acute distress, patient oriented x3, no limitations and alert HENMT: COMMON NORMALS: normocephalic HEAD & SCALP: normocephalic Eye: COMMON NORMALS: EOMs intact bilaterally Neck/C-Spine: COMMON NORMALS: full ROM and supple Chest: COMMONS NORMALS: normal inspection of the chest Resp: COMMON NORMALS: normal respiratory effort, No retractions, No use of accessory muscles and clear to auscultation bilaterally AUSCULTATION: clear to auscultation bilaterally Cardio: COMMON NORMALS: regular rate, regular rhythm and No murmurs present (Cardio) RATE: regular rate RHYTHM: regular rhythm GI: COMMON NORMALS: Normal to inspection, nondistended, normoactive bowel sounds present OTHER: Minimal tenderness right lower quadrant/groin. : COMMON NORMALS: Yes no CVA tenderness BLADDER/KIDNEY EXAM: Yes no CVA tenderness Back/Pelvis: COMMON NORMALS: no CVA tenderness and no thoracic nor lumbar tenderness OTHER: Minimal tenderness right side of lower lumbar spine. Extremity: GENERAL: Yes normal exam except as noted Neuro: COMMON NORMALS: patient oriented x3 and no focal motor deficits SENSORIUM/ORIENTATION: Yes alert Psych: COMMON NORMALS: mental status grossly normal and cooperative Course Vital Signs: Vital signs: Vital Signs Temperature 98.4 F 02/23/23 12:52 Pulse Rate 45 L 02/23/23 15:15 Respiratory Rate 16 02/23/23 12:52 Blood Pressure 152/81 02/23/23 15:15 Pulse Oximetry 96 02/23/23 15:15 Oxygen Delivery Me thod Room Air 02/23/23 15:15 MDM - Back Pain/Injury Medical Decision Making Medical decision making: History as above. Patient's pain is primarily on the right side of the lower back. She has bilateral calyceal tip calculi. These are not responsible for her pain. UA is on remarkable. I believe her pain is due to musculoskeletal back pain. She will be treated symptomatically. Reasons to return were discussed. She verbalized understanding and agrees with the plan. Labs 02/23/23 14:15 02/23/23 14:15 Radiology Impressions Abdomen/Pelvis CT 02/23/23 13:40 IMPRESSION: 1. Normal appendix. No evidence of acute appendicitis. 2. Hepatomegaly with Diffuse fatty infiltration liver 3. Bilateral nonobstructing calyceal tip calculi. No obstructing renal or ureteral calculi. 4. No hydronephrosis in either kidney. Laboratory Results WBC 8.4 10^3/uL (4.0-10.0) 02/23/23 14:15 RBC 4.21 10^6/uL (4.1-5.3) 02/23/23 14:15 Hgb 11.8 g/dL (11.5-15.3) 02/23/23 14:15 Hct 37.1 % (37.0-47.0) 02/23/23 14:15 MCV 88.1 fl (81-99) 02/23/23 14:15 MCH 28.0 pg (28.0-34.0) 02/23/23 14:15 MCHC 31.8 g/dL (30.0-36.0) 02/23/23 14:15 RDW 13.2 % (12.1-15.1) 02/23/23 14:15 Plt Count 190 10^3/cmm (130-400) 02/23/23 14:15 MPV 10.4 fL (7.4-10.4) 02/23/23 14:15 Neut % (Auto) 52.7 % 02/23/23 14:15 Lymph % (Auto) 35.9 % 02/23/23 14:15 [place] % (Auto) 6.1 % 02/23/23 14:15 Eos % (Auto) 4.2 % 02/23/23 14:15 Baso % (Auto) 0.7 % 02/23/23 14:15 Neut # (Auto) 4.44 10^3/uL (1.8-7.7) 02/23/23 14:15 Lymph # (Auto) 3.0 10^3/uL (0.8-4.8) 02/23/23 14:15 [place] # (Auto) 0.5 10^3/uL (0.2-0.9) 02/23/23 14:15 Eos # (Auto) 0.4 10^3/uL (0.0-0.8) 02/23/23 14:15 Baso # (Auto) 0.1 10^3/uL (0.0-0.1) 02/23/23 14:15 Nucleated RBC % (auto) 0 % 02/23/23 14:15 Nucleated RBCs # 0.0 /100WBC 02/23/23 14:15 Sodium 140 mmol/L (136-145) 02/23/23 14:15 Potassium 3.8 mmol/L (3.5-5.1) 02/23/23 14:15 Chloride 104 mmol/L (98-107) 02/23/23 14:15 Carbon Dioxide 28 mmol/L (22-29) 02/23/23 14:15 Anion Gap 11.8 (5-19) 02/23/23 14:15 BUN 12 mg/dL (6-20) 02/23/23 14:15 Creatinine 1.0 mg/dL (0.5-0.9) H 02/23/23 14:15 GFR Calculation 57.8 mL/min (90-130) L 02/23/23 14:15 Glucose 90 mg/dL (65-115) 02/23/23 14:15 Calculated Osmolality 289 mOsm/kg (285-295) 02/23/23 14:15 Calcium 9.1 mg/dL (8.5-10.5) 02/23/23 14:15 Total Bilirubin 0.3 mg/dL (0.15-1.2) 02/23/23 14:15 AST 47 U/L (0-32) H 02/23/23 14:15 ALT 36 U/L (0-33) H 02/23/23 14:15 Alkaline Phosphatase 105 U/L (35-105) 02/23/23 14:15 Total Protein 7.0 g/dL (6.6-8.7) 02/23/23 14:15 Albumin 3.9 g/dL (3.5-5.2) 02/23/23 14:15 Globulin 3.1 g/dL (1.3-4.6) 02/23/23 14:15 Urine Color Yellow (Yellow) 02/23/23 13:59 Urine Appearance Clear (CLEAR) 02/23/23 13:59 Urine pH 6.5 (5-7) 02/23/23 13:59 Ur Specific [place] 1.010 (1.005-1.030) 02/23/23 13:59 Urine Protein Neg (Negative) 02/23/23 13:59 Urine Glucose (UA) Norm (Normal) 02/23/23 13:59 Urine Ketones Negative (Negative) 02/23/23 13:59 Urine Blood Neg (Negative) 02/23/23 13:59 Urine Nitrate Negative (Negative) 02/23/23 13:59 Urine Bilirubin Neg (Negative) 02/23/23 13:59 Urine Urobilinogen Norm mg/dL (Negative) 02/23/23 13:59 Ur Leukocyte Esterase Negative (Negative) 02/23/23 13:59 Discharge Plan Discharge Patient Disposition: Home Clinical Impression: Back pain, Bilateral kidney stones Condition: Stable Prescriptions: New tramadol 50 mg tablet 50 mg PO TID PRN (Reason: pain) Qty: 20 0RF No Action acetaminophen-codeine 300-15 mg tablet 1 tab PO BID PRN (Reason: pain) Qty: 14 0RF ibuprofen 200 mg tablet 200 mg PO Q6H PRN (Reason: Pain) pregabalin 100 mg capsule 100 mg PO BID Qty: 60 2RF Flonase Allergy Relief 50 mcg/actuation spray,suspension 2 spray INTRANASAL DAILY PRN (Reason: Allergy Symptoms) Rx Instructions: administer into each nostril Narcan 4 mg/actuation [place],Non-Aerosol 1 spray INTRANASAL Q3M PRN (Reason: Opioid Overdose) Rx Instructions: spray 1 dose into ONE nostril; alternate nostrils w each dose until help arrives glipizide 10 mg tablet 10 mg PO BID levothyroxine 75 mcg tablet 75 mcg PO DAILY potassium citrate 10 mEq (1,080 mg) tablet extended release 10 meq PO TID lisinopril 40 mg tablet 40 mg PO DAILY Eliquis 5 mg tablet 5 mg PO BID loratadine 10 mg Tablet 10 mg PO QAM magnesium 200 mg Tablet 400 mg PO DAILY Discharge Orders: Discharge ED (Routine); Ordered 02/23/23 Ordered By: Brianda Hartman Referrals: Tc Camacho DO [Primary Care Provider] - Discharge Diet: Usual diet Discharge Activity: Resume usual activity Patient Instructions: Opioid Safety, Pain Management Activity Restrictions/Additional Instructions: Take tramadol as needed for pain. Maintain adequate fluid intake. Follow-up with your primary care physician within a week. Return with new or worsening symptoms. Coding Level of Care Code ED Restaurant Inspector for Neeru Okeefe
[2023-02-23 14:07] LABS: Add Urine Microscopic? NO; Charge for UA Resulting for Rev
[2023-02-23 14:14] LABS: Bilirubin Urine Neg (Negative); Blood Urine Neg (Negative); Glucose Urine UA Norm (Normal); Ketones Urine Negative (Negative); Leukocyte Esterase Urine Negative (Negative); Nitrate Urine Negative (Negative); Protein Urine Neg (Negative); Urine Appearance Clear (CLEAR); Urine Color Yellow (Yellow); Urobilinogen Urine Norm (Negative); pH Urine 6.5 (5-7)
[2023-02-23] MEDS: ketorolac 60 mg/2 mL INJ IM (14:19)
[2023-02-23 14:21] VITALS: BP 162/114; PULSE 50; O2SAT 100
[2023-02-23 14:26] LABS: Basophils # 0.1 10^3/uL (0.0-0.1); Basophils % 0.7 %; Eosinophils # 0.4 10^3/uL (0.0-0.8); Eosinophils % 4.2 %; Hematocrit 37.1 % (37.0-47.0); Hemoglobin 11.8 g/dL (11.5-15.3); Lymphocytes % 35.9 %; Mean Corpuscular HGB Conc 31.8 g/dL (30.0-36.0); Mean Corpuscular Volume 88.1 fl (81-99); Mean Platelet Volume 10.4 fL (7.4-10.4); Monocytes # 0.5 10^3/uL (0.2-0.9); Monocytes % 6.1 %; Neutrophils # 4.44 10^3/uL (1.8-7.7); Neutrophils % 52.7 %; Nucleated Red Blood Cells % 0 %; Platelet Count 190 10^3/cmm (130-400); Red Blood Count 4.21 10^6/uL (4.1-5.3); Red Cell Distribution Width 13.2 % (12.1-15.1); White Blood Count 8.4 10^3/uL (4.0-10.0)
[2023-02-23 14:41] LABS: Alanine Aminotransferase 36 U/L (0-33); Albumin Level 3.9 g/dL (3.5-5.2); Alkaline Phosphatase 105 U/L (35-105); Anion Gap 11.8 (5-19); Aspartate Amino Transferase 47 U/L (0-32); Blood Urea Nitrogen 12 mg/dL (6-20); Calcium 9.1 mg/dL (8.5-10.5); Carbon Dioxide 28 mmol/L (22-29); Chloride 104 mmol/L (98-107); Globulin 3.1 g/dL (1.3-4.6); Glomerular Filtration Rate 57.8 mL/min (90-130); Glucose 90 mg/dL (65-115); Osmolality Calculated 289 mOsm/kg (285-295); Potassium 3.8 mmol/L (3.5-5.1); Sodium 140 mmol/L (136-145); Total Bilirubin 0.3 mg/dL (0.15-1.2)
[2023-02-23 15:15] VITALS: BP 152/81; PULSE 45; O2SAT 96
[2023-02-23 17:14] VITALS: BP 171/91; PULSE 50; O2SAT 99
== END 2023-02-23 17:15 | disposition home or self-care (01) ==
PROVIDERS: Emergency Provider Family Medicine; PCP Family Medicine
DX: M54.50 Low back pain, unspecified (principal); N20.0 Calculus of kidney; Z87.442 Personal history of urinary calculi
CPT/HCPCS: 36415; 74176; 80053; 81003; 85025; 96372; 99284; J1885

== ENCOUNTER → 2023-03-05 14:06 | Outpatient (BNVA) | payer BC, MEDICAID, SELFPAY | PROVIDERS: PCP Family Medicine; Visit Provider Internal Medicine | DX: R76.8 Other specified abnormal immunological findings in serum (principal); M19.041 Primary osteoarthritis, right hand; M17.11 Unilateral primary osteoarthritis, right knee | CPT/HCPCS: 36415; 73120; 73560; 81003; 82306; 82533; 82550; 82728; 83516; 83540; 83735; 84439; 84443; 85651; 86140; 86160; 86162; 86235; 86255; 86376; 86704; 86803; 87340 ==

== ENCOUNTER → 2023-03-18 10:13 | Outpatient (BNVA) | payer BC, MEDICAID, SELFPAY | PROVIDERS: PCP Family Medicine; Visit Provider Internal Medicine | DX: R76.8 Other specified abnormal immunological findings in serum (principal); N18.9 Chronic kidney disease, unspecified; M25.50 Pain in unspecified joint; M47.896 Other spondylosis, lumbar region | CPT/HCPCS: 36415; 72100; 82607; 82784; 83516; 84425; 85651; 86140; 86200; 86704; 86803; 87340 ==

== ENCOUNTER 2023-05-28 20:00 | Outpatient (CLI) | payer BC, MEDICAID, SELFPAY | END 2023-05-28 20:01 | disposition home or self-care (01) | LOC: SLEEP 05-29 04:11 | PROVIDERS: PCP Family Medicine; Visit Provider Nurse Practitioner Family | DX: G47.33 Obstructive sleep apnea (adult) (pediatric) (principal); I48.91 Unspecified atrial fibrillation; I10 Essential (primary) hypertension; E66.9 Obesity, unspecified; R00.1 Bradycardia, unspecified; R55 Syncope and collapse | CPT/HCPCS: 95810 ==

== ENCOUNTER → 2023-06-18 15:00 | Outpatient (BNVA) | payer BC, MEDICAID, SELFPAY | PROVIDERS: PCP Family Medicine; Visit Provider Family Medicine | DX: K21.9 Gastro-esophageal reflux disease without esophagitis (principal); E11.65 Type 2 diabetes mellitus with hyperglycemia; E78.5 Hyperlipidemia, unspecified; I10 Essential (primary) hypertension | CPT/HCPCS: 80053; 83036; 84439; 84443; 85025 ==

== ENCOUNTER → 2023-09-02 14:55 | Outpatient (BNVA) | payer BC, MEDICAID, SELFPAY | PROVIDERS: PCP Family Medicine; Visit Provider Internal Medicine | DX: R76.8 Other specified abnormal immunological findings in serum (principal); M25.811 Other specified joint disorders, right shoulder; M17.11 Unilateral primary osteoarthritis, right knee; M25.511 Pain in right shoulder; M25.561 Pain in right knee | CPT/HCPCS: 73030; 73560 ==

== ENCOUNTER → 2023-10-01 10:16 | Outpatient (BNVA) | payer BC, MEDICAID, SELFPAY | PROVIDERS: PCP Family Medicine; Visit Provider Family Medicine | DX: K90.0 Celiac disease (principal); A04.8 Other specified bacterial intestinal infections; K21.9 Gastro-esophageal reflux disease without esophagitis; I48.91 Unspecified atrial fibrillation; E78.5 Hyperlipidemia, unspecified; E11.65 Type 2 diabetes mellitus with hyperglycemia; E03.9 Hypothyroidism, unspecified; N18.9 Chronic kidney disease, unspecified; M10.9 Gout, unspecified; E11.9 Type 2 diabetes mellitus without complications; E83.39 Other disorders of phosphorus metabolism; E55.9 Vitamin D deficiency, unspecified; E83.42 Hypomagnesemia; I48.0 Paroxysmal atrial fibrillation | CPT/HCPCS: 80053; 80061; 82306; 82607; 83036; 83735; 84100; 84439; 84443; 84481; 84550; 85025; 86140 ==

== ENCOUNTER 2023-10-28 09:28 | Day surgery (SDC) | payer BC, MEDICAID, SELFPAY ==
--- NOTE | 2023-10-28 09:40 | P.ANESASSM_ITS ---
Pre-Anesthetic Assessment Height/Weight: Height 1.8 m Preop Diagnosis: Gerd screening Operation Date: 10/28/23 10:30 Proposed Procedures p 85201 egd [id number] colon G0121 screen colon A risk K21.9,Z12.11(Not Applicable) - DO omero Dumont Colonoscopy(Not Applicable) - Jeffery Uriarte DO Familial anesthetic complications: None Was Beta Po taken within 24 hours: N/A Was Clonidine taken within 24 hours: N/A Last Intake: 00:00 Social No alcohol and No tobacco occassional as teen not daily pack(s) per day Exam alert, oriented x 3, clear to auscultation bilaterally and regular rate & rhythm Airway Submandibular: within normal limits Cervical ROM: within normal limits Mallampati: Class II Comments: Comments: denies problem History/ROS No significant history except as noted Pulmonary Sleep Apnea Dosent use CPAP regual CV/HEM Atrial Fibrillation, Arrythmia, Hypertension and Peripheral Vascular Disease None reported Hepatic None reported GI Gastroesophageal Reflux Disease controlled with medication Metabolic Diabetes Mellitus uses sliding scale insulin as needed Musc/skel Osteoarthritis/DJD Neuropsych Anxiety Anesthetic Plan ASA status: 3 Anesthesia: Anesthesia Evaluation and MAC Risk of > 500 ml blood loss (7ml/kg in children): No Medications/Allergies Home Medications Medication Instructions Recorded Confirmed Last Taken Type loratadine 10 mg tablet 10 mg PO QAM 04/17/22 10/26/23 10/27/23 History magnesium 200 mg tablet 400 mg PO DAILY 04/17/22 10/26/23 10/27/23 History naloxone 4 mg/actuation nasal 1 spray intranasal Q3M PRN Opioid 02/23/23 10/26/23 Unknown History spray (Narcan) Overdose diclofenac sodium 1 % topical gel 4 g topical QID #100 grams 03/18/23 10/26/23 Unknown Rx (Arthritis Pain (diclofenac)) potassium citrate 10 mEq (1,080 10 meq PO TID #90 tabs 03/19/23 10/26/23 10/26/23 Rx mg) tablet,extended release fluticasone propionate 50 2 spray intranasal DAILY PRN 05/14/23 10/26/23 Unknown Rx mcg/actuation nasal Allergy Symptoms #18.2 mL spray,suspension (Flonase Allergy Relief) spironolactone 25 mg tablet 25 mg PO DAILY #90 tabs 09/10/26/23 10/27/23 Rx glucometer, diabetes supplies #1 ea 06/18/23 10/28/23 Unknown Rx insulin glargine 100 unit/mL (3 10 unit (0.1 mL) SUBCUT DAILY #15 07/09/23 10/26/23 Unknown Rx mL) subcutaneous pen (Lantus mL Solostar U-100 Insulin) levothyroxine 75 mcg tablet 75 mcg PO DAILY #90 tabs 07/20/23 10/26/23 10/27/23 Rx lisinopril 40 mg tablet 40 mg PO DAILY #90 tabs 07/20/23 10/26/23 10/27/23 Rx apixaban 5 mg tablet (Eliquis) 5 mg PO BID #60 tabs 07/23/23 10/26/23 10/25/23 Rx glipizide 10 mg tablet 10 mg PO BID #60 tabs 07/23/23 10/26/23 10/27/23 Rx pregabalin 100 mg capsule 100 mg PO BID #60 caps 07/23/23 10/26/23 10/27/23 Rx meloxicam 15 mg tablet 15 mg PO DAILY #30 tabs 09/03/23 10/26/23 10/26/23 Rx cholecalciferol (vitamin D3) 1,250 50,000 unit PO .qweek #14 caps 10/01/23 10/26/23 10/24/23 Rx mcg (50,000 unit) capsule pantoprazole 40 mg tablet,delayed 40 mg PO BID 6 weeks #84 tabs 10/14/23 10/26/23 10/27/23 Rx release (Protonix) rosuvastatin 5 mg tablet (Crestor) 5 mg PO DAILY 10/14/23 10/26/23 10/27/23 History Allergies Allergy/AdvReac Type Severity Reaction Status Date / Time codeine Allergy Unknown Unknown Verified 10/14/23 12:48 iodine Allergy Unknown Unknown Verified 10/14/23 12:48 tizanidine Allergy Unknown Unknown Verified 10/14/23 12:48 escitalopram [From Lexapro] Allergy Unknown Verified 10/14/23 12:48 fluoxetine [From Prozac] Allergy rash Verified 10/14/23 12:48 povidone-iodine Allergy rash Verified 10/14/23 12:48 [From Betadine] soap [From Betadine] Allergy rash Verified 10/14/23 12:48 [facility] Anesthesia Medical History CRP elevated Celiac disease SUSAN (obstructive sleep apnea) Arthritis Ureterolithiasis Myalgia PVD (peripheral vascular disease) Renal calculi Gout, unspecified Obesity (BMI 30.0-34.9) Hypothyroidism Type 2 diabetes mellitus Afib Adult hypothyroidism Controlled type 2 diabetes mellitus with hyperglycemia, without long-term current use of insulin Atrial fibrillation HTN (hypertension) Hyperlipidemia Surgical History S/P cystoscopy with ureteral stent placement History of cholecystectomy History of colonoscopy Endoscopy 2016 History of hysterectomy H/O cystoscopy 2014 Family History Mother Thyroid disease Father Heart disease Other CAD (coronary artery disease) Cancer Diabetes Gout, unspecified Hypertension Stroke Social History Smoking and tobacco/nicotine status: never used tobacco/nicotine Alcohol intake: current Alcohol intake frequency: holidays/special occasions only Substance/Drug Use: never Caregiver/support person: No Lives independently: Yes Household members: spouse Marital status: Number of children: 1 Current occupational status: disabled Female Reproductive History Spontaneous abortions: No Data Anesthesia Cardiac Studies: Echocardiogram 04/18/22 Echocardiogram Ultrasound 09/09/20 Cardiac Event Monitor 09/28/20
[2023-10-28 09:43] VITALS: BP 141/88; PULSE 61; RESP 18; TEMP 36.6; O2SAT 99; BMI 36.9
[2023-10-28] MEDS: sodium chloride 0.9% 1,000 ML 30 ML IV (09:46)
--- NOTE | 2023-10-28 09:50 | W.PM.OPSUD ---
Surgery/Procedure H&P Update DATE OF PROCEDURE: October 28, 2023 DATE H&P PERFORMED: 10/14/23 H&P UPDATE INFORMATION: I have reviewed H&P completed within last 30 days, I have examined patient prior to procedure and No changes to prior documentation PREOP DIAGNOSIS: Gerd screening PLANNED PROCEDURE: Operation Date: 10/28/23 10:30 Proposed Procedures p 76203 egd [id number] colon G0121 screen colon A risk K21.9,Z12.11(Not Applicable) - DO omero Dumont Colonoscopy(Not Applicable) - Jeffery Uriarte DO
[2023-10-28 09:51] LABS: Glucose Point of Care 141 mg/dL (70-110)
[2023-10-28 10:30] VITALS: BP 129/74; PULSE 64; RESP 18; TEMP 36.3; O2SAT 95
[2023-10-28 10:50] VITALS: BP 178/88; PULSE 53; RESP 16; O2SAT 98
--- NOTE | 2023-10-28 11:00 | ANE.PACU2 ---
Inpatient post-anesthesia follow up: Airway intact: Yes Vital signs: Temperature 97.4 F Pulse Rate 53 Respiratory Rate 16 Blood Pressure 178/88 Pulse Oximetry 98 Oxygen Delivery Me thod Room Air Oxygen Flow Rate Fraction of Inspir ed Oxygen Hydration adequate: Yes Nausea and vomiting: No Pain level: 1 Mental status: Baseline
== END 2023-10-28 11:03 | disposition home or self-care (01) ==
PROVIDERS: PCP Family Medicine; Visit Provider Surgery
PROC: 0DJ08ZZ Inspection of Upper Intestinal Tract, Via Natural or Artificial Opening Endoscopic (ICD-10-PCS; CPT 43235; principal; 2023-10-28 10:30)
PROC: 0DJD8ZZ Inspection of Lower Intestinal Tract, Via Natural or Artificial Opening Endoscopic (ICD-10-PCS; CPT 45378; 2023-10-28 10:30)
DX: Z12.11 Encounter for screening for malignant neoplasm of colon (principal); K21.9 Gastro-esophageal reflux disease without esophagitis; K29.50 Unspecified chronic gastritis without bleeding; G47.30 Sleep apnea, unspecified; I48.91 Unspecified atrial fibrillation; I10 Essential (primary) hypertension; Z79.4 Long term (current) use of insulin; M19.90 Unspecified osteoarthritis, unspecified site; G47.33 Obstructive sleep apnea (adult) (pediatric); E66.9 Obesity, unspecified; Z68.37 Body mass index [BMI] 37.0-37.9, adult; E03.9 Hypothyroidism, unspecified; E11.65 Type 2 diabetes mellitus with hyperglycemia; E78.5 Hyperlipidemia, unspecified
CPT/HCPCS: 36416; 43239; 45378; 82962; 88305; J2704; J7030

== ENCOUNTER → 2023-11-25 15:30 | Outpatient (BNVA) | payer BC, MEDICAID, SELFPAY | PROVIDERS: PCP Nurse Practitioner Family; Visit Provider Nurse Practitioner Family | DX: R76.8 Other specified abnormal immunological findings in serum (principal) | CPT/HCPCS: 80053; 82306; 82607; 83735; 84443; 84550; 85025; 85651; 86140; 86160; 86162; 86200; 86235; 86255; 86376; 86431 ==

== ENCOUNTER → 2024-01-06 10:38 | Outpatient (BNVA) | payer BC, MEDICAID, SELFPAY | PROVIDERS: PCP Nurse Practitioner Family; Visit Provider Nurse Practitioner Family | DX: R76.8 Other specified abnormal immunological findings in serum (principal); E11.65 Type 2 diabetes mellitus with hyperglycemia; E11.9 Type 2 diabetes mellitus without complications; Z79.4 Long term (current) use of insulin | CPT/HCPCS: 80053; 80061; 82043; 83036; 85025 ==

== ENCOUNTER → 2024-01-14 08:54 | Outpatient (BNVA) | payer BC, MEDICAID, SELFPAY | PROVIDERS: PCP Nurse Practitioner Family; Visit Provider Nurse Practitioner Family | DX: N17.9 Acute kidney failure, unspecified (principal) | CPT/HCPCS: 80053 ==

== ENCOUNTER 2024-01-17 08:06 | Emergency (ER) | payer BC, MEDICAID, SELFPAY ==
--- NOTE | 2024-01-17 08:15 | ECG_ITS ---
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 Measurements Intervals [place] Rate: 54 P: 33 NE: 176 QRS: 32 QRSD: 80 T: 45 QT: 408 QTc: 388 Interpretive Statements SINUS BRADYCARDIA LOW QRS VOLTAGE IN PRECORDIAL LEADS [QRS DEFLECTION < 1.0 mV IN CHEST LEADS] SEPTAL MYOCARDIAL INFARCTION , OF INDETERMINATE AGE [40+ ms Q WAVE IN V1/V2] Compared to ECG 07/29/2022 11:03:14 Low QRS voltage now present Myocardial infarct finding now present Sinus rhythm no longer present Electronically Signed On 01-17-2024 22:43:35 CDT by Last Fulton M.D. [email or web address]
--- NOTE | 2024-01-17 08:15 | XRR_ITS ---
PROCEDURE INFORMATION: Exam: XR Chest Exam date and time: 01/17/2024 8:28 AM Age: 53 years old Clinical indication: Cardiovascular condition or disease; Atrial fibrillation; Patient HX: History of a fib, patient states symptoms of palpitations for 1 hour prior to coming into er TECHNIQUE: Imaging protocol: Radiologic exam of the chest. Views: 1 view. COMPARISON: CR XR chest 1V portable [id number] 07/29/2022 9:49 AM FINDINGS: Lungs: Unremarkable. No consolidation. Pleural spaces: Unremarkable. No pleural effusion. No pneumothorax. Heart/Mediastinum: Unremarkable. No cardiomegaly. Bones/joints: Unremarkable. XR/XR chest 1V portable [id number] IMPRESSION: No acute findings.
[2024-01-17 08:24] VITALS: BP 129/82; PULSE 52; TEMP 36.7; O2SAT 99; BMI 37.3
--- NOTE | 2024-01-17 08:39 | ED_ITS ---
HPI - Arrhythmia/Palpitations 2 General: Chief Complaint: Arrhythmia/Palpitations Stated Complaint: has afib (feels like heart isnt beating right) Time Seen by Provider: 01/17/24 08:09 Source: patient Mode of arrival: ambulatory Limitations: no limitations History of Present Illness: 53-year-old female has a history of A-fi b she states that this morning when she stood up she felt like her heart was pounding and racing and had some slight pressure pain. She states that since resolved she denies any fevers or shortness of breath. States this happened roughly 2 hours ago. She is not in A-fib here. Associated symptoms: Deny nausea or vomiting Review of Systems 2 Const: Denies: fever(s), chills, body aches or change in appetite ENMT: Denies: throat pain or dental pain Card: Reports: chest pain and palpitations Resp: Denies: dyspnea GI: Denies: abdominal pain, nausea, vomiting or diarrhea Musc: Denies: neck pain or back pain Skin/Breast: Denies: rash Neuro: Denies: headache(s) PFSH ED 2 PFSH: Medical History Vitamin D deficiency SUSAN (obstructive sleep apnea) Arthritis Ureterolithiasis PVD (peripheral vascular disease) Gout, unspecified Hypothyroidism Type 2 diabetes mellitus Atrial fibrillation Hyperlipidemia Surgical History S/P cystoscopy with ureteral stent placement History of cholecystectomy History of colonoscopy Endoscopy 2016 History of hysterectomy H/O cystoscopy 2014 Family History Mother Thyroid disease Father Heart disease Other CAD (coronary artery disease) Cancer Diabetes Gout, unspecified Hypertension Stroke Social History Smoking and tobacco/nicotine status: former use of tobacco/nicotine Alcohol intake: current Alcohol intake frequency: holidays/special occasions only Substance/Drug Use: never Caregiver/support person: No Lives independently: Yes Household members: spouse Marital status: Number of children: 1 Current occupational status: disabled Female Reproductive History: Spontaneous abortions: No Physical Exam 2 Const: COMMON NORMALS: no acute distress, patient oriented x3 and healthy appearing HENMT: COMMON NORMALS: normocephalic and atraumatic HEAD & SCALP: n ormocephalic and atraumatic Eye: COMMON NORMALS: Equal, round and reactive pupils present and EOMs intact bilaterally PUPIL: Yes Equal, round and reactive pupils present Neck/C-Spine: COMMON NORMALS: full ROM and supple Chest: COMMONS NORMALS: normal inspection of the chest and normal palpation of entire chest wall Resp: COMMON NORMALS: normal respiratory effort, No retractions, No use of accessory muscles and clear to auscultation bilaterally AUSCULTATION: clear to auscultation bilaterally Cardio: COMMON NORMALS: regular rate, regular rhythm and No murmurs present (Cardio) RATE: regular rate RHYTHM: regular rhythm Extremity: COMMON NORMALS: normal to inspection and full ROM Neuro: COMMON NORMALS: patient oriented x3, moves all extremities and no focal motor deficits Psych: COMMON NORMALS: mental status grossly normal, Normal thought process present and cooperative THOUGHT PROCESS: Normal thought process present Skin: COMMON NORMALS: no rashes or lesions noted and no wounds GENERAL SKIN EXAM: no rashes or lesions noted Course 2 Vital Signs: Vital signs: Vital Signs Temperature 98.1 F 01/17/24 08:24 Pulse Rate 42 L 01/17/24 09:42 Respiratory Rate 17 01/17/24 09:42 Blood Pressure 153/83 01/17/24 08:46 Pulse Oximetry 100 01/17/24 09:42 Oxygen Delivery Me thod Room Air 01/17/24 09:42 MDM - Arrhythmia/Palpitations Medical Decision Making Patient presents here with chest pains atypical in nature her troponins here have been normal she been pain-free here she is follow-up with her software development test engineer return if worsening she understands agrees to plan. Medical Records I reviewed the patient's medical records. Lab Data I reviewed the patient's lab results. 01/17/24 08:47 01/17/24 08:47 Radiology Impressions Chest X-Ray 01/17/24 08:15 IMPRESSION: No acute findings. Laboratory Results WBC 6.04 10^3/uL (3.29-11.43) 01/17/24 08:47 RBC 3.82 10^6/uL (3.85-5.65) L 01/17/24 08:47 Hgb 11.20 g/dL (11.27-16.99) L 01/17/24 08:47 Hct 35.4 % (36-47) L 01/17/24 08:47 MCV 92.7 fl (85-98) 01/17/24 08:47 MCH 29.3 pg (27-33) 01/17/24 08:47 MCHC 31.6 g/dL (30-55) 01/17/24 08:47 RDW 13.2 % (12.1-15.1) 01/17/24 08:47 Plt Count 178 10^3/cmm (157-399) 01/17/24 08:47 MPV 10.7 fL (7.4-10.4) H 01/17/24 08:47 Neut % (Auto) 53.4 % 01/17/24 08:47 Lymph % (Auto) 34.9 % 01/17/24 08:47 [place] % (Auto) 5.6 % 01/17/24 08:47 Eos % (Auto) 4.8 % 01/17/24 08:47 Baso % (Auto) 1.0 % 01/17/24 08:47 Neut # (Auto) 3.22 10^3/uL (1.8-7.7) 01/17/24 08:47 Lymph # (Auto) 2.1 10^3/uL (0.8-4.8) 01/17/24 08:47 [place] # (Auto) 0.3 10^3/uL (0.2-0.9) 01/17/24 08:47 Eos # (Auto) 0.3 10^3/uL (0.0-0.8) 01/17/24 08:47 Baso # (Auto) 0.1 10^3/uL (0.0-0.1) 01/17/24 08:47 Nucleated RBC % (auto) 0 % 01/17/24 08:47 Nucleated RBCs # 0.0 /100WBC 01/17/24 08:47 PT 17.70 SECONDS (12.1-14.9) H 01/17/24 08:47 INR 1.41 (0.8-1.2) H 01/17/24 08:47 Sodium 145 mmol/L (136-145) 01/17/24 08:47 Potassium 4.4 mmol/L (3.5-5.1) 01/17/24 08:47 Chloride 111 mmol/L (98-107) H 01/17/24 08:47 Carbon Dioxide 22 mmol/L (22-29) 01/17/24 08:47 Anion Gap 16.4 (5-19) 01/17/24 08:47 BUN 24 mg/dL (6-20) H 01/17/24 08:47 Creatinine 1.3 mg/dL (0.5-0.9) H 01/17/24 08:47 GFR Calculation 42.7 mL/min (90-130) L 01/17/24 08:47 Glucose 145 mg/dL (65-115) H 01/17/24 08:47 Calculated Osmolality 307 mOsm/kg (285-295) H 01/17/24 08:47 Calcium 8.3 mg/dL (8.5-10.5) L 01/17/24 08:47 Total Bilirubin 0.2 mg/dL (0.15-1.2) 01/17/24 08:47 AST 49 U/L (0-32) H 01/17/24 08:47 ALT 37 U/L (0-33) H 01/17/24 08:47 Alkaline Phosphatase 86 U/L (35-105) 01/17/24 08:47 Troponin T Baseline 15 ng/L (0-10) H 01/17/24 08:47 Troponin T 120 Minute 15.99 ng/L (0-10) H 01/17/24 10:42 Delta Troponin T 0.99 ABS# (0-10) 01/17/24 10:42 Total Protein 6.0 g/dL (6.6-8.7) L 01/17/24 08:47 Albumin 3.7 g/dL (3.5-5.2) 01/17/24 08:47 Globulin 2.3 g/dL (1.3-4.6) 01/17/24 08:47 All radiology interpretation(s) finalized by discharge EKG Data EKG 1: I personally reviewed and interpreted this EKG as follows: EKG interpretation date: 01/17/24 EKG interpretation time: 08:22 Interpretation: sinus sabina hr [address] or t wave abnormalities qrs 80 qtc 393 Other EKG comments: Chest X-Ray 01/17/24 08:15 IMPRESSION: No acute findings. Discharge Plan Discharge Patient Disposition: Home Clinical Impression: Chest pain Condition: Stable Prescriptions: No Action pregabalin 100 mg capsule 100 mg PO BID Qty: 60 5RF Eliquis 5 mg tablet 5 mg PO BID Qty: 60 5RF Hold Instructions: Resume on 10/30/23. glipizide 10 mg tablet 10 mg PO BID Qty: 60 5RF rosuvastatin [Crestor] 5 mg tablet 5 mg PO DAILY pantoprazole [Protonix] 40 mg tablet,delayed release (DR/EC) 40 mg PO BID 42 Days Qty: 84 1RF neomycin-polymyxin B-dexameth [Maxitrol] 3.5mg/mL-10,000 unit/mL-0.1 % drops,suspension 2 drp ophthalmic (eye) Q12H 7 Days Qty: 5 0RF meloxicam 15 mg tablet 15 mg PO DAILY Qty: 30 5RF Hold Instructions: Resume on 10/30/23. Rx Instructions: Do not take Ibuprofen, aleve or other NSAIDs while using this medication. May use Tylenol. (DME) glucometer, diabetes supplies See Rx Instructions .Route .MEDSUPPLY Qty: 1 11RF Rx Instructions: Please issue glucometer, lancets, alcohol prep pads, solution and any other testing supplies. Flonase Allergy Relief 50 mcg/actuation spray,suspension 2 spray INTRANASAL DAILY PRN (Reason: Allergy Symptoms) Qty: 18.2 2RF Rx Instructions: administer into each nostril (DME) Blood Glucose Test Strip See Rx Instructions .MEDSUPPLY Qty: 300 12RF Rx Instructions: Use as directed with glucometer to check blood sugar three times daily (DME) lancets Misc See Rx Instructions .MEDSUPPLY Qty: 300 12RF Rx Instructions: Use as directed to prick skin for blood sugar checks three times daily (DME) diabetic shoes with 3 inserts See Rx Instructions .Route .MEDSUPPLY Qty: 1 0RF Rx Instructions: As directed losartan 25 mg tablet 25 mg PO DAILY levothyroxine 75 mcg tablet 75 mcg PO DAILY Qty: 90 1RF spironolactone 25 mg tablet 25 mg PO DAILY Qty: 90 1RF cholecalciferol (vitamin D3) 1,250 mcg (50,000 unit) capsule 50,000 unit PO Q7D Lantus Solostar U-100 Insulin 100 unit/mL (3 mL) insulin pen 15 unit SUBCUT QPM loratadine 10 mg Tablet 10 mg PO QAM Discharge Orders: Discharge ED (Routine); Ordered 01/17/24 Ordered By: Rashawn Cook Referrals: Bethel Ng MD [Primary Care Provider] - 4-7 days Discharge Diet: Advance as tolerated Discharge Activity: Use walker/crutches as instructed Patient Instructions: Chest Pain (ED) Coding Level of Care Code ED Parts Advisor for Neeru Okeefe
[2024-01-17 08:46] VITALS: BP 153/83; PULSE 50; RESP 18; O2SAT 98
[2024-01-17] MEDS: sodium chloride 0.9% 1,000 ML 999 ML IV (08:54)
[2024-01-17 09:01] LABS: Basophils # 0.1 10^3/uL (0.0-0.1); Eosinophils # 0.3 10^3/uL (0.0-0.8); Eosinophils % 4.8 %; Hematocrit 35.4 % (36-47); Lymphocytes # 2.1 10^3/uL (0.8-4.8); Lymphocytes % 34.9 %; Mean Corpuscular HGB Conc 31.6 g/dL (30-55); Mean Corpuscular Hemoglobin 29.3 pg (27-33); Mean Corpuscular Volume 92.7 fl (85-98); Mean Platelet Volume 10.7 fL (7.4-10.4); Monocytes # 0.3 10^3/uL (0.2-0.9); Monocytes % 5.6 %; Neutrophils # 3.22 10^3/uL (1.8-7.7); Neutrophils % 53.4 %; Nucleated Red Blood Cells % 0 %; Platelet Count 178 10^3/cmm (157-399); Red Blood Count 3.82 10^6/uL (3.85-5.65); Red Cell Distribution Width 13.2 % (12.1-15.1); White Blood Count 6.04 10^3/uL (3.29-11.43)
[2024-01-17 09:13] LABS: INR 1.41 (0.8-1.2)
[2024-01-17 09:19] LABS: Troponin(5th) Baseline 15 ng/L (0-10)
[2024-01-17 09:42] VITALS: PULSE 42; RESP 17; O2SAT 100
[2024-01-17 09:59] LABS: Alanine Aminotransferase 37 U/L (0-33); Albumin Level 3.7 g/dL (3.5-5.2); Alkaline Phosphatase 86 U/L (35-105); Anion Gap 16.4 (5-19); Aspartate Amino Transferase 49 U/L (0-32); Blood Urea Nitrogen 24 mg/dL (6-20); Calcium 8.3 mg/dL (8.5-10.5); Carbon Dioxide 22 mmol/L (22-29); Chloride 111 mmol/L (98-107); Globulin 2.3 g/dL (1.3-4.6); Glomerular Filtration Rate 42.7 mL/min (90-130); Glucose 145 mg/dL (65-115); Osmolality Calculated 307 mOsm/kg (285-295); Potassium 4.4 mmol/L (3.5-5.1); Sodium 145 mmol/L (136-145); Total Bilirubin 0.2 mg/dL (0.15-1.2)
[2024-01-17 10:07] LABS: Creatinine Clr Calc Pharmacy 71.1516
[2024-01-17 11:05] LABS: Troponin 5 2HR 15.99 ng/L (0-10); Troponin 5 2HR Delta 0.99 ABS# (0-10)
[2024-01-17 11:39] VITALS: BP 135/71; PULSE 46; RESP 16; O2SAT 100
== END 2024-01-17 11:40 | disposition home or self-care (01) ==
PROVIDERS: Emergency Provider Emergency Medicine; PCP Family Medicine
DX: R07.9 Chest pain, unspecified (principal); Z79.01 Long term (current) use of anticoagulants; Z79.84 Long term (current) use of oral hypoglycemic drugs; Z79.4 Long term (current) use of insulin; Z87.891 Personal history of nicotine dependence
CPT/HCPCS: 36415; 71045; 80053; 84484; 85025; 85610; 93005; 96360; 99285; J7030

== ENCOUNTER → 2024-03-02 10:14 | Outpatient (BNVA) | payer BC, MEDICAID, SELFPAY | PROVIDERS: PCP Family Medicine; Referring Provider Nurse Practitioner Family; Visit Provider Specialist | DX: M17.0 Bilateral primary osteoarthritis of knee (principal) | CPT/HCPCS: 73560; 73565 ==

== ENCOUNTER → 2024-03-07 13:04 | Outpatient (BNVA) | payer BC, MEDICAID, SELFPAY | PROVIDERS: PCP Family Medicine; Visit Provider Family Medicine | DX: I49.8 Other specified cardiac arrhythmias (principal); R07.9 Chest pain, unspecified | CPT/HCPCS: 93005 ==

== ENCOUNTER 2024-03-22 16:21 | Emergency (ER) | payer BC, MEDICAID, SELFPAY ==
--- NOTE | 2024-03-22 16:28 | ECG_ITS ---
[facility] Test Date: 2024-03-22 Pat Name: Nyasia Elkins Department: Room: Gender: Female Marketing Development Representative: : 1970 Requested By: Nico Galindo Order Number: [id number] Kandi MD: Last Fulton M.D. Measurements Intervals [place] Rate: 66 P: 28 CO: 151 QRS: 22 QRSD: 84 T: 40 QT: 358 QTc: 377 Interpretive Statements SINUS RHYTHM Compared to ECG 01/17/2024 08:22:46 Sinus bradycardia no longer present Myocardial infarct finding no longer present Electronically Signed On 03-22-2024 21:59:21 CDT by Last Fulton M.D. [id number]
[2024-03-22 16:34] VITALS: BP 125/86; PULSE 68; RESP 18; TEMP 36.6; O2SAT 97
--- NOTE | 2024-03-22 16:55 | ED_ITS ---
HPI - Arrhythmia/Palpitations 2 General: Chief Complaint: Arrhythmia/Palpitations Stated Complaint: SOB, fast HR Time Seen by Provider: 03/22/24 16:55 Source: patient Mode of arrival: ambulatory History of Present Illness: 54-year-old female presents emergency ro om with complaints of slow heart rate. She has had problems of bradycardia in the past send a Holter monitor a few years ago which showed sinus bradycardia occasional PVCs PACs. She is not on any negative inotropes at this time she has also seen a armament aircraft mechanic at [place]. She has not had any syncopal episodes she did report 1 episode prior to going on vacation her heart rate was in the 30s. There is no rhythm strip or monitoring on. She noted that on her pulse oximeter. She has not had any associated chest pain or shortness of breath. Patient is a diabetic MD complaint: palpitations Onset (ago): year(s) Duration: intermittent Arrhythmia history: atrial fibrillation Associated symptoms: Deny anxiety, cough, diaphoresis, muscle cramps, nausea, paresthesias, pre-syncope, sense of impending doom, short of breath, syncope or vomiting Review of Systems 2 Const: Denies: fever(s), chills or diaphoresis Card: Reports: palpitations; Denies: chest pain, syncope or pre-syncope Resp: Denies: dyspnea GI: Denies: abdominal pain, nausea or vomiting : Denies: dysuria, urinary frequency or urinary urgency Musc: Denies: neck pain, back pain or muscle cramps Skin/Breast: Denies: rash Psych: Denies: anxiety PFSH ED 2 PFSH: Medical History Vitamin D deficiency SUSAN (obstructive sleep apnea) Arthritis Ureterolithiasis PVD (peripheral vascular disease) Gout, unspecified Hypothyroidism Type 2 diabetes mellitus Atrial fibrillation Hyperlipidemia Surgical History S/P cystoscopy with ureteral stent placement History of cholecystectomy History of colonoscopy Endoscopy 2016 History of hysterectomy H/O cystoscopy 2014 Family History Mother Thyroid disease Father Heart disease Other CAD (coronary artery disease) Cancer Diabetes Gout, unspecified Hypertension Stroke Social History Smoking and tobacco/nicotine status: former use of tobacco/nicotine Alcohol intake: current Alcohol intake frequency: holidays/special occasions only Substance/Drug Use: never Caregiver/support person: No Lives independently: Yes Household members: spouse Marital status: Number of children: 1 Current occupational status: disabled Female Reproductive History: Spontaneous abortions: No Physical Exam 2 Const: GENERAL APPEARANCE: cooperative and comfortable O RIENTATION/CONSCIOUSNESS: Yes awake, Yes oriented to person, Yes oriented to place and Yes oriented to time HENMT: COMMON NORMALS: normocephalic, atraumatic and hearing grossly normal bilaterally HEAD & SCALP: normocephalic and atraumatic Resp: COMMON NORMALS: normal respiratory effort, No retractions, No use of accessory muscles and clear to auscultation bilaterally AUSCULTATION: clear to auscultation bilaterally Cardio: COMMON NORMALS: regular rhythm and No murmurs present (Cardio) R ATE: bradycardic RHYTHM: regular rhythm GI: COMMON NORMALS: Soft to palpation and No hepatosplenomegaly present A USCULTATION: Yes normoactive bowel sounds PALPATION: Yes Soft to palpation, No Tenderness to palpation present (GI), No Guarding due to palpation present (GI) and Yes No hepatosplenomegaly present Extremity: COMMON NORMALS: normal to inspection, capillary refill normal, no clubbing, cyanosis or edema, no calf tenderness and no pedal edema Neuro: SENSORIUM/ORIENTATION: Yes oriented to person, Yes oriented to place and Yes oriented to time Skin: COMMON NORMALS: no rashes or lesions noted GENERAL SKIN EXAM: no rashes or lesions noted Course 2 Vital Signs: Vital signs: Vital Signs Temperature 97.9 F 03/22/24 16:34 Pulse Rate 57 L 03/22/24 18:45 Respiratory Rate 17 03/22/24 18:00 Blood Pressure 113/75 03/22/24 18:45 Pulse Oximetry 97 03/22/24 18:45 Oxygen Delivery Me thod Room Air 03/22/24 18:30 MDM - Arrhythmia/Palpitations Medical Decision Making Patient reports episodes of bradycardia into the 30s. We do not have any documentation of a rhythm strip showing this at this point. She has no noted negative amiodarone evaluation emergency room shows bradycardia consistently but no significant arrhythmias. Will discharge the patient home and have her get a Holter monitor follow-up with her armament aircraft mechanic or primary care doctor. Reviewing her med list at this point she probably could stop the glipizide since she is already on insulin. She is not on anything that would be considered a negative inotrope. Medical Records I reviewed the patient's medical records. Lab Data I reviewed the patient's lab results. 03/22/24 17:15 03/22/24 17:15 Radiology Impressions Chest X-Ray 03/22/24 17:23 IMPRESSION: No acute findings. Laboratory Results WBC 11.53 10^3/uL (3.29-11.43) H 03/22/24 17:15 RBC 4.46 10^6/uL (3.85-5.65) 03/22/24 17:15 Hgb 12.60 g/dL (11.27-16.99) 03/22/24 17:15 Hct 39.5 % (36-47) 03/22/24 17:15 MCV 88.6 fl (85-98) 03/22/24 17:15 MCH 28.3 pg (27-33) 03/22/24 17:15 MCHC 31.9 g/dL (30-55) 03/22/24 17:15 RDW 14.3 % (12.1-15.1) 03/22/24 17:15 Plt Count 238 10^3/cmm (157-399) 03/22/24 17:15 MPV 10.1 fL (7.4-10.4) 03/22/24 17:15 Neut % (Auto) 64.9 % 03/22/24 17:15 Lymph % (Auto) 26.3 % 03/22/24 17:15 [place] % (Auto) 5.5 % 03/22/24 17:15 Eos % (Auto) 2.1 % 03/22/24 17:15 Baso % (Auto) 0.9 % 03/22/24 17:15 Neut # (Auto) 7.50 10^3/uL (1.8-7.7) 03/22/24 17:15 Lymph # (Auto) 3.0 10^3/uL (0.8-4.8) 03/22/24 17:15 [place] # (Auto) 0.6 10^3/uL (0.2-0.9) 03/22/24 17:15 Eos # (Auto) 0.2 10^3/uL (0.0-0.8) 03/22/24 17:15 Baso # (Auto) 0.1 10^3/uL (0.0-0.1) 03/22/24 17:15 Nucleated RBC % (auto) 0 % 03/22/24 17:15 Nucleated RBCs # 0.0 /100WBC 03/22/24 17:15 Sodium 142 mmol/L (136-145) 03/22/24 17:15 Potassium 4.5 mmol/L (3.5-5.1) 03/22/24 17:15 Chloride 108 mmol/L (98-107) H 03/22/24 17:15 Carbon Dioxide 24 mmol/L (22-29) 03/22/24 17:15 Anion Gap 14.5 (5-19) 03/22/24 17:15 BUN 19 mg/dL (6-20) 03/22/24 17:15 Creatinine 1.3 mg/dL (0.5-0.9) H 03/22/24 17:15 GFR Calculation 42.5 mL/min (90-130) L 03/22/24 17:15 Glucose 239 mg/dL (65-115) H 03/22/24 17:15 Calculated Osmolality 304 mOsm/kg (285-295) H 03/22/24 17:15 Calcium 8.9 mg/dL (8.5-10.5) 03/22/24 17:15 Total Bilirubin 0.3 mg/dL (0.15-1.2) 03/22/24 17:15 AST 20 U/L (0-32) 03/22/24 17:15 ALT 25 U/L (0-33) 03/22/24 17:15 Alkaline Phosphatase 100 U/L (35-105) 03/22/24 17:15 Total Protein 6.5 g/dL (6.6-8.7) L 03/22/24 17:15 Albumin 3.7 g/dL (3.5-5.2) 03/22/24 17:15 Globulin 2.8 g/dL (1.3-4.6) 03/22/24 17:15 Urine Color Yellow (Yellow) 03/22/24 16:25 Urine Appearance Clear (CLEAR) 03/22/24 16:25 Urine pH 5 (5-7) 03/22/24 16:25 Ur Specific [place] 1.020 (1.005-1.030) 03/22/24 16:25 Urine Protein Neg (Negative) 03/22/24 16:25 Urine Glucose (UA) 1+ (Normal) H 03/22/24 16:25 Urine Ketones Negative (Negative) 03/22/24 16:25 Urine Blood Neg (Negative) 03/22/24 16:25 Urine Nitrate Negative (Negative) 03/22/24 16:25 Urine Bilirubin Neg (Negative) 03/22/24 16:25 Urine Urobilinogen Norm mg/dL (Negative) 03/22/24 16:25 Ur Leukocyte Esterase Negative (Negative) 03/22/24 16:25 All radiology interpretation(s) finalized by discharge Discharge Plan Discharge Patient Disposition: Home Clinical Impression: Sinus bradycardia, Paroxysmal A-fib Condition: Stable Prescriptions: No Action neomycin-polymyxin B-dexameth [Maxitrol] 3.5mg/mL-10,000 unit/mL-0.1 % drops,suspension 2 drp ophthalmic (eye) Q12H 7 Days Qty: 5 0RF meloxicam 15 mg tablet 15 mg PO DAILY Qty: 30 5RF Hold Instructions: Resume on 10/30/23. Rx Instructions: Do not take Ibuprofen, aleve or other NSAIDs while using this medication. May use Tylenol. (DME) glucometer, diabetes supplies See Rx Instructions .Route .MEDSUPPLY Qty: 1 11RF Rx Instructions: Please issue glucometer, lancets, alcohol prep pads, solution and any other testing supplies. Flonase Allergy Relief 50 mcg/actuation spray,suspension 2 spray INTRANASAL DAILY PRN (Reason: Allergy Symptoms) Qty: 18.2 2RF Rx Instructions: administer into each nostril (DME) Blood Glucose Test Strip See Rx Instructions .MEDSUPPLY Qty: 300 12RF Rx Instructions: Use as directed with glucometer to check blood sugar three times daily (DME) lancets Misc See Rx Instructions .MEDSUPPLY Qty: 300 12RF Rx Instructions: Use as directed to prick skin for blood sugar checks three times daily (DME) diabetic shoes with 3 inserts See Rx Instructions .Route .MEDSUPPLY Qty: 1 0RF Rx Instructions: As directed spironolactone 25 mg tablet 25 mg PO DAILY Qty: 90 1RF losartan 25 mg tablet 25 mg PO DAILY Qty: 30 0RF rosuvastatin [Crestor] 5 mg tablet 5 mg PO DAILY Qty: 30 0RF Lantus Solostar U-100 Insulin 100 unit/mL (3 mL) insulin pen 15 unit SUBCUT QPM Qty: 15 0RF glipizide 10 mg tablet 10 mg PO BID Qty: 60 0RF Eliquis 5 mg tablet 5 mg PO BID Qty: 60 0RF Hold Instructions: Resume on 10/30/23. pantoprazole [Protonix] 40 mg tablet,delayed release (DR/EC) 40 mg PO BID 42 Days Qty: 84 1RF pregabalin 100 mg capsule 100 mg PO BID Qty: 60 5RF Rx Instructions: Covering for Dr. Ng levothyroxine 75 mcg tablet 75 mcg PO DAILY Qty: 90 1RF cholecalciferol (vitamin D3) 1,250 mcg (50,000 unit) capsule 50,000 unit PO Q7D loratadine 10 mg Tablet 10 mg PO QAM Discharge Orders: Discharge ED (Routine); Ordered 03/22/24 Ordered By: Nico Sanchez Referrals: Bethel Ng MD [Primary Care Provider] - Discharge Diet: Usual diet Discharge Activity: Resume usual activity Patient Instructions: Opioid Safety, Pain Management Activity Restrictions/Additional Instructions: Thank you for choosing [facility] for your healthcare needs today. It is very important that you follow up as instructed or that you return to the Emergency Department should you have concerns or if your condition changes or worsens in any way. You were seen today with complaints of low heart rate. You are not currently taking any medications that would slow your heart rate. Your heart rate in the emergency room was consistently below 60. Will set you up for a 72-hour Holter monitor and you should follow-up with the results of that with your primary care doctor. I did review an old Holter monitor which did not show any significant findings I was unable to find a sleep study in the chart follow-up with your primary care regarding regarding the results of that test. Coding Level of Care Code ED Customer Complaint Clerk for Neeru Okeefe
[2024-03-22 17:08] VITALS: BP 119/73; PULSE 55; RESP 13; O2SAT 97
[2024-03-22 17:13] LABS: Add Urine Microscopic? NO; Charge for UA Resulting for Rev
[2024-03-22 17:21] LABS: Bilirubin Urine Neg (Negative); Blood Urine Neg (Negative); Glucose Urine UA 1+ (Normal); Ketones Urine Negative (Negative); Leukocyte Esterase Urine Negative (Negative); Nitrate Urine Negative (Negative); Protein Urine Neg (Negative); Urine Appearance Clear (CLEAR); Urine Color Yellow (Yellow); Urobilinogen Urine Norm (Negative); pH Urine 5 (5-7)
--- NOTE | 2024-03-22 17:23 | XRR_ITS ---
PROCEDURE INFORMATION: Exam: XR Chest Exam date and time: 03/22/2024 5:29 PM Age: 54 years old Clinical indication: Cough and dyspnea; Additional info: Dyspnea/cough TECHNIQUE: Imaging protocol: Radiologic exam of the chest. Views: 1 view. COMPARISON: CR (CHEST, ) 01/17/2024 8:28 AM FINDINGS: Lungs: Unremarkable. No consolidation. Pleural spaces: Unremarkable. No pleural effusion. No pneumothorax. Heart/Mediastinum: Unremarkable. No cardiomegaly. Bones/joints: Unremarkable. XR/XR chest 1V portable [id number] IMPRESSION: No acute findings.
[2024-03-22 17:29] LABS: Basophils # 0.1 10^3/uL (0.0-0.1); Basophils % 0.9 %; Eosinophils # 0.2 10^3/uL (0.0-0.8); Eosinophils % 2.1 %; Hematocrit 39.5 % (36-47); Lymphocytes % 26.3 %; Mean Corpuscular HGB Conc 31.9 g/dL (30-55); Mean Corpuscular Hemoglobin 28.3 pg (27-33); Mean Corpuscular Volume 88.6 fl (85-98); Mean Platelet Volume 10.1 fL (7.4-10.4); Monocytes # 0.6 10^3/uL (0.2-0.9); Monocytes % 5.5 %; Neutrophils % 64.9 %; Nucleated Red Blood Cells % 0 %; Platelet Count 238 10^3/cmm (157-399); Red Blood Count 4.46 10^6/uL (3.85-5.65); Red Cell Distribution Width 14.3 % (12.1-15.1); White Blood Count 11.53 10^3/uL (3.29-11.43)
[2024-03-22 17:30] VITALS: BP 106/72; PULSE 58; O2SAT 95
[2024-03-22 17:54] LABS: Alanine Aminotransferase 25 U/L (0-33); Albumin Level 3.7 g/dL (3.5-5.2); Alkaline Phosphatase 100 U/L (35-105); Anion Gap 14.5 (5-19); Aspartate Amino Transferase 20 U/L (0-32); Blood Urea Nitrogen 19 mg/dL (6-20); Calcium 8.9 mg/dL (8.5-10.5); Carbon Dioxide 24 mmol/L (22-29); Chloride 108 mmol/L (98-107); Creatinine Clr Calc Pharmacy 69.7639; Globulin 2.8 g/dL (1.3-4.6); Glomerular Filtration Rate 42.5 mL/min (90-130); Glucose 239 mg/dL (65-115); Osmolality Calculated 304 mOsm/kg (285-295); Potassium 4.5 mmol/L (3.5-5.1); Sodium 142 mmol/L (136-145); Total Bilirubin 0.3 mg/dL (0.15-1.2); Total Protein 6.5 g/dL (6.6-8.7)
[2024-03-22 18:00] VITALS: BP 109/78; PULSE 59; RESP 17; O2SAT 95
[2024-03-22 18:30] VITALS: BP 158/95; PULSE 65; O2SAT 97
[2024-03-22 18:45] VITALS: BP 113/75; PULSE 57; O2SAT 97
--- NOTE | 2024-03-24 09:59 | DCPLANNER ---
messaged heart/lung for holter moniter as er f/u
== END 2024-03-22 18:46 | disposition home or self-care (01) ==
PROVIDERS: Emergency Provider Family Medicine; PCP Family Medicine
DX: R00.1 Bradycardia, unspecified (principal); I48.0 Paroxysmal atrial fibrillation; Z79.01 Long term (current) use of anticoagulants; Z79.84 Long term (current) use of oral hypoglycemic drugs; Z79.4 Long term (current) use of insulin; Z87.891 Personal history of nicotine dependence; E11.9 Type 2 diabetes mellitus without complications; E78.5 Hyperlipidemia, unspecified
CPT/HCPCS: 71045; 80053; 81003; 85025; 93005; 99285

== ENCOUNTER → 2024-06-13 11:05 | Outpatient (BNVA) | payer BC, MEDICAID, SELFPAY | PROVIDERS: PCP Family Medicine; Visit Provider Family Medicine | DX: E11.65 Type 2 diabetes mellitus with hyperglycemia (principal) | CPT/HCPCS: 80053; 83036 ==

== ENCOUNTER → 2024-06-20 10:38 | Outpatient (BNVA) | payer BC, MEDICAID, SELFPAY | PROVIDERS: PCP Family Medicine; Visit Provider Specialist | DX: M17.0 Bilateral primary osteoarthritis of knee (principal) | CPT/HCPCS: 73560; 73565 ==

== ENCOUNTER → 2024-10-04 13:00 | Outpatient (BNVA) | payer BC, MEDICAID, SELFPAY | PROVIDERS: PCP Family Medicine; Visit Provider Family Medicine | DX: E11.9 Type 2 diabetes mellitus without complications (principal); Z79.4 Long term (current) use of insulin; E03.9 Hypothyroidism, unspecified; E04.1 Nontoxic single thyroid nodule; I48.0 Paroxysmal atrial fibrillation; E11.65 Type 2 diabetes mellitus with hyperglycemia; I25.10 Atherosclerotic heart disease of native coronary artery without angina pectoris; Z79.899 Other long term (current) drug therapy | CPT/HCPCS: 80053; 80061; 82607; 83036; 84439; 84443; 85027 ==

== ENCOUNTER → 2025-01-03 11:30 | Outpatient (BNVA) | payer BC, SELFPAY | PROVIDERS: PCP Family Medicine; Visit Provider Family Medicine | DX: R79.89 Other specified abnormal findings of blood chemistry (principal); E11.65 Type 2 diabetes mellitus with hyperglycemia; E87.6 Hypokalemia | CPT/HCPCS: 80048; 82607; 83036 ==

== ENCOUNTER 2025-02-20 11:17 | Outpatient (CLI) | payer BC, MEDICAID, SELFPAY ==
--- NOTE | 2025-02-20 11:20 | MM_ITS ---
WS: [id number] BILATERAL 3D TOMOSYNTHESIS DIGITAL SCREENING MAMMOGRAM WITH CAD CLINICAL INFORMATION: Z12.31 - Encounter for screening mammogram for malignant ... HISTORY: Screening mammogram. No current complaints. COMPARISON: 2021 TECHNIQUE: Bilateral CC and MLO views. FINDINGS: Fatty-replaced breasts bilaterally. No suspicious focal mass, asymmetry, calcifications, or architectural distortion. No evidence of malignancy. A few incidental intramammary lymph nodes. Vascular calcifications. Few incidental calcifications RIGHT breast. MM/MM [facility] tomosynthesis [id number] IMPRESSION: DENSITY: There are scattered areas of fibroglandular density. BI-RADS: 2 - Benign. FOLLOW UP: 1 Year Follow-up Recommend return to annual screening mammography.
== END 2025-02-20 11:18 | disposition home or self-care (01) ==
PROVIDERS: PCP Family Medicine; Visit Provider Family Medicine
DX: Z12.31 Encounter for screening mammogram for malignant neoplasm of breast (principal); R92.313 Mammographic fatty tissue density, bilateral breasts; R59.0 Localized enlarged lymph nodes; R92.1 Mammographic calcification found on diagnostic imaging of breast
CPT/HCPCS: 77063; 77067

== ENCOUNTER 2025-03-01 16:04 | Outpatient (CLI) | payer BC, MEDICAID, SELFPAY ==
--- NOTE | 2025-03-01 16:25 | USR_ITS ---
PROCEDURE INFORMATION: Exam: US Soft Tissue Head and Neck, Thyroid Exam date and time: 03/01/2025 4:29 PM Age: 55 years old Clinical indication: Condition or disease; Other: Nodules TECHNIQUE: Imaging protocol: Real-time ultrasound scan of the neck with image documentation. Exam focused on the thyroid. COMPARISON: CT head wo con* [id number] 03/18/2020 2:09 PM FINDINGS: Right thyroid lobe: The right thyroid lobe measures 4.4 x 1.5 x 1.6 cm. No nodules. Left thyroid lobe: The left thyroid lobe measures 4.3 x 2.1 x 1.7 cm. There is a 1.1 x 1.3 x 0.8 cm nodule in the interpolar region of the left thyroid lobe. The nodule is almost completely solid with small cystic areas, isoechoic to the thyroid, wider than polar, smooth margins, with few punctate echogenic foci within the nodule. Isthmus: No nodules. The isthmus measures 0.4 cm. US/US thyroid [id number] IMPRESSION: A 1.3 cm left thyroid nodule. TI-RADS category 4: Moderately suspicious. Follow-up in 1, 2, 3 and 5 years is recommended.
== END 2025-03-01 16:05 | disposition home or self-care (01) ==
LOC: RAD 16:05
PROVIDERS: PCP Family Medicine; Visit Provider Internal Medicine
DX: E04.1 Nontoxic single thyroid nodule (principal)
CPT/HCPCS: 76536

== ENCOUNTER → 2025-03-28 09:11 | Outpatient (BNVA) | payer BC, MEDICAID, SELFPAY | PROVIDERS: PCP Family Medicine; Visit Provider Family Medicine | DX: R30.0 Dysuria (principal) | CPT/HCPCS: 81000 ==

== ENCOUNTER → 2025-04-03 12:56 | Outpatient (BNVA) | payer BC, MEDICAID, SELFPAY | PROVIDERS: PCP Family Medicine; Visit Provider Specialist | DX: E11.319 Type 2 diabetes mellitus with unspecified diabetic retinopathy without macular edema (principal); E11.65 Type 2 diabetes mellitus with hyperglycemia; E08.42 Diabetes mellitus due to underlying condition with diabetic polyneuropathy; E03.9 Hypothyroidism, unspecified; E78.5 Hyperlipidemia, unspecified; R41.3 Other amnesia | CPT/HCPCS: 36415; 80053; 80061; 82044; 82542; 83036; 83520; 84439; 84443 ==

== ENCOUNTER → 2025-06-28 12:17 | Outpatient (BNVA) | payer BC, MEDICAID, SELFPAY | PROVIDERS: PCP Family Medicine; Visit Provider Internal Medicine | DX: E11.65 Type 2 diabetes mellitus with hyperglycemia (principal); E11.42 Type 2 diabetes mellitus with diabetic polyneuropathy; E03.9 Hypothyroidism, unspecified | CPT/HCPCS: 36415; 80053; 80061; 82044; 83036; 84439 ==

== ENCOUNTER 2025-07-15 07:09 | Emergency (ER) | payer BC, MEDICAID, SELFPAY ==
--- OUTSIDE RECORDS SUMMARY | 2024-05-24 04:00 | XMS_ITS ---
Author Organization [facility] Address [address] [place] [address] Care Team Providers Care Cloth Tearer Name Role Phone Dr Tc Camacho DO Primary Care Provider Unav Luz Marina Gandara Unavailable [phone] Milind Isaacs Unavailable [phone] REASON FOR VISIT PPM DUAL Encounters Encounter Location Date Provider Diagnosis [facility] [address] [place] [address] 05/24/2024 Milind Isaacs Plan Of Treatment Next Appt Details Provider Name:Milind Isaacs , 10/04/2025 01:45:00 PM, [address] [place], [address], Provider Name:Milind Isaacs , 11/28/2025 01:00:00 PM, [address] [place], [address], Provider Name:Milind Isaacs , 11/28/2025 02:15:00 PM, [address] [place], [address], Provider Name:Milind Isaacs , 12/27/2025 01:00:00 PM, [address] [place], [address], Progress Notes * Nyasia DAVIESDOB:[birth year] (55 yo F)Acc No.[id number]:05/24/2024 Patient: Nyasia Santos Provider: Anne Marie Isaacs MD :1970 A ge:54 Y S ex:Female Date:05/24/2024 Address:[facility] [address] [facility] , [id number] Pcp:Dr Tc Camacho, DO Subjective: * Chief Complaints: * P PM DUAL Billing Information: * Procedure Codes: * Electronic signature of Diony Isaacs MD on 07/15/2025 at 07:15 AM CDT Sign off status: Pending * Provider: Anne Marie Isaacs MD Date: 0 05/24/2024 Generated for Nhi gunderson/Derian/iKkiitting on: 1 07:15 AM CDT
--- OUTSIDE RECORDS SUMMARY | 2024-06-20 08:00 | XMS_ITS ---
Author Organization [facility] Address [address] [place] [address] Care Team Providers Care Basket Mender Name Role Phone Dr Tc Camacho DO Primary Care Provider Unav ailable Alexei, Luz Marina Unavailable [phone] Milind Isaacs Unavailable [phone] REASON FOR VISIT 4-6M F/U PER LUZ MARINA OV 01/12/24 TD Encounters Encounter Location Date Provider Diagnosis [facility] [address] [place] [address] 06/20/2024 Milind Isaacs Plan Of Treatment Next Appt Details Provider Name:Milind Isaacs , 10/04/2025 01:45:00 PM, [address] [place], [address], Provider Name:Milind Isaacs , 11/28/2025 01:00:00 PM, [address] [place], [address], Provider Name:Milind Isaacs , 11/28/2025 02:15:00 PM, [address] [place], [address], Provider Name:Milind Isaacs , 12/27/2025 01:00:00 PM, [address] [place], [address], Progress Notes * Nyasia DAVIESDOB:[birth year] (55 yo F)Acc No.[id number]:06/20/2024 Progress Notes Patient: Nyasia Santos Provider: Anne Marie Isaacs MD :1970 A ge:54 Y S ex:Female Date:06/20/2024 Address:[address] [facility] [id number] Pcp:Dr Tc Camacho, DO Subjective: * Chief Complaints: * 4 -6M F/U PER LUZ MARINA OV 01/12/24 TD * Electronic signature of Diony Isaacs MD on 07/15/2025 at 07:17 AM CDT Sign off status: Pending * Provider: Anne Marie Isaacs MD Date: 0 06/20/2024 Generated for Nhi gunderson/Derian/Kikiitting on: 1 07:17 AM CDT
--- OUTSIDE RECORDS SUMMARY | 2024-12-27 08:00 | XMS_ITS ---
Author Organization [facility] Address [address] [place] [address] Care Team Providers Care Group Dynamics Instructor Name Role Phone Dr Tc Camacho DO Primary Care Provider UnaLuz Marina Alba Unavailable [phone] Milind Isaacs [phone] Encounters Encounter Location Date Provider Diagnosis [facility] [address] [place] [address], [place] [address] 12/27/2024 Milind Isaacs Plan Of Treatment Next Appt Details Provider Name:Milind Isaacs , 10/04/2025 01:45:00 PM, [address] [place], [address], Provider Name:Milind Isaacs , 11/28/2025 01:00:00 PM, [address] [place], [address], Provider Name:Milind Isaacs , 11/28/2025 02:15:00 PM, [address] [place], [address], Provider Name:Milind Isaacs , 12/27/2025 01:00:00 PM, [address] [place], [address], Progress Notes * Nyasia DAVIESDOB:[birth year] (55 yo F)Acc No.[id number]:12/27/2024 Patient: Nyasia Santos Provider: Anne Marie Isaacs MD :1970 A ge:54 Y S ex:Female Date:12/27/2024 Address: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
--- OUTSIDE RECORDS SUMMARY | 2025-01-12 02:15 | XMS_ITS ---
Author Organization [facility] Address [address] [place] [address] Care Team Providers Care Teacher Hearing Impaired Name Role Phone Dr Tc Camacho DO Primary Care Provider UnaLuz Marina Alba Unavailable [phone] Milind Isaacs [phone] Encounters Encounter Location Date Provider Diagnosis [facility] [address] [place] [address], [place] [address] 01/12/2025 Milind Isaacs Plan Of Treatment Next Appt Details Provider Name:Milidn Isaacs , 10/04/2025 01:45:00 PM, [address] [place], [address], Provider Name:Milind Isaacs , 11/28/2025 01:00:00 PM, [address] [place], [address], Provider Name:Milind Isaacs , 11/28/2025 02:15:00 PM, [address] [place], [address], Provider Name:Milind Isaacs , 12/27/2025 01:00:00 PM, [address] [place], [address], Progress Notes * Nyasia DAVIESDOB:[birth year] (55 yo F)Acc No.[id number]:01/12/2025 Patient: Nyasia Santos Provider: Anne Marie Isaacs MD :1970 A ge:54 Y S ex:Female Date:01/12/2025 Address:[facility] [address] [facility] [place] Pcp:Dr Tc Camacho, DO Check In:07:13 AM CSTCheck O ut:07:54 AM 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
--- OUTSIDE RECORDS SUMMARY | 2025-01-12 02:45 | XMS_ITS ---
Author Organization [facility] Address [address] [place] [address] Care Team Providers Care Crotch Piece Baster Name Role Phone Dr Tc Camacho DO Primary Care Provider UnaLuz Marina Alba Unavailable [phone] Milind Isaacs [phone] Encounters Encounter Location Date Provider Diagnosis [facility] [address] [place] [address], [place] [address] 01/12/2025 Milind Isaacs Plan Of Treatment Next Appt Details Provider Name:Milind Isaacs , 10/04/2025 01:45:00 PM, [address] [place], [address], Provider Name:Milind Isaacs , 11/28/2025 01:00:00 PM, [address] [place], [address], Provider Name:Milind Isaacs , 11/28/2025 02:15:00 PM, [address] [place], [address], Provider Name:Milind Isaacs , 12/27/2025 01:00:00 PM, [address] [place], [address], Progress Notes * Nyasia DAVIESDOB:[birth year] (55 yo F)Acc No.[id number]:01/12/2025 Patient: Nyasia Santos Provider: Anne Marie Isaacs MD :1970 A ge:54 Y S ex:Female Date:01/12/2025 Address:[facility] [address] [facility] [place] Pcp:Dr Tc Camacho, DO Check In:07:13 AM CSTCheck O ut:07:55 AM 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
--- OUTSIDE RECORDS SUMMARY | 2025-07-15 07:18 | XMS_ITS | Patient Health Record ---
Author Organization [facility] Address [address] [place] [address] Care Team Providers Care Teacher Selection Specialist Name Role Phone Dr Tc Camacho DO Primary Care Provider Unasusan Luz Marina Gandara Unavailable [phone] Milind Isaacs Unavailable [phone] Allergies Allergen (clinical drug ingredient) Drug/Non Drug Allergy documented on EMR Reaction Allergy Type Onset Date Status amoxicillin / clavulanate Augmentin SOB, tachycardia Drug Allergy Active Iodine rash Drug Allergy Active lisinopril Lisinopril gout Drug Allergy Inact luci fluoxetine Prozac hallucination Drug Allergy Ac tive tizanidine Tizanidine HCl AMS Drug Allergy A ctive Results Component Value Reference Range Notes US Doppler Aorta, IVC, Iliac -[id number] Reviewed date:02/03/2025 11:18:36 AM Interpretation: Performing Lab: Notes/Report: See Below For Report US Doppler Aorta, IVC, Iliac Read See Below For Report US Doppler Scan Arterial LE Bilat-86533 Reviewed date:02/03/2025 11:18:36 AM Interpretation: Performing Lab: Notes/Report: See Below For Report US Doppler Scan Arterial LE Bilat Read See Below For Report US Ankle Brachial Pressure I ndex-47777 Reviewed date:12/29/2024 03:49:36 PM Interpretation: Performing Lab: Notes/Report: See Below For Report US Ankle Brachial Pressure Index Read See Below For Report US Doppler Aorta, IVC, Iliac -31017 Reviewed date:12/29/2024 10:43:03 AM Interpretation: Performing Lab: Notes/Report: US Doppler Scan Arterial LE Bilat-85007 Reviewed date:12/29/2024 10:58:24 AM Interpretation: Performing Lab: Notes/Report: US Ankle Brachial Pressure I ndex-45818 Reviewed date:12/29/2024 03:49:57 PM Interpretation: Performing Lab: Notes/Report: [id number]=iSite US Doppler Aorta, IVC, Iliac -08071 Reviewed date:02/03/2025 11:18:36 AM Interpretation: Performing Lab: Notes/Report: [id number]&org=iSite US Doppler Scan Arterial LE Bilat-38518 Reviewed date:02/03/2025 11:18:36 AM Interpretation: Performing Lab: Notes/Report: dtj=[id number]&org=iSite US Ankle Brachial Pressure I ndex-34132 Reviewed date:12/21/2024 08:01:42 AM Interpretation: Performing Lab: Notes/Report: Reason For Referral No Information Medications Medication SIG (Take, Route, Frequency, Duration) Notes Start Date End Date Status Crestor 5 MG Tablet 1 tablet Orally Once a day 10/13/2023 Active Metoprolol Succinate ER 50 MG Tablet Extended Release 24 Hour 1 tablet Orally Once a day; Duration: 90 days Active Nateglinide 120 MG Tablet as directed Or ally 3 times a day- with meal Active Pregabalin 50 MG Capsule 1 capsule Orall y twice a day; Duration: 30 days 08/23/2020 Active Pantoprazole Sodium 40 MG Tablet Delayed Release 1 tablet Orally Once a day Active Donepezil HCl 5 MG Tablet 1 tablet at be dtime Orally Once a day Active Memantine HCl 10 MG Tablet 1 tablet Oral ly twice a day Active Vitamin D (Ergocalciferol) 1.25 MG (46690 UT) Capsule 1 capsule Orally Once a week Active Metoprolol Succinate ER 50 MG Tablet Extended Release 24 Hour 1 tablet Orally Once a day; Duration: 30 days 06/13/2025 Active Meloxicam 15 MG Tablet 1 tablet Orally O nce a day prn Active Loratadine 10 MG Tablet 1 tablet Orally Once a day Active Lantus 100 UNIT/ML Solution as directed Subcutaneous Active Levothyroxine Sodium 75 MCG Tablet 1 tablet in the morning on an empty stomach Orally Once a day Active Immunizations Vaccine Route Administration Date Status Comme nts Afluria Quadrivalent Influenza Vaccine 3 years+ IM Intramuscular 07/16/2020 Administered Social History Tobacco Use: Social History Observation Description Date Details (start date - stop date) Never Smoker NA - NA Social History Drugs/Alcohol: Social Info Question Answer Notes Alcohol Screen (Audit-C) Did you have a drink containing alcohol in the past year? Yes How often did you have a drink containing alcohol in the past year? Monthly or less (1 point) How many drinks did you have on a typical day when you were drinking in the past year? 1 or 2 drinks (0 point) How often did you have 6 or more drinks on one occasion in the past year? Never (0 point) Points 1 Interpretation Negative Drugs Have you used drugs other than those for medical reasons in the past 12 months? No Household: Social Info Question Answer Notes Household Marital status: Drug/Alcohol: Social Info Question Answer Notes AUDIT-C (Standard) Did you have a drink containing alcohol in the past year? No Points 0 Interpretation Negative Tobacco Use: Social Info Question Answer Notes xTobacco Use/Smoking Are you a nonsmoker Additional Details Category Social Info Options Details Drugs/Alcohol: Do you smoke marijuana? Ad mits Section Notes: caffeine pos - pt has stopped drinking caffeine, does not drink much anymore alcohol neg caffeine pos - pt has stopped drinking caffeine, does not drink much anymore alcohol neg caffeine pos alcohol neg caffeine pos - pt has stopped drinking caffeine, does not drink much anymore alcohol neg caffeine pos - pt has stopped drinking caffeine, does not drink much anymore alcohol neg Problems Problem Type SNOMED Code ICD Code Onset Dates Problem Status W/U Status Risk Notes Problem Paroxysmal atrial fibrillation (196640925) Paroxysmal atrial fibrillation (I48.0) Active confirmed Problem Sick sinus syndrome (25882948) Sick sinus syndrome (I49.5) Active confirmed Problem Intermittent claudication of bilateral lower limbs co-occurrent and due to atherosclerosis (06291643497389861) Atherosclerosis of enterprise arteries of extremities with intermittent claudication, bilateral legs (I70.213) Active confirmed Problem Cardiac pacemaker in situ (663245452) Presence of cardiac pacemaker (Z95.0) Active confirmed Problem Essential hypertension (31420484) Essential hypertension (I10) Active confirmed Problem Type II diabetes mellitus without complication (670985202) Type 2 diabetes mellitus without complication, without long-term current use of insulin (E11.9) Active confirmed Problem Atherosclerosis of coronary artery without angina pectoris (131512833201897) Atherosclerosis of enterprise coronary artery of enterprise heart without angina pectoris (I25.10) Active confirmed Problem Gastroesophageal reflux disease (234136264) Gastroesophageal reflux disease, esophagitis presence not specified (K21.9) Active confirmed Problem Acquired hypothyroidism (895842407) Acquired hypothyroidism (E03.9) Active confirmed Problem Obesity (649269359) Obesity (E66.9) Active conf irmed Problem Inflammatory and toxic neuropathy (379330328) Peripheral polyneuropathy (G62.9) Active confirmed Problem Hyperlipidemia (49123386) Hyperlipidemia (E78.5) Active confirmed Problem Obese class II (028226942455347) BMI 38.0-38.9,adult (Z68.38) Active confirmed Problem Cardiac pacemaker (16327815) Cardiac pacemaker (Z95.0) Active confirmed Vital Signs Heart Rate 62 /min 06/13/2025 Height-cm 175.26 cm 06/13/2025 Oximetry 98 % 06/13/2025 Blood pressure diastolic 82 mm Hg 06/13/2025 Weight-kg 120.2 kg 06/13/2025 Height 69 in 06/13/2025 Blood pressure systolic 132 mm Hg 06/13/2025 Weight 265 lbs 06/13/2025 BMI 39.13 kg/m2 06/13/2025 Encounters Encounter Location Date Provider Diagnosis [facility] [address] [address] 12/27/2024 Milind Isaacs [address] [address] 12/08/2024 Milind Isaacs Essential hypertensi on I10 ; Other fatigue R53.83 ; Acquired hypothyroidism E03.9 ; Type 2 diabetes mellitus without complication, without long-term current use of insulin E11.9 ; Obesity E66.9 ; Atherosclerosis of enterprise coronary artery of enterprise heart without angina pectoris I25.10 ; Paroxysmal atrial fibrillation I48.0 ; Cardiac pacemaker Z95.0 ; Palpitations R00.2 ; SOB (shortness of breath) on exertion R06.02 ; Numbness in feet R20.0 and Sick sinus syndrome I49.5 [facility] [address] [address] 01/12/2025 Milind Isaacs [address] [place] [address] 01/12/2025 Milind Isaacs [facility] [address] [place] [address] 06/13/2025 Luz Marina Linda Essential hypertensi on I10 ; Acquired hypothyroidism E03.9 ; Type 2 diabetes mellitus without complication, without long-term current use of insulin E11.9 ; Obesity E66.9 ; Atherosclerosis of enterprise coronary artery of enterprise heart without angina pectoris I25.10 ; Paroxysmal atrial fibrillation I48.0 ; Cardiac pacemaker Z95.0 ; Palpitations R00.2 ; SOB (shortness of breath) on exertion R06.02 ; Sick sinus syndrome I49.5 and Hyperlipidemia E78.5 [facility] [address] [place] [address] 10/05/2024 Milind Isaacs Presence of cardiac pacemaker Z95.0 and Sick sinus syndrome I49.[address] [place] [address] 07/06/2025 Milind Isaacs Paroxysmal atrial fibrillation I48.0 ; Essential hypertension I10 and Type 2 diabetes mellitus without complication, without long-term current use of insulin E11.[address] [place] [address] 01/18/2025 Milind Isaacs [facility] [address] [place] [address] 12/29/2024 Milind Isaacs [address] [place] [address] 09/15/2024 Milind Isaacs Assessments Encounter Date Diagnosis (ICD Code) Assessment Notes Treatment Notes Treatment Clinical Notes Section Notes 07/06/2025 Paroxysmal atrial fibrillation (ICD-10 - I48.0) 06/13/2025 Essential hypertension (ICD-10 - I10) Well-controlled, continue current antihypertensive regimen with metoprolol. 06/13/2025 Acquired hypothyroidism (ICD-10 - E03.9) Maintained on levothyroxine. 12/08/2024 Other fatigue (ICD-10 - R53.83) 12/08/2024 Essential hypertension (ICD-10 - I10) 10/05/2024 Sick sinus syndrome (ICD-10 - I49.5) 10/05/2024 Presence of cardiac pacemaker (ICD-10 - Z95.0) 12/08/2024 Acquired hypothyroidism (ICD-10 - E03.9) Maintained on levothyroxine. 06/13/2025 Type 2 diabetes mellitus without complication, without long-term current use of insulin (ICD-10 - E11.9) Maintained on Lantus. She was instructed by ophthamology to stop Ozempic. Lat A1C was 8.4%. 07/06/2025 Essential hypertension (ICD-10 - I10) 07/06/2025 Type 2 diabetes mellitus without complication, without long-term current use of insulin (ICD-10 - E11.9) 06/13/2025 Obesity (ICD-10 - E66.9) 12/08/2024 Type 2 diabetes mellitus without complication, without long-term current use of insulin (ICD-10 - E11.9) Maintained on Lantus and Ozempic. 12/08/2024 Obesity (ICD-10 - E66.9) 06/13/2025 Atherosclerosis of enterprise coronary artery of enterprise heart without angina pectoris (ICD-10 - I25.10) Per minimally elevated coronary calcium score. Patient is not having anginal symptoms. Continue conservative therapy. 06/13/2025 Paroxysmal atrial fibrillation (ICD-10 - I48.0) 12/08/2024 Atherosclerosis of enterprise coronary artery of enterprise heart without angina pectoris (ICD-10 - I25.10) Per minimally elevated coronary calcium score. Patient is not having anginal symptoms. Continue conservative therapy. 06/13/2025 Cardiac pacemaker (ICD-10 - Z95.0) Continue following in device clinic. Last remote was 01/2025. 12/08/2024 Paroxysmal atrial fibrillation (ICD-10 - I48.0) 12/08/2024 Cardiac pacemaker (ICD-10 - Z95.0) Last remote report generated on 10/22/2024 shows appropriate device function with a remaining battery life of >95%. Patient is a-paced 84% of the time and v-paced 2.7% of the time. Patient has an AT/AF burden of 1%. The pacemaker did not report any alerts or events. 06/13/2025 Palpitations (ICD-10 - R00.2) Well-controlled with metoprolol. 06/13/2025 SOB (shortness of breath) on exertion (ICD-10 - R06.02) 12/08/2024 Palpitations (ICD-10 - R00.2) Increase metoprolol to 50 mg once per day for palpitations. 12/08/2024 SOB (shortness of breath) on exertion (ICD-10 - R06.02) 06/13/2025 Sick sinus syndrome (ICD-10 - I49.5) Status post permanent pacemaker. Continue to follow in pacemaker clinic. 06/13/2025 Hyperlipidemia (ICD-10 - E78.5) 12/08/2024 Numbness in feet (ICD-10 - R20.0) Obtain CYRIL. 12/08/2024 Sick sinus syndrome (ICD-10 - I49.5) Status post permanent pacemaker. Continue to follow in pacemaker clinic. 12/08/2024 Other Follow up in 4- 6 months. Josephine Levin, am scribing for Milind Isaacs MD.Milind Levin MD, personally performed the services prescribed in this documentation , as scribed by Josephine Mitchell, and it is both accurate and complete. Plan Of Treatment Pending Test Test Name Order Date Prothrombin Time 01074 05/12/2024 Basic Metabolic Panel (BMP) 76472 2023 Basic Metabolic Panel (BMP) 75021 2024 Partial Thromboplastin Time 17534 2023 CBC Reflex Man Diff 48749, 33436 024 Chest PA/Lat-95310 05/12/2024 Echo Complete [id number] 06/13/2025 US Ankle Arm Indicies-34502 12/29/2024 Electrocardiogram 12 Lead Tracing-91245 05/12/2024 CTA Chest Watchman-67194 07/06/2025 Schedule Confirmation 07/27/2025 Schedule Confirmation 07/28/2025 Next Appt Details Provider Name:Milind Shital , 10/04/2025 01:45:00 PM, [address] [place], [address], Provider Name:Milind Shital , 11/28/2025 01:00:00 PM, [address] [place], [address], Provider Name:Milind Isaacs , 11/28/2025 02:15:00 PM, [address] [place], [address], Provider Name:Milind Isaacs , 12/27/2025 01:00:00 PM, [address] [place], [address], Insurance Providers Payer Name Payer Address Payer Phone Subscriber Number Group Number Insured Name Patient Relationship to Insured Coverage Start Date Coverage End Date Healthy [facility] Medicaid Replacement [address] [address] [place] [address] [id number] Nyasia Elkins Self - patient is the insured Medical (General) History Medical History History ICD Code Hypertension Hypercholesterolemia Atrial Fibrillation Type 2 diabetes Peripheral neuropathy Hypothyroidism Hx of renal stones Gout Hx of blood transfusion Anemia covid vax Afib Surgical History Surgery Date(Month/Year) Hysterectomy Cholecystectomy Renal stone PPM SJM 05/24/2024 Hospitalization History Reason Date(Month/Year) PPM 05/24/2024 [facility] rapid heartbeat no admit 04/13 Cardiac Renal stone Cholecystectomy Hysterectomy Childbirth
--- OUTSIDE RECORDS SUMMARY | 2025-07-15 07:19 | XMS_ITS | Clinical Summary ---
Author Organization [facility] de Address [address] [place] [address] Phone Care Team Providers Care Blankmaker Name Role Phone Unavailable Primary Care Provider Unavailabl e Allergies Active Allergy Reactions Criticality Noted Date Comments Codelizbet Hives High 12/29/2023 Makes her itch Escitalopram Fever Low 12/29/2023 Makes her sick to her stomach and makes her throw up Fluoxetine Hallucination Medium 12/29/2023 Makes her see things that aren't there Iodine Rash Low 12/29/2023 Makes her itch Semaglutide Other (See Comments) 12/29/2023 Made her very sick Has since restarted but told to be sure to drink enough Tizanidine Other (See Comments) 12/29/2023 Not able to consintrate to drive Medications apixaban (ELIQUIS) 5 mg tablet Twice A Day 3 Active cholecalcifero l 1,250 mcg (50,000 unit) Capsule 50,000 Units. 3 Active glipiZIDE (GLUCOTROL XL) 10 mg Extended Release 24 hour tablet Twice A Day 3 Active Jardiance 10 mg tablet Take 10 mg by mouth daily in the morning. 4 Active Lantus Solostar U-100 Insulin 100 unit/mL (3 mL) solution for injection INJECT 10 units subcutaneously EVERY DAY 4 Active OneTouch Delica Plus Lancet 33 gauge USE DIRECTED TO PRICK SKIN FOR BLOOD SUGAR CHECKS. 4 Active levothyroxine 75 mcg tablet Take 1 Tablet by mouth daily. 4 Active lisinopriL (PRINIVIL) 40 mg tablet Take 1 Tablet by mouth daily. 4 Active meloxicam (MOBIC) 15 mg tablet TAKE ONE TABLET BY MOUTH DAILY; DO NOT TAKE IBUPROFEN, ALEVE OR OTHER NSAIDS WHILE USING THIS MEDICATION. MAY USE TYLENOL 4 Active neomycin-polym yxin-dexAMETHa sone (MAXITROL) 3.5mg/mL-10,00 0 unit/mL-0.1 % suspension INSTILL TWO DROPS INTO THE EYES EVERY TWELVE HOURS FOR SEVEN DAYS. 4 Active pantoprazole (PROTONIX) 40 mg Tablet, Delayed Release (E.C.) TAKE ONE TABLET BY MOUTH TWICE DAILY FOR SIX WEEKS 4 Active potassium citrate (UROCIT-K) 10 mEq (1,080 mg) Extended Release tablet Take 1 Tablet by mouth 3 times daily. 4 Active pregabalin (LYRICA) 100 mg Capsule Take 1 Capsule by mouth 2 times daily. 4 Active rosuvastatin (CRESTOR) 5 mg tablet Take 1 Tablet by mouth daily. 4 Active spironolactone (ALDACTONE) 25 mg tablet Take 1 Tablet by mouth daily. 4 Active loratadine (CLARITIN) 10 mg tablet Take 10 mg by mouth daily. Active magnesium CHLORIDE (Slow-Mag) 71.5 mg Tablet, Delayed Release (E.C.) 2 tablets Orally Once a day for 30 day(s) Active metoprolol succinate (TOPROL XL) 50 mg Extended Release 24 hour tablet Take 50 mg by mouth daily. Active fluticasone propionate (FLONASE) 50 mcg/spray [place], Suspension nasal inhaler Uses prn 5 Active Ozempic 1 mg/dose (4 mg/3 mL) Pen Injector Inject 1 mg by subcutaneous injection every 7 days. 5 Active nateglinide 60 mg Tablet Take 60 mg by mouth 3 times daily with meals. 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,Dry eye syndrome of both eyes,Type 2 diabetes mellitus with diabetic peripheral angiopathy without gangrene, without long-term current use of insulin,Combined forms of age-related cataract of both eyes 1 Drop Both Eyes ONE TIME ONLY 03/22/2025 Active Active Problems Problem Noted Date Diagnosed Date Type 2 diabetes mellitus wit h diabetic peripheral angiopathy without gangrene, without long-term current use of insulin 02/02/2025 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 02/02/2025 Dry eye syndrome of both eyes 02/02/2025 Combined forms of age-related cataract of both e yes 02/02/2025 Encounters Date Type Department Care Team Description 04/26/2025 External Device Data STL ABSTRACTION Provider, Abstract 04/25/2025 External Device Data STL ABSTRACTION Provider, Abstract from Last 3 Months Family History Medical History Relation Name Comments Diabetes Brother Heart Disease Brother Diabetes Father Heart Disease Father Relation Name Status Comments Brother Father Social History Tobacco Use Types Packs/Day Years Used Date Smoking Tobacco: Former Cigarettes Smokeless Tobacco: Never Tobacco Cessation:Counseling Given: Not Answered Alcohol Use Standard Drinks/Week Comments Yes 0 (1 standard drink = 0.6 oz pur e alcohol) Occasionally Comments No Sex and Gender Information Value Date Recorded Sex Assigned at Not on file Legal Sex Female 4:01 PM CDT Gender Identity Not on file Sexual Orientation Not on file Last Filed Vital Signs Vital Sign Reading Time Taken Comments Blood Pressure 126/83 12/29/2023 8:11 AM CDT Pulse 64 12/29/2023 8:11 AM CDT Temperature - - Respiratory Rate - - Oxygen Saturation - - Inhaled Oxygen Concentration - - Weight 121.6 kg (268 lb) 03/07/2025 7:02 AM CDT Height 180.3 cm (5' 11 ) 12/29/2023 8:11 AM CDT Body Mass Index 37.38 12/29/2023 8:11 AM CDT Plan of Treatment Upcoming Encounters Date Type Department Care Team (Late st Contact Info) Description 10/11/2025 1:00 PM RESEARCH AND DEVELOPMENT RESEARCHER Procedure visit [facility] [place] [address] [address] 10/11/2025 1:20 PM RESEARCH AND DEVELOPMENT RESEARCHER Office Visit [facility] [place] [address] [address] Won Molina MD [address] [place] [address] Health Maintenance Due Date Last Done Comments DIABETES ANNUAL FOOT EXAM 1987 DIABETES HBA1C Q 6 MONTHS 1987 DIABETES MICROALBUMIN ANNUAL SCREEN 1987 LDL CHOLESTEROL ANNUAL 1987 DTAP/TDAP/TD VACCINES (1 - Tdap) 01/21/1988 HEPATITIS B VACCINES (1 of 3 - 19+ 3-dose series) 01/21/1988 HPV/Cotest (21-29) 1990 CERVICAL CANCER SCREENING 1999 HPV/Cotest (30-65) 1999 PAP SMEAR 1999 BREAST CANCER SCREENING 2009 COLORECTAL SCREENING 2014 Colorectal Cancer Screening 2014 FIT-DNA Q 3 years 2014 FIT/FOBT Q 1 year 2014 Flex Sig/CT Colonography Q 5 years 2014 ZOSTER VACCINE (1 of 2) 2019 INFLUENZA VACCINE (#1) 2025 07/16/2020 COVID-19 Vaccine (2 - 2024-2 6 season) 2025 10/17/2020 DIABETES ANNUAL RETINAL EXAM 03/22/202610/2024, 03/22/2025, 03/22/2025, Additional history exists Medical Devices Implanted Type Area Cab Starter Device Identifier Shelf Expiration Date Model / Serial / Lot Lead-05/24/2024 Prado [id number] Implanted:11/2023 (Quantity not on file) Lead [employer] [id number] / [id number] / Lead-05/24/2024 Prado [id number] Implanted:11/2023 (Quantity not on file) Lead [employer] -58 / [id number] / Pacemaker-2023 Prado [id number] Implanted:11/2023 (Quantity not on file) Pacemaker [employer] [id number] / [id number] / Insurance BCBS [place] MEDICAID
--- NOTE | 2025-07-15 07:20 | XRR_ITS ---
PROCEDURE INFORMATION: Exam: XR Chest Exam date and time: 07/15/2025 7:55 AM Age: 55 years old Clinical indication: Cough and dyspnea; Prior surgery; Surgery date: 6+ months; Surgery type: Pacemaker; Additional info: Dyspnea/cough TECHNIQUE: Imaging protocol: Radiologic exam of the chest. Views: 1 view. COMPARISON: CR (CHEST, ) 03/22/2024 5:29 PM FINDINGS: Tubes, catheters and devices: Interval placement of a left subclavian pacer with right atrial appendage and right ventricular leads. Lungs: Unremarkable. No consolidation. Pleural spaces: Unremarkable. No pleural effusion. No pneumothorax. Heart/Mediastinum: Unremarkable. No cardiomegaly. Bones/joints: Unremarkable. XR/XR chest 1V portable [id number] IMPRESSION: No acute cardiopulmonary findings.
--- NOTE | 2025-07-15 07:27 | ECG_ITS ---
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1970 Requested By: Nico Galindo Order Number: [id number] Reading MD: SHI FERREIRA Measurements Intervals [place] Rate: 123 P: 0 [place]: 0 QRS: 27 QRSD: 86 T: 51 QT: 309 QTc: 443 Interpretive Statements ATRIAL FIBRILLATION WITH RAPID VENTRICULAR RESPONSE SEPTAL MYOCARDIAL INFARCTION , PROBABLY OLD [40+ ms Q WAVE IN V1/V2] INTERPRETATION BASED ON A DEFAULT AGE OF 40 YEARS Compared to ECG 03/22/2024 16:28:05 Myocardial infarct finding now present Sinus rhythm no longer present Electronically Signed On 07-16-2025 22:27:03 CDT by SHI FERREIRA [id number]
--- NOTE | 2025-07-15 07:31 | W.ED.GENADLT ---
HPI - General Adult General: Chief complaint: Shortness of Breath/Dyspnea Stated complaint: SOB Light headed Time Seen by Provider: 07/15/25 07:31 History of Present Illness: 55-year-old female presents emergency room with complaint of weakness some shortness of breath. Patient has a history of hypothyroidism atrial fibrillation chronic kidney disease insulin-dependent diabetes mellitus. Patient reports having mild chest discomfort describes more as a fullness shortness of breath with any exertion and rapid heart rate. She did take her metoprolol this morning before coming into the emergency room when she was first in triage she was in A-fib with RVR by the time she was brought back to her room she converted to a sinus rhythm with a rate in the 70s. She still is intermittently having some atrial fibrillation she no longer has any chest discomfort. 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,cont #1 ea 12/21/24 (Dexcom G7 [employer]) Pen Firth #100 ea 01/19/25 levothyroxine 75 mcg tablet 75 mcg PO DAILY #90 tabs 02/20/25 pregabalin 100 mg capsule 100 mg PO BID #60 caps 02/20/25 rosuvastatin 5 mg tablet 5 mg PO DAILY #90 tabs 02/20/25 nateglinide 120 mg tablet 120 mg PO TID #270 tabs 04/19/25 apixaban 5 mg tablet (Eliquis) See Rx Instructions .Route 04/26/25 .COMPLEX #120 tabs potassium citrate 10 mEq (1,080 See Rx Instructions .Route 05/02/25 mg) tablet,extended release .COMPLEX #90 tabs insulin glargine 100 unit/mL (3 See Rx Instructions .Route 06/23/25 mL) subcutaneous pen (Lantus .COMPLEX #15 mL Solostar U-100 Insulin) galantamine 4 mg tablet 4 mg PO BID #180 tabs 07/04/25 memantine 10 mg tablet (Namenda) 10 mg PO BID #180 tabs 07/04/25 pantoprazole 40 mg tablet,delayed See Rx Instructions .Route 07/10/25 release .COMPLEX #60 tabs donepezil 5 mg tablet 5 mg PO DAILY #90 tabs 07/12/25 metoprolol succinate 50 mg 75 mg (1.5 x 50 mg) PO ONCE #45 07/15/25 tablet,extended release 24 hr tabs fluticasone propionate 50 See Rx Instructions .Route 07/17/25 mcg/actuation nasal .COMPLEX #16 grams spray,suspension Allergies Allergy/AdvReac Type Severity Reaction Status Date / Time codeine Allergy Unknown Unknown Verified 07/12/25 10:36 iodine Allergy Unknown Unknown Verified 07/12/25 10:36 tizanidine Allergy Unknown Unknown Verified 07/12/25 10:36 escitalopram (From Lexapro) Allergy Unknown Verified 07/12/25 10:36 fluoxetine (From Prozac) Allergy rash Verified 07/12/25 10:36 povidone-iodine (From Allergy rash Verified 07/12/25 10:36 Betadine) soap (From Betadine) Allergy rash Verified 07/12/25 10:36 Review of Systems Const: Denies: fever(s) or chills Card: Denies: chest pain Resp: Denies: dyspnea GI: Denies: abdominal pain : Denies: dysuria, urinary frequency or urinary urgency Musc: Denies: neck pain or back pain Skin/Breast: Denies: rash PFSH ED PFSH: Medical History CKD stage 3a, GFR 45-59 ml/min Pacemaker Vitamin D deficiency SUSAN (obstructive sleep apnea) Arthritis Ureterolithiasis PVD (peripheral vascular disease) Gout, unspecified Hypothyroidism Type 2 diabetes mellitus Atrial fibrillation Hyperlipidemia Surgical History S/P cystoscopy with ureteral stent placement History of cholecystectomy History of colonoscopy Endoscopy 2016 History of hysterectomy H/O cystoscopy 2015 Family History Mother Thyroid disease Father Heart disease Other CAD (coronary artery disease) Cancer Diabetes Gout, unspecified Hypertension Stroke Social History Smoking and tobacco/nicotine status: never used tobacco/nicotine Alcohol intake: current Alcohol intake frequency: holidays/special occasions only Substance/Drug Use: never Caregiver/support person: No Lives independently: Yes Household members: spouse Marital status: Number of children: 1 Current occupational status: disabled Female Reproductive History: Spontaneous abortions: No Physical Exam Const: GENERAL APPEARANCE: cooperative ORIENTATION/CONSCIOUSNESS: Yes awake HENMT: COMMON NORMALS: normocephalic, atraumatic and hearing grossly normal bilaterally HEAD & SCALP: normocephalic and atraumatic Resp: COMMON NORMALS: normal respiratory effort, No retractions, No use of accessory muscles and clear to auscultation bilaterally AUSCULTATION: clear to auscultation bilaterally Cardio: COMMON NORMALS: No murmurs present (Cardio) RATE: tachycardic RHYTHM: abnormal rhythm irregularly irregular GI: COMMON NORMALS: Soft to palpation and No hepatosplenomegaly present AUSCULTATION: Yes normoactive bowel sounds PALPATION: Yes Soft to palpation, No Tenderness to palpation present (GI), No Guarding due to palpation present (GI) and Yes No hepatosplenomegaly present Extremity: COMMON NORMALS: normal to inspection, capillary refill normal, no clubbing, cyanosis or edema, no calf tenderness and no pedal edema Skin: COMMON NORMALS: no rashes or lesions noted GENERAL SKIN EXAM: no rashes or lesions noted Course Vital Signs: Vital signs: Vital Signs Temperature 98.2 F 07/15/25 07:50 Pulse Rate 65 07/15/25 10:12 Respiratory Rate 20 H 07/15/25 10:12 Blood Pressure 168/87 07/15/25 10:12 Pulse Oximetry 97 07/15/25 10:12 Oxygen Delivery Me thod Room Air 07/15/25 07:50 MDM - General Adult Medical Decision Making No evidence of decompensated heart failure. Rate well-controlled. Will discharge home however follow-up with cardiology within the next week. She reported having rapid heart rate earlier in the day but no A-fib with RVR at this time. Medical Records I reviewed the patient's medical records. Lab Data I reviewed the patient's lab results. 07/15/25 07:41 07/15/25 07:41 Radiology Impressions Chest X-Ray 07/15/25 07:20 IMPRESSION: No acute cardiopulmonary findings. Laboratory Results WBC 8.62 10^3/uL (3.29-11.43) 07/15/25 07:41 RBC 4.90 10^6/uL (3.85-5.65) 07/15/25 07:41 Hgb 13.60 g/dL (11.27-16.99) 07/15/25 07:41 Hct 42.3 % (36-47) 07/15/25 07:41 MCV 86.3 fl (85-98) 07/15/25 07:41 MCH 27.8 pg (27-33) 07/15/25 07:41 MCHC 32.2 g/dL (30-55) 07/15/25 07:41 RDW 13.9 % (12.1-15.1) 07/15/25 07:41 Plt Count 241 10^3/cmm (157-399) 07/15/25 07:41 MPV 10.4 fL (7.4-10.4) 07/15/25 07:41 Neut % (Auto) 47.9 % 07/15/25 07:41 Lymph % (Auto) 42.2 % 07/15/25 07:41 Roosevelt % (Auto) 5.1 % 07/15/25 07:41 Eos % (Auto) 3.8 % 07/15/25 07:41 Baso % (Auto) 0.9 % 07/15/25 07:41 Neut # (Auto) 4.12 10^3/uL (1.8-7.7) 07/15/25 07:41 Lymph # (Auto) 3.6 10^3/uL (0.8-4.8) 07/15/25 07:41 Roosevelt # (Auto) 0.4 10^3/uL (0.2-0.9) 07/15/25 07:41 Eos # (Auto) 0.3 10^3/uL (0.0-0.8) 07/15/25 07:41 Baso # (Auto) 0.1 10^3/uL (0.0-0.1) 07/15/25 07:41 Nucleated RBC % (auto) 0 % 07/15/25 07:41 Nucleated RBCs # 0.0 /100WBC 07/15/25 07:41 Sodium 139 mmol/L (136-145) 07/15/25 07:41 Potassium 3.9 mmol/L (3.5-5.1) 07/15/25 07:41 Chloride 103 mmol/L (98-107) 07/15/25 07:41 Carbon Dioxide 24 mmol/L (22-29) 07/15/25 07:41 Anion Gap 15.9 (5-19) 07/15/25 07:41 BUN 19 mg/dL (6-20) 07/15/25 07:41 Creatinine 1.2 mg/dL (0.5-0.9) H 07/15/25 07:41 GFR Calculation 46.5 mL/min (90-130) L 07/15/25 07:41 Glucose 220 mg/dL (65-115) H 07/15/25 07:41 Calculated Osmolality 297 mOsm/kg (285-295) H 07/15/25 07:41 Calcium 9.2 mg/dL (8.5-10.5) 07/15/25 07:41 Magnesium 1.8 mg/dL (1.7-2.3) 07/15/25 07:41 Total Bilirubin 0.2 mg/dL (0.15-1.2) 07/15/25 07:41 AST 17 U/L (0-32) 07/15/25 07:41 ALT 22 U/L (0-33) 07/15/25 07:41 Alkaline Phosphatase 117 U/L (35-105) H 07/15/25 07:41 Total Protein 7.4 g/dL (6.6-8.7) 07/15/25 07:41 Albumin 4.1 g/dL (3.5-5.2) 07/15/25 07:41 Globulin 3.3 g/dL (1.3-4.6) 07/15/25 07:41 All radiology interpretation(s) finalized by discharge EKG Data EKG 1: I personally reviewed and interpreted this EKG as follows: EKG interpretation date: 07/15/25 Prior EKG tracings: available for review Interpretation: EKG 07/15/2025 7:27 AM A-fib with RVR rate of [address] QTc [address] No acute ST changes at this time. Previous EKG 03/22/2024 showed normal sinus rhythm with a rate of 66. Computer generated interpretation: Chest X-Ray 07/15/25 07:20 IMPRESSION: No acute cardiopulmonary findings. EKG 2: I personally reviewed and interpreted this EKG as follows: Interpretation: EKG 07/15/2025 7:39 AM paced rhythm rate of 65 QTc 411. No acute changes noted no changes meeting Sgarbossa's criteria. Computer generated interpretation: Chest X-Ray 07/15/25 07:20 IMPRESSION: No acute cardiopulmonary findings. EKG 3: I personally reviewed and interpreted this EKG as follows: Interpretation: EKG 07/15/2025 9:53 AM paced rhythm rate of [address] changes QTc 420. No change from EKG done earlier same day Computer generated interpretation: Chest X-Ray 07/15/25 07:20 IMPRESSION: No acute cardiopulmonary findings. Discharge Plan Discharge Patient Disposition: Home Clinical Impression: Atrial fibrillation Condition: Stable Prescriptions: Changed metoprolol succinate 50 mg tablet extended release 24 hr 75 mg PO ONCE Qty: 45 0RF No Action (DME) Dexcom G7 Sensor Device See Rx Instructions .Route Qty: 3 11RF Rx Instructions: As directed potassium citrate 10 mEq (1,080 mg) tablet extended release See Rx Instructions .ROUTE .COMPLEX Qty: 90 5RF Dose Instruction: TAKE ONE TABLET BY MOUTH THREE TIMES DAILY Rx Instructions: TAKE ONE TABLET BY MOUTH THREE TIMES DAILY nateglinide 120 mg tablet 120 mg PO TID Qty: 270 1RF Rx Instructions: give before meal(s) galantamine 4 mg tablet 4 mg PO BID Qty: 180 3RF Rx Instructions: administer with AM and PM meals memantine [Namenda] 10 mg tablet 10 mg PO BID Qty: 180 3RF Rx Instructions: Take on table twice daily triamcinolone acetonide 0.1 % cream 1 applic topical BID Qty: 30 0RF cholecalciferol (vitamin D3) 1,250 mcg (50,000 unit) capsule 50,000 unit PO Q7D Qty: 90 0RF (DME) Dexcom G7 [employer] Misc See Rx Instructions .ROUTE .COMPLEX Qty: 1 0RF Dose Instruction: USE DIRECTED Rx Instructions: USE DIRECTED (DME) Pen Firth See Rx Instructions .Route .MEDSUPPLY Qty: 100 5RF Rx Instructions: As directed pregabalin 100 mg capsule 100 mg PO BID Qty: 60 5RF Rx Instructions: Covering for Dr. Ng levothyroxine 75 mcg tablet 75 mcg PO DAILY Qty: 90 1RF rosuvastatin 5 mg tablet 5 mg PO DAILY Qty: 90 1RF Eliquis 5 mg tablet See Rx Instructions .ROUTE .COMPLEX Qty: 120 3RF Dose Instruction: TAKE ONE TABLET BY MOUTH TWICE DAILY Rx Instructions: TAKE ONE TABLET BY MOUTH TWICE DAILY Lantus Solostar U-100 Insulin 100 unit/mL (3 mL) insulin pen See Rx Instructions .ROUTE .COMPLEX Qty: 15 1RF Dose Instruction: INJECT 45 UNITS SUBCUTANEOUSLY DAILY Rx Instructions: INJECT 46 UNITS SUBCUTANEOUSLY DAILY pantoprazole 40 mg tablet,delayed release (DR/EC) See Rx Instructions .ROUTE .COMPLEX Qty: 60 1RF Dose Instruction: TAKE ONE TABLET BY MOUTH TWICE DAILY FOR SIX WEEKS Rx Instructions: TAKE ONE TABLET BY MOUTH TWICE DAILY FOR SIX WEEKS donepezil 5 mg tablet 5 mg PO DAILY Qty: 90 0RF Rx Instructions: with breakfast fluticasone propionate 50 mcg/actuation spray,suspension See Rx Instructions .ROUTE .COMPLEX Qty: 16 2RF Dose Instruction: INSTILL TWO SPRAY INTO EACH NOSTRIL DAILY NEEDED FOR FOR ALLERGY SYMPTOMS Rx Instructions: INSTILL TWO SPRAY INTO EACH NOSTRIL DAILY NEEDED FOR FOR ALLERGY SYMPTOMS loratadine 10 mg Tablet 10 mg PO QAM Discharge Orders: Discharge ED (Routine); Ordered 07/15/25 Ordered By: Nico Sanchez Referrals: Tc Camacho DO [Primary Care Provider, Family Practice] Discharge Diet: Usual diet Discharge Activity: Increase activity as tolerated Patient Instructions: Opioid Safety, Pain Management, Patient Portal & Rey Instructions Activity Restrictions/Additional Instructions: Thank you for choosing [facility] for your healthcare needs today. It is very important that you follow up as instructed or that you return to the Emergency Department should you have concerns or if your condition changes or worsens in any way. Emergency department visits are focused on emergent conditions, in some cases you may require further evaluation on an outpatient basis. You were seen in the emergency room with a rapid heart rate this self corrected without any intervention in the ER. Recommend you increase your metoprolol to 75 mg once a day follow-up with your primary care doctor next week. Continue all of your other previous medications. (Please note that included in your discharge packet is information concerning opioid safety and pain management. This information is given to all patients were discharged from the ER regardless of their discharge diagnosis or the medicines they usually take or are prescribed.) Print Language: Korean Coding Level of Care Code ED Hand Wrapper Operator for Neeru Okeefe
--- NOTE | 2025-07-15 07:39 | ECG_ITS ---
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1970 Requested By: Nico Galindo Order Number: [id number] Reading MD: SHI FERREIRA Measurements Intervals [place] Rate: 65 P: 237 [place]: 212 QRS: 35 QRSD: 82 T: 49 QT: 395 QTc: 411 Interpretive Statements ELECTRONIC ATRIAL PACEMAKER SEPTAL MYOCARDIAL INFARCTION , OF INDETERMINATE AGE [40+ ms Q WAVE IN V1/V2] INTERPRETATION BASED ON A DEFAULT AGE OF 40 YEARS Compared to ECG 07/15/2025 07:27:48 Atrial fibrillation no longer present Myocardial infarct finding still present Electronically Signed On 07-16-2025 22:29:34 CDT by SHI FERREIRA [id number]
[2025-07-15 07:47] LABS: Hematocrit 42.3 % (36-47); Hemoglobin 13.60 g/dL (11.27-16.99); Mean Corpuscular HGB Conc 32.2 g/dL (30-55); Mean Corpuscular Hemoglobin 27.8 pg (27-33); Mean Corpuscular Volume 86.3 fl (85-98); Nucleated Red Blood Cells % 0 %; Platelet Count 241 10^3/cmm (157-399); Red Blood Count 4.90 10^6/uL (3.85-5.65); White Blood Count 8.62 10^3/uL (3.29-11.43)
[2025-07-15 07:50] VITALS: BP 146/92; PULSE 67; RESP 16; TEMP 36.8; O2SAT 96
[2025-07-15 08:04] LABS: Alanine Aminotransferase 22 U/L (0-33); Albumin Level 4.1 g/dL (3.5-5.2); Alkaline Phosphatase 117 U/L (35-105); Anion Gap 15.9 (5-19); Aspartate Amino Transferase 17 U/L (0-32); Blood Urea Nitrogen 19 mg/dL (6-20); Calcium 9.2 mg/dL (8.5-10.5); Carbon Dioxide 24 mmol/L (22-29); Chloride 103 mmol/L (98-107); Globulin 3.3 g/dL (1.3-4.6); Glucose 220 mg/dL (65-115); Magnesium 1.8 mg/dL (1.7-2.3); Osmolality Calculated 297 mOsm/kg (285-295); Potassium 3.9 mmol/L (3.5-5.1); Sodium 139 mmol/L (136-145); Total Protein 7.4 g/dL (6.6-8.7)
[2025-07-15 09:02] VITALS: BP 139/100; PULSE 65; RESP 20; O2SAT 93
--- NOTE | 2025-07-15 09:53 | ECG_ITS ---
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
[2025-07-15 10:12] VITALS: BP 168/87; PULSE 65; RESP 20; O2SAT 97
== END 2025-07-15 10:19 | disposition home or self-care (01) ==
PROVIDERS: Emergency Provider Family Medicine; PCP Family Medicine
DX: I48.91 Unspecified atrial fibrillation (principal); Z79.01 Long term (current) use of anticoagulants; E78.5 Hyperlipidemia, unspecified; E11.22 Type 2 diabetes mellitus with diabetic chronic kidney disease; N18.31 Chronic kidney disease, stage 3a; Z95.0 Presence of cardiac pacemaker
CPT/HCPCS: 71045; 80053; 83735; 85025; 93005; 99285